=== PATIENT | male | born 1935 | race Caucasian/White ===

== ENCOUNTER 2024-02-12 10:46 | Inpatient (IN) | payer MEDICARE, OTHER, SELFPAY ==
[2024-02-12] VITALS (18 sets, daily range): BP systolic 86–148; BP diastolic 48–78; PULSE 90–126; RESP 16–24; TEMP 36.2–36.8; O2SAT 92–100; BMI 29.4
--- NOTE | 2024-02-12 10:56 | ECG_ITS ---
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 Measurements Intervals [place] Rate: 123 P: 44 SC: 168 QRS: -14 QRSD: 80 T: 63 QT: 415 QTc: 594 Interpretive Statements SINUS TACHYCARDIA LOW QRS VOLTAGE IN PRECORDIAL LEADS [QRS DEFLECTION < 1.0 mV IN CHEST LEADS] PATTERN CONSISTENT WITH PULMONARY DISEASE Compared to ECG 01/26/2023 17:03:04 Low QRS voltage now present Sinus rhythm no longer present First degree AV block no longer present Electronically Signed On 02-12-2024 17:56:37 CDT by Marii Quinn M.D. [email or web address] [email or web address]/store/[id number]
--- NOTE | 2024-02-12 11:17 | ED_ITS ---
HPI - Nausea/Vomiting/Diarrhea 2 General: Chief complaint: Nausea/Vomiting/Diarrhea Stated complaint: N/V/D, weakness Time Seen by Provider: 02/12/24 10:55 Source: patient and family Mode of arrival: EMS History of Present Illness: 88-year-old male presents emergency room with complaints of nausea with diarrhea for the last 3 days copious amounts of watery brown stool denies any hematemesis or coffee-ground emesis denies hematochezia or melena. He is not on any anticoagulants. He does take an aspirin daily. No recent antibiotics. MD elicited complaint: nausea and diarrhea Onset (ago): day(s) Associated nausea: No Associated abdominal pain: Yes Location of pain: None Pain consistency: constant Severity: mild Quality: cramping Relieving factors: none Associated symtoms: Denies altered mental status, anxiety, bloating, change in vision, chest pain, cough, diaphoresis, decreased urine output, dizziness, dysuria, epistaxis, fatigue, fecal incontinence, fevers/chills, headache(s), anorexia, malaise, myalgias, nausea, numbness, palpitations, rash, short of breath, syncope, tenesmus, tinnitus or weakness Review of Systems 2 Const: Denies: fever(s), chills, fatigue, malaise or diaphoresis Eyes: Denies: change in vision ENMT: Denies: tinnitus or epistaxis Card: Denies: chest pain, palpitations or syncope Resp: Denies: dyspnea GI: Denies: nausea, bloating or fecal incontinence : Denies: dysuria Musc: Denies: neck pain or back pain Skin/Breast: Denies: rash Neuro: Denies: headache(s) or dizziness Psych: Denies: anxiety PFSH ED 2 PFSH: Medical History Anemia Carotid artery disease Cerebrovascular accident DJD (degenerative joint disease) Hyperlipidemia Hypertension Hypokalemia 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) Surgical History History of cataract surgery History of left-sided carotid endarterectomy Family History Other Cancer Social History Smoking and tobacco/nicotine status: current every day tobacco/nicotine user smokeless tobacco Alcohol intake: never Physical Exam 2 Const: EXAM LIMITATIONS: no altered mental status GENERAL APPEARANCE: c ooperative and comfortable ORIENTATION/CONSCIOUSNESS: Yes awake, Yes oriented to person, Yes oriented to place and Yes oriented to time HENMT: COMMON NORMALS: normocephalic, atraumatic and hearing grossly normal bilaterally HEAD & SCALP: normocephalic and atraumatic Resp: COMMON NORMALS: normal respiratory effort, No retractions, No use of accessory muscles and clear to auscultation bilaterally AUSCULTATION: clear to auscultation bilaterally Cardio: COMMON NORMALS: regular rate, regular rhythm and No murmurs present (Cardio) RATE: regular rate RHYTHM: regular rhythm GI: COMMON NORMALS: No hepatosplenomegaly present AUSCULTATION: Yes Absent bowel sounds PALPATION: Yes Tenderness to palpation present (GI), No Guarding due to palpation present (GI) and Yes No hepatosplenomegaly present Extremity: COMMON NORMALS: normal to inspection, capillary refill normal, no clubbing, cyanosis or edema, no calf tenderness and no pedal edema Neuro: SENSORIUM/ORIENTATION: Yes oriented to person, Yes oriented to place and Yes oriented to time Skin: COMMON NORMALS: no rashes or lesions noted GENERAL SKIN EXAM: no rashes or lesions noted Course 2 Vital Signs: Vital signs: Vital Signs Temperature 98.3 F 02/12/24 10:52 Pulse Rate 106 H 02/12/24 12:01 Respiratory Rate 24 H 02/12/24 12:01 Blood Pressure 96/56 02/12/24 12:01 Pulse Oximetry 95 02/12/24 12:01 Oxygen Delivery Me thod Room Air 02/12/24 12:01 MDM - Nausea/Vomiting/Diarrhea Medical Decision Making In December 2022 patient was noted to have a colonic mass. Patient tells me today he was aware this elected not to do any follow-up. On the CT today as it increased and it is increased in size is also evidence of prostate CA. It is not obstructing his colon at the splenic flexure causing air-fluid levels backing up multiple with the stomach. NG applied started on Zosyn as there is some pneumatosis of the colon proximal to the area of obstruction. Will admit to consult surgery. Medical Records I reviewed the patient's medical records. Lab Data I reviewed the patient's lab results. 02/12/24 11:07 02/12/24 11:07 Radiology Impressions Abdomen/Pelvis CT 02/12/24 11:56 IMPRESSION: 1. Diffuse nodular thickening of the mid and distal transverse colon with luminal narrowing highly suspicious for neoplasm progressed compared to previous. Transition point to normal caliber bowel distal to the suspected neoplasm. Diffuse bowel obstruction proximal to the transition point. Recommend further evaluation with colonoscopy. 2. Induration about the suspected neoplasm suspicious for surrounding mesenteric invasion. 3. Proximal bowel obstruction with air-fluid level in the stomach and moderate esophageal hiatal hernia with fluid. 4. Diffuse distended loops of small bowel with air-fluid levels. 5. Distended RIGHT colon and proximal transverse colon with pneumatosis in the cecum and hepatic flexure. 6. Markedly enlarged nodular prostate suspicious for neoplasia with bladder outlet obstruction and nodular thickening of the seminal vesicles. 7. Nodular thickening of the rectosigmoid segment which may be due to stool but neoplasm not excluded. 8. Cholelithiasis with gallbladder wall calcification. Notified Ashish Mcgee DO at 02/12/2024 1:05 PM. Laboratory Results WBC 17.10 10^3/uL (3.29-11.43) H 02/12/24 11:07 RBC 5.15 10^6/uL (3.85-5.65) 02/12/24 11:07 Hgb 9.20 g/dL (11.27-16.99) L 02/12/24 11:07 Hct 31.3 % (37-53) L 02/12/24 11:07 MCV 60.8 fl (82-101) L 02/12/24 11:07 MCH 17.9 pg (27-33) L 02/12/24 11:07 MCHC 29.4 g/dL (30-55) L 02/12/24 11:07 RDW 23.1 % (12.1-15.1) H 02/12/24 11:07 Plt Count 722 10^3/cmm (157-399) H 02/12/24 11:07 MPV 8.2 fL (7.4-10.4) 02/12/24 11:07 Neut % (Auto) 79.9 % 02/12/24 11:07 Lymph % (Auto) 7.1 % 02/12/24 11:07 [place] % (Auto) 12.4 % 02/12/24 11:07 Eos % (Auto) 0.1 % 02/12/24 11:07 Baso % (Auto) 0.2 % 02/12/24 11:07 Neut # (Auto) 13.66 10^3/uL (1.8-7.7) H 02/12/24 11:07 Lymph # (Auto) 1.2 10^3/uL (0.8-4.8) 02/12/24 11:07 [place] # (Auto) 2.1 10^3/uL (0.2-0.9) H 02/12/24 11:07 Eos # (Auto) 0.0 10^3/uL (0.0-0.8) 02/12/24 11:07 Baso # (Auto) 0.0 10^3/uL (0.0-0.1) 02/12/24 11:07 Nucleated RBC % (auto) 0 % 02/12/24 11:07 Nucleated RBCs # 0.0 /100WBC 02/12/24 11:07 Anisocytosis 3+ H 02/12/24 11:07 Microcytosis 2+ H 02/12/24 11:07 Viry Cells 3+ H 02/12/24 11:07 Acanthocytes (Spur) 1+ H 02/12/24 11:07 Sodium 134 mmol/L (136-145) L 02/12/24 11:07 Potassium 3.6 mmol/L (3.5-5.1) 02/12/24 11:07 Chloride 97 mmol/L (98-107) L 02/12/24 11:07 Carbon Dioxide 18 mmol/L (22-29) L 02/12/24 11:07 Anion Gap 22.6 (5-19) H 02/12/24 11:07 BUN 21 mg/dL (8-23) 02/12/24 11:07 Creatinine 1.0 mg/dL (0.7-1.2) 02/12/24 11:07 GFR Calculation Not Reportable 02/12/24 11:07 Glucose 211 mg/dL (65-115) H 02/12/24 11:07 Calculated Osmolality 287 mOsm/kg (285-295) 02/12/24 11:07 Calcium 8.1 mg/dL (8.5-10.5) L 02/12/24 11:07 Magnesium 1.9 mg/dL (1.7-2.3) 02/12/24 11:07 Total Bilirubin 0.6 mg/dL (0.15-1.2) 02/12/24 11:07 AST 15 U/L (0-40) 02/12/24 11:07 ALT 10 U/L (0-41) 02/12/24 11:07 Alkaline Phosphatase 107 U/L (40-130) 02/12/24 11:07 Creatine Kinase 47 U/L (39-308) 02/12/24 11:07 Troponin T Baseline 11 ng/L (0-15) 02/12/24 11:07 Total Protein 6.1 g/dL (6.6-8.7) L 02/12/24 11:07 Albumin 2.7 g/dL (3.5-5.2) L 02/12/24 11:07 Globulin 3.4 g/dL (1.3-4.6) 02/12/24 11:07 Lipase 5 U/L (13-60) L 02/12/24 11:07 All radiology interpretation(s) finalized by discharge Discharge Plan Discharge Patient Disposition: Admitted As Inpatient Clinical Impression: Colonic mass, Enlarged prostate, Obstruction, colon Condition: Stable Coding Level of Care Code ED Sampler Radioactive Waste for Zeferino Valderrama
[2024-02-12 11:20] LABS: Basophils % 0.2 %; Eosinophils % 0.1 %; Hematocrit 31.3 % (37-53); Lymphocytes # 1.2 10^3/uL (0.8-4.8); Lymphocytes % 7.1 %; Mean Corpuscular HGB Conc 29.4 g/dL (30-55); Mean Corpuscular Hemoglobin 17.9 pg (27-33); Mean Corpuscular Volume 60.8 fl (82-101); Mean Platelet Volume 8.2 fL (7.4-10.4); Monocytes # 2.1 10^3/uL (0.2-0.9); Monocytes % 12.4 %; Neutrophils # 13.66 10^3/uL (1.8-7.7); Neutrophils % 79.9 %; Nucleated Red Blood Cells % 0 %; Platelet Count 722 10^3/cmm (157-399); Red Blood Count 5.15 10^6/uL (3.85-5.65); Red Cell Distribution Width 23.1 % (12.1-15.1)
[2024-02-12 11:36] LABS: Alanine Aminotransferase 10 U/L (0-41); Albumin Level 2.7 g/dL (3.5-5.2); Alkaline Phosphatase 107 U/L (40-130); Anion Gap 22.6 (5-19); Aspartate Amino Transferase 15 U/L (0-40); Blood Urea Nitrogen 21 mg/dL (8-23); Calcium 8.1 mg/dL (8.5-10.5); Carbon Dioxide 18 mmol/L (22-29); Chloride 97 mmol/L (98-107); Creatine Phosphokinase 47 U/L (39-308); Creatinine Clr Calc Pharmacy 50.8909; Globulin 3.4 g/dL (1.3-4.6); Glucose 211 mg/dL (65-115); Lipase 5 U/L (13-60); Magnesium 1.9 mg/dL (1.7-2.3); Osmolality Calculated 287 mOsm/kg (285-295); Potassium 3.6 mmol/L (3.5-5.1); Sodium 134 mmol/L (136-145); Total Bilirubin 0.6 mg/dL (0.15-1.2); Total Protein 6.1 g/dL (6.6-8.7); Troponin(5th) Baseline 11 ng/L (0-15)
[2024-02-12 11:45] LABS: Add RBC Morph Yes
[2024-02-12 11:46] LABS: Acanthocytes 1+; Anisocytosis 3+; Burr Cells 3+; Microcytosis 2+; RBC Morph Comp No; Slide Review Slide Review Perform
[2024-02-12] MEDS: sodium chloride 0.9% 1,000 ML 999 ML IV (11:51)
[2024-02-12] MEDS: ondansetron 2 mg/ML SDV 2 mL 4 MG IVP (11:54)
--- NOTE | 2024-02-12 11:56 | CT_ITS ---
WS: [id number] CT ABDOMEN PELVIS TECHNIQUE: Noncontrast CT of the abdomen and pelvis with coronal and sagittal reformatted images. CLINICAL INFORMATION: Abdominal pain COMPARISON: 01/27/2023 DLP: 774.[address] scans at [facility] use at least one of these dose optimization techniques: automated e xposure control; mA and/or kV adjustment per patient size (includes targeted exams where dose is matc hed to clinical indication); or iterative reconstruction. FINDINGS: Previously described suspected neoplasm involving the transverse colon appears progressed today lalo red to previous with diffuse nodular colonic wall thickening involving the mid and distal transverse colon with luminal narrowing. Transition point to normal colon distal to the suspected neoplasm. Susp ected neoplasm extends over approximately 9 cm of colon. Distal colon is decompressed. Sigmoid colon is decompressed. Nodular thickening involving the distal sigmoid colon. Recommend further evaluation of the above findings with colonoscopy. A few sigmoid diverticuli. Tortuous sigmoid colon. Air-fluid level in the stomach. Moderate esophageal hiatal hernia with fluid in the hiatal hernia. Di stended loops of fluid-filled small bowel with air-fluid levels. Distended RIGHT colon and proximal t ransverse colon with air-fluid levels. Pneumatosis in the cecum and hepatic flexure. Markedly enlarged nodular prostate suspicious for neoplasm measuring 5.5 cm with diffuse nodular thic kening of the seminal vesicles. Diffuse bladder wall thickening compatible with bladder outlet obstru ction. Gallbladder calcifications similar to previous. Coronary calcification. Fibrosis in the lung b ases. Dense aortic calcification. Tiny fat-containing umbilical hernia. Fatty atrophy of the pancreas . Adrenal glands are normal. Bilateral renal cortical atrophy. RIGHT renal cyst. No hydronephrosis in either kidney. Advanced spondylitic changes lumbar spine with grade [address]5 on S1. CT/CT abdomen pelvis wo con [id number] IMPRESSION: 1. Diffuse nodular thickening of the mid and distal transverse colon with delvin nal narrowing highly suspicious for neoplasm progressed compared to previous. T ransition point to normal caliber bowel distal to the suspected neoplasm. Diffu se bowel obstruction proximal to the transition point. Recommend further evalua tion with colonoscopy. 2. Induration about the suspected neoplasm suspicious for surrounding mesenter ic invasion. 3. Proximal bowel obstruction with air-fluid level in the stomach and moderate esophageal hiatal hernia with fluid. 4. Diffuse distended loops of small bowel with air-fluid levels. 5. Distended RIGHT colon and proximal transverse colon with pneumatosis in the cecum and hepatic flexure. 6. Markedly enlarged nodular prostate suspicious for neoplasia with bladder ou tlet obstruction and nodular thickening of the seminal vesicles. 7. Nodular thickening of the rectosigmoid segment which may be due to stool bu t neoplasm not excluded. 8. Cholelithiasis with gallbladder wall calcification. Notified Ashish Mcgee DO at 02/12/2024 1:05 PM.
--- NOTE | 2024-02-12 12:56 | ECG_ITS ---
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 Measurements Intervals [place] Rate: 104 P: 46 UT: 186 QRS: -10 QRSD: 82 T: 0 QT: 352 QTc: 464 Interpretive Statements SINUS TACHYCARDIA LOW QRS VOLTAGE IN PRECORDIAL LEADS [QRS DEFLECTION < 1.0 mV IN CHEST LEADS] Nonspecific T wave changes ABNORMAL RHYTHM ECG Compared to ECG 02/12/2024 11:01:27 No significant changes Electronically Signed On 02-12-2024 18:09:45 CDT by Marii Quinn M.D. [id number]
--- NOTE | 2024-02-12 13:28 | XRR_ITS ---
PROCEDURE INFORMATION: Exam: XR Chest Exam date and time: 02/12/2024 1:29 PM Age: 88 years old Clinical indication: Device placement; Ng tube; Additional info: Ng tube placement TECHNIQUE: Imaging protocol: Radiologic exam of the chest. Views: 1 view. COMPARISON: CR XR chest 2V* [id number] 08/12/2021 11:01 AM FINDINGS: Tubes, catheters and devices: In NG tube is seen with distal aspect of the catheter in the upper left abdomen at the expected level of the mid stomach. Lungs: Visualized lung suggests component of basilar atelectasis. Pleural spaces: No significant pleural effusion or pneumothorax. Heart/Mediastinum: Unremarkable. No cardiomegaly. Arteriosclerosis of the thoracic aorta. Bones/joints: Degenerative bony changes. Intraperitoneal space: No indication of free air. Gastrointestinal tract: Visualized dilated small bowel loops and right colon, as noted on CT exam. XR/XR chest 1V portable [id number] IMPRESSION: NG tube appears at the expected level of the mid stomach in the upper left abdomen.
[2024-02-12] MEDS: piperacillin-tazobactam 3.375 GM in sodium chloride 0.9% (plus) 50 ML IV ×2 (13:40→23:39)
[2024-02-12 14:10] LABS: Lactic Sepsis W/Reflex 6.4 mmol/L (0.5-2.2)
[2024-02-12 14:14] LABS: Troponin 5 2HR 10.21 ng/L (0-15)
[2024-02-12 14:15] LABS: Troponin 5 2HR Delta -0.79 ABS# (0-10)
[2024-02-12 15:05] LABS: Add Urine Microscopic? YES; Bilirubin Urine 1+ (Negative); Blood Urine Neg (Negative); Glucose Urine UA Norm (Normal); Ketones Urine 2+ (Negative); Leukocyte Esterase Urine Trace (Negative); Nitrate Urine Negative (Negative); Protein Urine 1+ (Negative); Urine Appearance Clear (CLEAR); Urine Color Amber (Yellow); Urobilinogen Urine 4 mg/dL (Negative); pH Urine 5 (5-7)
[2024-02-12 15:06] LABS: Add Urine Culture? No; Amorphous Sediment Urine 1+ /hpf; Hyaline Casts Urine 0-4 /lpf; Mucus Urine 1+ /hpf; Sperm Urine 1+ /hpf; Squamous Epithelial Cell Urine 0-4 /hpf (0-5); WBC Urine RARE /hpf (0-5)
[2024-02-12 15:29] LABS: Reflex Lactate Order REFLEX LACTIC ORDERD
--- NOTE | 2024-02-12 15:37 | P.ANESASSM_ITS ---
Pre-Anesthetic Assessment Height/Weight: Height 1.68 m Weight 83.915 kg Temp Pulse Resp BP Pulse Ox O2 Del Method 98.3 F 102 H 18 98/48 96 Room Air 02/12/24 10:52 02/12/24 15:04 02/12/24 15:04 02/12/24 15:04 02/12/24 15:04 02/12/24 15:04 Operation Date: 02/12/24 16:30 Proposed Procedures p Exploratory Laparotomy, bowel resection, ostomy creation(Not Applicable) - Marcus Calderon, DO Social No alcohol chews tobacco Airway Submandibular: within normal limits Cervical ROM: within normal limits Mallampati: Class I Pulmonary None reported CV/HEM Hypertension None reported Hepatic None reported GI ngt in place Metabolic None reported Neuropsych Cerebrovascular Accident s/p CEA Anesthetic Plan ASA status: 3E Anesthesia: General Other: plan RSI Risk of > 500 ml blood loss (7ml/kg in children): Yes, adequate IV access and fluids planned Medications/Allergies Home Medications Medication Instructions Recorded Confirmed Last Taken Type aspirin 325 mg tablet 325 mg PO DAILY 30 days #30 tabs 01/29/23 02/12/24 02/12/24 Rx atorvastatin 40 mg tablet 80 mg (2 x 40 mg) PO BEDTIME 30 05/04/23 02/12/24 02/11/24 Rx days #180 tabs losartan 25 mg tablet 25 mg PO DAILY #90 tabs 05/04/23 02/12/24 02/12/24 Rx acetaminophen 500 mg tablet 500 mg PO Q6H PRN Pain 02/12/24 02/12/24 Unknown History hydrochlorothiazide 25 mg tablet 12.5 mg PO DAILY 02/12/24 02/12/24 02/12/24 History saw palmetto 450 mg capsule 450 mg PO BID 02/12/24 02/12/24 02/12/24 History sennosides 8.6 mg-docusate sodium 1 tab-cap PO DAILY PRN Constipation 02/12/24 02/12/24 Unknown History 50 mg tablet (Senokot-S) Allergies Allergy/AdvReac Type Severity Reaction Status Date / Time Sulfa (Sulfonamide Allergy Severe Unknown Verified 02/12/24 11:01 Antibiotics) acetaminophen [From Percocet] AdvReac Severe stomach Verified 02/12/24 11:01 pain oxycodone [From Percocet] AdvReac Severe stomach Verified 02/12/24 11:01 pain [facility] Anesthesia Medical History Anemia Carotid artery disease Cerebrovascular accident DJD (degenerative joint disease) Hyperlipidemia Hypertension Hypokalemia 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) Surgical History History of cataract surgery History of left-sided carotid endarterectomy Family History Other Cancer Social History Smoking and tobacco/nicotine status: current every day tobacco/nicotine user smokeless tobacco Alcohol intake: never Data Anesthesia 02/12/24 11:07 02/12/24 11:07 Short CBC 02/12/24 Range/Units 11:07 WBC 17.10 H (3.29-11.43) 10^3/uL Hgb 9.20 L (11.27-16.99) g/dL Hct 31.3 L (37-53) % MCV 60.8 L (82-101) fl Plt Count 722 H (157-399) 10^3/cmm Neut % (Auto) 79.9 % Neut # (Auto) 13.66 H (1.8-7.7) 10^3/uL BMP 02/12/24 11:07 Sodium 134 L Potassium 3.6 Chloride 97 L Carbon Dioxide 18 L BUN 21 Creatinine 1.0 Glucose 211 H Calcium 8.1 L Cardiac Enzymes 02/12/24 02/12/24 Range/Units 11:07 13:47 Creatine Kinase 47 (39-308) U/L Troponin T Baseline 11 (0-15) ng/L Troponin T 120 Minute 10.21 (0-15) ng/L Delta Troponin T -0.79 L (0-10) ABS# Liver Function 02/12/24 Range/Units 11:07 Total Bilirubin 0.6 (0.15-1.2) mg/dL AST 15 (0-40) U/L ALT 10 (0-41) U/L Alkaline Phosphatase 107 (40-130) U/L Albumin 2.7 L (3.5-5.2) g/dL Urine 02/12/24 Range/Units 14:26 Urine Color Natalia (Yellow) Urine Appearance Clear (CLEAR) Urine pH 5 (5-7) Ur Specific [place] 1.020 (1.005-1.030) Urine Protein 1+ H (Negative) Urine Glucose (UA) Norm (Normal) Urine Ketones 2+ H (Negative) Urine Nitrate Negative (Negative) Urine Bilirubin 1+ H (Negative) Ur Leukocyte Esterase Trace H (Negative) Urine RBC None (0-2) /hpf Urine WBC Rare (0-5) /hpf Blood Bank 02/12/24 13:47 Blood Type A Positive Rho(D) Type Rh positive Antibody Screen Negative Microbiology 02/12/24 14:36 Blood Culture - Preliminary Blood SPECIMEN COLLECTED 02/12/24 14:44 Blood Culture - Preliminary Blood SPECIMEN COLLECTED Cardiac Studies: 2 Echocardiogram 01/26/23
[2024-02-12] MEDS: sodium chloride 0.9% 1,000 ML 30 ML IV (16:26)
--- NOTE | 2024-02-12 16:41 | P.HP_ITS ---
Providers/Chief Complaint 2 Admitting Physician: Marcus Calderon DO Primary Care Provider: Erik Morgan MD Chief Complaint: N/V/D, weakness History of Present Illness Maurice Whitehead is a 88 year old male who presented to the hospital with a 2-day history of abdominal pain nausea diarrhea and anorexia. He reports that he has been unable to eat. He has past medical history of CVA x 2 on only aspirin 325 mg daily. He last took it this morning. He has not had anything to eat or drink for the last 2 days. 1 year ago he was found to have a mass in his transverse colon that he elected not to treat. Currently has diffuse abdominal pain. Patient makes pain worse. Nothing makes pain better. Pain is dull and constant and does not radiate. He denies any emesis, hematochezia and/or melena. A CT of the abdomen pelvis shows a large bowel obstruction with an obstructing mass in his distal transverse colon. There also appears to be some pneumatosis of the cecum and a possible rectal mass. Review of Systems 2 General: Reports: 10 or more systems reviewed and unremarkable except in HPI and below Medications/Allergies Home Medications Medication Instructions Recorded Confirmed Last Taken Type aspirin 325 mg tablet 325 mg PO DAILY 30 days #30 tabs 01/29/23 02/12/24 02/12/24 Rx atorvastatin 40 mg tablet 80 mg (2 x 40 mg) PO BEDTIME 30 05/04/23 02/12/24 02/11/24 Rx days #180 tabs losartan 25 mg tablet 25 mg PO DAILY #90 tabs 05/04/23 02/12/24 02/12/24 Rx acetaminophen 500 mg tablet 500 mg PO Q6H PRN Pain 02/12/24 02/12/24 Unknown History hydrochlorothiazide 25 mg tablet 12.5 mg PO DAILY 02/12/24 02/12/24 02/12/24 History saw palmetto 450 mg capsule 450 mg PO BID 02/12/24 02/12/24 02/12/24 History sennosides 8.6 mg-docusate sodium 1 tab-cap PO DAILY PRN Constipation 02/12/24 02/12/24 Unknown History 50 mg tablet (Senokot-S) Allergies Allergy/AdvReac Type Severity Reaction Status Date / Time Sulfa (Sulfonamide Allergy Severe Unknown Verified 02/12/24 11:01 Antibiotics) acetaminophen [From Percocet] AdvReac Severe stomach Verified 02/12/24 11:01 pain oxycodone [From Percocet] AdvReac Severe stomach Verified 02/12/24 11:01 pain PFSH Acute 2 PFSH: Medical History Anemia Hypokalemia Hyperlipidemia DJD (degenerative joint disease) Carotid artery disease Hypertension 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) Cerebrovascular accident Surgical History History of cataract surgery History of left-sided carotid endarterectomy Family History Other Cancer Social History Smoking and tobacco/nicotine status: current every day tobacco/nicotine user smokeless tobacco Alcohol intake: never Vitals/I&O/Wt Last Vital Signs Temp 97.8 F 02/12/24 15:40 Pulse 103 H 02/12/24 15:40 Resp 16 02/12/24 15:40 BP 135/54 02/12/24 15:40 Pulse Ox 96 02/12/24 15:40 O2 Del Method Room Air 02/12/24 15:40 02/12/24 02/12/24 02/12/24 06:59 14:59 22:59 Intake Total 1000 / 1000 50 / 1050 Balance 1000 / 1000 50 / 1050 Weight last 48 hrs Weight 185 lb Physical Exam 2 Narrative: General : Patient is well developed , no acute distress, oriented x3 Head : Normal cephalic, a-traumatic. Ears : Pinnae and external canal are normal. Hearing is normal. Eyes : PERRLA, Sclera and injection are normal. No conjunctival discharge. Nose : Mucous membranes are without erythema. Throat : buccal mucosa is normal, gums are without significant recession or hypertrophy. Lungs : Equal chest rise bilaterally, no use of accessory muscles, trachea is midline. Cor : Rate and rhythm are normal. Abdomen : Soft, distended, mild diffuse tenderness, no g/r/m Extremities : No edema, no cyanosis or clubbing, dorsalis pedis pulses are present bilaterally, non-tender to palpation of calves. Upper extremities are normal bilaterally. Back : non-tender to palpation, no CVA tenderness. Neuro : CN II - XII intact, Upper and lower extremities have equal and full strength Urinary Catheter Management: Dougherty: Cath Placed During This Visit: yes Urinary Catheter Date of Insertion: 02/12/24 Urinary Catheter Time of Insertion: 14:30 Data 02/12/24 11:07 02/12/24 11:07 Micro: Microbiology 02/12/24 14:36 Blood Culture - Preliminary Blood SPECIMEN COLLECTED 02/12/24 14:44 Blood Culture - Preliminary Blood SPECIMEN COLLECTED A&P Assessment and plan (1) Obstruction, colon: (2) Colonic mass: (3) Rectal mass: (4) SIRS (systemic inflammatory response syndrome): Plan After long discussion with the patient, his and his son, he wants to proceed with all medical and surgical interventions. He is full code. Zosyn Type and cross Transfuse 1 below platelets because he took full dose aspirin this morning NG tube IV fluids Exploratory laparotomy with bowel resection and ostomy formation The risks and benefits of the procedure, including but not limited to, bleeding, infection, scar, numbness, pain, damage to surrounding structures, ostomy malfunction, possible need for further surgery, , or explained to the patient. He is understanding of the risks and wishes to proceed. I fully explained to the patient and his family that this is an extensive surgery and he may not do well afterwards. This is not a curative surgery regarding his colon mass and we will not be addressing his possible rectal mass during the surgery. He still wants to proceed Consult hospitalist Attestations 2 Medical Necessity Statement*: Patient requires multiple nights in the hospital for recovery after exploratory laparotomy with bowel resection and ostomy formation Coding Level of Care Code 86823 Diagnoses Obstruction, colon K56.609 Colonic mass K63.89 Rectal mass K62.89 SIRS (systemic inflammatory response syndrome) R65.10
--- NOTE | 2024-02-12 17:50 | P.CONIM_ITS ---
Providers/Reason For Consult 2 Attending Physician: Marcus Calderon DO Primary Care Provider: Erik Morgan MD History of Present Illness History of Present Illness Maurice Whitehead is a 88 year old male Presented with 2-day history abdominal pain nausea vomiting anorexia. Hospital service was consulted for postoperative management, patient went for exploratory laparotomy with Dr. Calderon. Patient meets sepsis criteria with tachypnea tachycardia, leukocytosis, endorgan damage, high lactic acid, CEA levels are high as well Review of Systems 2 Const: Reports: malaise Eyes: Denies: change in vision Card: Denies: chest pain Resp: Reports: dyspnea GI: Reports: abdominal pain and nausea Medications/Allergies Home Medications Medication Instructions Recorded Confirmed Last Taken Type aspirin 325 mg tablet 325 mg PO DAILY 30 days #30 tabs 01/29/23 02/12/24 02/12/24 Rx atorvastatin 40 mg tablet 80 mg (2 x 40 mg) PO BEDTIME 30 05/04/23 02/12/24 02/11/24 Rx days #180 tabs losartan 25 mg tablet 25 mg PO DAILY #90 tabs 05/04/23 02/12/24 02/12/24 Rx acetaminophen 500 mg tablet 500 mg PO Q6H PRN Pain 02/12/24 02/12/24 Unknown History hydrochlorothiazide 25 mg tablet 12.5 mg PO DAILY 02/12/24 02/12/24 02/12/24 History saw palmetto 450 mg capsule 450 mg PO BID 02/12/24 02/12/24 02/12/24 History sennosides 8.6 mg-docusate sodium 1 tab-cap PO DAILY PRN Constipation 02/12/24 02/12/24 Unknown History 50 mg tablet (Senokot-S) Allergies Allergy/AdvReac Type Severity Reaction Status Date / Time Sulfa (Sulfonamide Allergy Severe Unknown Verified 02/12/24 11:01 Antibiotics) acetaminophen [From Percocet] AdvReac Severe stomach Verified 02/12/24 11:01 pain oxycodone [From Percocet] AdvReac Severe stomach Verified 02/12/24 11:01 pain Current Medications Generic Name Dose Route Start Last Admin Trade Name Freq PRN Reason Stop Dose Admin Sodium Chloride 1,000 mls @ 30 mls/hr 02/12/24 16:15 02/12/24 17:36 Sodium Chloride 0.9% IV Infused .Q24H MICKI Infusion PFSH Acute 2 PFSH: Medical History Anemia Hypokalemia Hyperlipidemia DJD (degenerative joint disease) Carotid artery disease Hypertension 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) Cerebrovascular accident Surgical History History of cataract surgery History of left-sided carotid endarterectomy Family History Other Cancer Social History Smoking and tobacco/nicotine status: current every day tobacco/nicotine user smokeless tobacco Alcohol intake: never Vitals/I&O/Wt Last Vital Signs Temp 97.8 F 02/12/24 15:40 Pulse 103 H 02/12/24 15:40 Resp 16 02/12/24 15:40 BP 135/54 02/12/24 15:40 Pulse Ox 96 02/12/24 15:40 O2 Del Method Room Air 02/12/24 15:40 02/12/24 02/12/24 02/12/24 06:59 14:59 22:59 Intake Total 1000 / 1000 1050 / 2050 Balance 1000 / 1000 1050 / 2050 Weight last 48 hrs Weight 83.915 kg Physical Exam 2 Urinary Catheter Management: Dougherty: Cath Placed During This Visit: yes Urinary Catheter Date of Insertion: 02/12/24 Urinary Catheter Time of Insertion: 14:30 Data 02/12/24 11:07 02/12/24 11:07 Micro: Microbiology 02/12/24 14:36 Blood Culture - Preliminary Blood SPECIMEN COLLECTED 02/12/24 14:44 Blood Culture - Preliminary Blood SPECIMEN COLLECTED A&P Assessment and plan (1) Colonic mass: (2) Obstruction, colon: (3) Rectal mass: (4) Enlarged prostate: (5) SIRS (systemic inflammatory response syndrome): (6) Sepsis: (7) Dehydration: Plan Sepsis Criteria met with tachypnea tachycardia high lactic acid Endorgan damage Patient was treated 1 L in the ER, I will give him second liter He had received Zosyn, will add vancomycin to Zosyn as well Blood cultures taken, repeat lactic acid Patient to remain n.p.o. NG tube placed Exploratory laparotomy Continue IV fluids at maintenance rate Check CRP, CEA, phosphorus, magnesium, hemoglobin A1c level Patient's history history of anemia, carotid disease, CVA Patient is full code 2022 echo reviewed EF 57% grade 1 diastolic dysfunction N.p.o. History of hypertension: Hold hydrochlorothiazide Judicious use of antihypertensive regimen Considering urgent nature of surgical intervention no preoperative cardiac workup indicated Consult Attestations 2 Medical Necessity Statement: As per general surgery Diagnoses Colonic mass K63.89 Obstruction, colon K56.609 Rectal mass K62.89 Enlarged prostate N40.0 SIRS (systemic inflammatory response syndrome) R65.10 Sepsis A41.9 Dehydration E86.0
--- NOTE | 2024-02-12 17:51 | PC.RESP ---
EKG CANCELED DUE TO PT BEING IN SURGERY AND NOT AVAILABLE
--- NOTE | 2024-02-12 18:11 | PC.NURSE ---
called Blood Bank to verify timing of platelets given after 20 minute procurement.
[2024-02-12 18:25] LABS: D Dimer 6.16 ug/mLFEU (0-0.59)
[2024-02-12 18:32] LABS: Procalcitonin 0.81 ng/mL (0-0.5)
--- NOTE | 2024-02-12 18:58 | PC.NURSE ---
patient's updated at 1850
--- NOTE | 2024-02-12 19:42 | PM.OP ---
Operative Report Date of procedure: February 12, 2024 Pre-op diagnosis: Large bowel obstruction from transverse colon mass Umbilical hernia Post-op diagnosis: same Procedure done: Exploratory laparotomy with extended right hemicolectomy Primary repair of umbilical hernia Implants: None Specimens removed/disposition: Extended right hemicolectomy Hernia sac Surgeon: Marcus Calderon DO Anesthesia: General Estimated blood loss (mL): 20 Complications: None apparent Brief History: This very pleasant 88-year-old gentleman who presented to hospital with a known colon mass. It had become obstructive however. Exploratory laparotomy with bowel resection and possible ostomy formation was indicated. The risks and benefits were explained and documented. Procedure: Patient was wheeled operative room and placed on the OR table in the supine position. General endotracheal intubation was achieved by department anesthesia. The abdomen was inspected prepped and draped in usual sterile fashion. A timeout was performed. All present were in agreement. A pooled platelets began being transfused just prior to incision. A 10 blade scalpel was used to make a midline incision from the xiphoid down inferior to the umbilicus. There was an umbilical hernia encountered. Electrocautery was used and cut mode to go through the fascia. I placed my finger through the umbilical hernia and extended the celiotomy cephalad and caudad. Identified a large transverse colon mass near the splenic flexure. I transected the gastrocolic ligament using electrocautery and the LigaSure. The right white line of Toldt was taken down with electrocautery and blunt dissection. The splenic flexure was partially taken down with LigaSure. Several centimeters of transverse colon were still present distal to the mass. A [id number] functional end-to-end anastomosis was made between the ileum and the distal transverse colon using a AMAN stapler 100 mm blue load x 2. Mesentery was transected with LigaSure. Extended right hemicolectomy specimen was passed off. The abdomen was irrigated with 3 L of warm saline. Hemostasis was noted. I then used Bovie cautery to cut out the umbilical hernia sac. I began closing the laparotomy incision at the fascia with running #1 PDS x 2. Additional PDS sutures were placed in an interrupted fashion around the umbilical hernia. Skin was closed with tera. Sterile bandages applied. Patient tolerated procedure well.
[2024-02-12 21:15] LABS: Glucose Point of Care 161 mg/dL (70-110)
[2024-02-12 21:36] LABS: Thyroid Stimulating Hormone 3.24 uIU/mL (0.27-4.20)
--- NOTE | 2024-02-12 21:37 | P.CONIM_ITS ---
Providers/Reason For Consult 2 Consulting Physician/Specialty*: Colonic mass, bowel obstruction, BPH UTI sepsis, general surgery Reason for Consult*: Colonic mass, bowel obstruction, BPH UTI sepsis Attending Physician: Marcus Calderon DO Primary Care Provider: Erik Morgan MD History of Present Illness History of Present Illness Maurice Whitehead is a 88 year old male with a past medical history of CVA, anemia, carotid artery disease, hyperlipidemia, hypertension, history of right-sided CVA, who presents [facility] for large bowel obstruction from transverse colon mass, status post exploratory laparotomy with extended right hemicolectomy primary repair of umbilical hernia, currently patient is seen on [facility] she is alert to person, not to place, not to time, he is still under the effect of anesthetic he can answer basic yes or no questions but easily falls back asleep, he denies any chest pain, no shortness of breath, denies any headache, no fevers, currently n.p.o., blood pressure 122/60, pulse 97, respiratory 18 temperature 97.9 86% on room air, has a Dougherty catheter in place, NG tube to gravity in place Review of Systems 2 Card: Denies: chest pain Resp: Denies: dyspnea Medications/Allergies Home Medications Medication Instructions Recorded Confirmed Last Taken Type aspirin 325 mg tablet 325 mg PO DAILY 30 days #30 tabs 01/29/23 02/12/24 02/12/24 Rx atorvastatin 40 mg tablet 80 mg (2 x 40 mg) PO BEDTIME 30 05/04/23 02/12/24 02/11/24 Rx days #180 tabs losartan 25 mg tablet 25 mg PO DAILY #90 tabs 05/04/23 02/12/24 02/12/24 Rx acetaminophen 500 mg tablet 500 mg PO Q6H PRN Pain 02/12/24 02/12/24 Unknown History hydrochlorothiazide 25 mg tablet 12.5 mg PO DAILY 02/12/24 02/12/24 02/12/24 History saw palmetto 450 mg capsule 450 mg PO BID 02/12/24 02/12/24 02/12/24 History sennosides 8.6 mg-docusate sodium 1 tab-cap PO DAILY PRN Constipation 02/12/24 02/12/24 Unknown History 50 mg tablet (Senokot-S) Allergies Allergy/AdvReac Type Severity Reaction Status Date / Time Sulfa (Sulfonamide Allergy Severe Unknown Verified 02/12/24 11:01 Antibiotics) acetaminophen [From Percocet] AdvReac Severe stomach Verified 02/12/24 11:01 pain oxycodone [From Percocet] AdvReac Severe stomach Verified 02/12/24 11:01 pain PFSH Acute 2 PFSH: Medical History Anemia Hypokalemia Hyperlipidemia DJD (degenerative joint disease) Carotid artery disease Hypertension 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) Cerebrovascular accident Surgical History History of cataract surgery History of left-sided carotid endarterectomy Family History Other Cancer Social History Smoking and tobacco/nicotine status: current every day tobacco/nicotine user smokeless tobacco Alcohol intake: never Vitals/I&O/Wt Last Vital Signs Temp 97.9 F 02/12/24 20:50 Pulse 97 02/12/24 20:50 Resp 18 02/12/24 20:50 BP 122/68 02/12/24 20:50 Pulse Ox 96 02/12/24 20:50 O2 Del Method Room Air 02/12/24 20:50 O2 Flow Rate 6 02/12/24 20:03 02/12/24 02/12/24 02/12/24 06:59 14:59 22:59 Intake Total 1000 / 1000 1891 / 2891 Output Total 420 / 420 Balance 1000 / 1000 1471 / 2471 Weight last 48 hrs Weight 83.915 kg Physical Exam 2 Const: COMMON NORMALS: no acute distress ORIENTATION/CONSCIOUSNESS: Yes awake and Yes oriented to person; not oriented to place and not oriented to time Eye: COMMON NORMALS: Equal, round and reactive pupils present PUPIL: Yes Equal, round and reactive pupils present Resp: COMMON NORMALS: normal respiratory effort, No retractions, No use of accessory muscles and clear to auscultation bilaterally AUSCULTATION: clear to auscultation bilaterally Cardio: COMMON NORMALS: regular rate, regular rhythm, S1 normal heart sound present and S2 normal heart sound present RATE: regular rate RHYTHM: r egular rhythm HEART SOUNDS: S1 normal heart sound present and S2 normal heart sound present GI: COMMON NORMALS: Normal to inspection, nondistended, normoactive bowel sounds present and non-tender Extremity: COMMON NORMALS: no pedal edema Neuro: SENSORIUM/ORIENTATION: Yes oriented to person, No oriented to place and No oriented to time OTHER: Moving bilateral upper and lower extremities, can follow commands such as squeezing my fingers, wiggling his toes able to smile for me, but cannot follow any other complex neurologic testing as he is still under the effect of anesthetic, he has had a CVA on the right I cannot discern any weakness currently Urinary Catheter Management: Dougherty: Cath Placed During This Visit: yes Urinary Catheter Date of Insertion: 02/12/24 Urinary Catheter Time of Insertion: 14:30 Data 02/12/24 11:07 02/12/24 11:07 Micro: Microbiology 02/12/24 14:36 Blood Culture - Preliminary Blood SPECIMEN COLLECTED 02/12/24 14:44 Blood Culture - Preliminary Blood SPECIMEN COLLECTED A&P Assessment and plan (1) Colonic mass: (2) Obstruction, colon: (3) Rectal mass: (4) Enlarged prostate: (5) Cerebrovascular accident: (6) Sepsis: Plan Nausea, diarrhea 1. Diffuse nodular thickening of the mid and distal transverse colon with luminal narrowing highly suspicious for neoplasm progressed compared to previous. Transition point to normal caliber bowel distal to the suspected neoplasm. Diffuse bowel obstruction proximal to the transition point. Recommend further evaluation with colonoscopy. 2. Induration about the suspected neoplasm suspicious for surrounding mesenteric invasion. 3. Proximal bowel obstruction with air-fluid level in the stomach and moderate esophageal hiatal hernia with fluid. 4. Diffuse distended loops of small bowel with air-fluid levels. 5. Distended RIGHT colon and proximal transverse colon with pneumatosis in the cecum and hepatic flexure. 6. Markedly enlarged nodular prostate suspicious for neoplasia with bladder outlet obstruction and nodular thickening of the seminal vesicles. 7. Nodular thickening of the rectosigmoid segment which may be due to stool but neoplasm not excluded. 8. Cholelithiasis with gallbladder wall calcification Status post large bowel obstruction from transverse colon mass, status post exploratory laparotomy with extended right hemicolectomy primary repair of umbilical hernia ? Plan ? Surgery primary ? Morphine for pain control Zofran for nausea, ? N.p.o. ? NG tube in place ? Currently on vancomycin, Zosyn ? Pathology pending BPH with concerns for neoplasia, bladder outlet obstruction Markedly enlarged nodular prostate suspicious for neoplasia with bladder outlet obstruction and nodular thickening of the seminal vesicles. ? Plan ? Concerns for UTI, on antibiotics as above ? Dougherty catheter placed ? Will likely discharge with Dougherty catheter placed Sepsis, with elevated white blood cell count, elevated lactic acid, ? Secondary to above ? Follow blood cultures, follow urine culture ? Continue vancomycin, Zosyn Full code ? Heparin for DVT prophylaxis -Hold aspirin for now, decision to resume based on clinical discussion with surgery in the morning Consult Attestations 2 Medical Necessity Statement: Patient requires hospitalization for colonic mass, with bowel obstruction, status post laparotomy and right hemicolectomy, with UTI, with BPH with bladder outlet obstruction with sepsis, Diagnoses Colonic mass K63.89 Obstruction, colon K56.609 Rectal mass K62.89 Enlarged prostate N40.0 Cerebrovascular accident I63.9 Sepsis A41.9
[2024-02-12 22:37] LABS: Lactic Sepsis W/Reflex 2.4 mmol/L (0.5-2.2)
[2024-02-12] MEDS: sodium chloride 0.9% 1,000 ML 125 ML IV (23:39)
[2024-02-12] MEDS: vancomycin 1,750 MG/350 ML PIGGYBACK 233.330000000000013 MG IV (23:40)
[2024-02-12] MEDS: heparin 5,000 unit/mL INJ 1 mL 5000 UNIT SUBCUT (23:49)
[2024-02-12] MEDS: pantoprazole 40 mg SDV IVP (23:49)
[2024-02-12 23:59] LABS: Reflex Lactate Order REFLEX LACTIC ORDERD
[2024-02-13] VITALS (195 sets, daily range): BP systolic 71–166; BP diastolic 35–95; PULSE 86–108; RESP 16–28; TEMP 36.2–36.9; O2SAT 91–100
[2024-02-13] MEDS: morphine 4 mg/mL SDV 1 mL 2 MG IVP ×2 (00:47→21:22)
[2024-02-13 01:08] LABS: Basophils % 0.3 %; Hematocrit 25.9 % (37-53); Lymphocytes # 0.8 10^3/uL (0.8-4.8); Lymphocytes % 10.6 %; Mean Corpuscular HGB Conc 28.6 g/dL (30-55); Mean Corpuscular Hemoglobin 17.5 pg (27-33); Mean Corpuscular Volume 61.4 fl (82-101); Mean Platelet Volume 8.5 fL (7.4-10.4); Monocytes # 0.3 10^3/uL (0.2-0.9); Monocytes % 4.2 %; Neutrophils # 6.45 10^3/uL (1.8-7.7); Neutrophils % 84.2 %; Nucleated Red Blood Cells % 0 %; Platelet Count 530 10^3/cmm (157-399); Red Blood Count 4.22 10^6/uL (3.85-5.65); Red Cell Distribution Width 22.6 % (12.1-15.1); White Blood Count 7.65 10^3/uL (3.29-11.43)
[2024-02-13 01:25] LABS: Alanine Aminotransferase 14 U/L (0-41); Albumin Level 2.3 g/dL (3.5-5.2); Alkaline Phosphatase 77 U/L (40-130); Anion Gap 17.1 (5-19); Aspartate Amino Transferase 21 U/L (0-40); Blood Urea Nitrogen 27 mg/dL (8-23); C Reactive Protein 177.9 mg/L (0.0-4.9); Carbon Dioxide 20 mmol/L (22-29); Chloride 103 mmol/L (98-107); Creatinine Clr Calc Pharmacy 50.8909; Globulin 2.6 g/dL (1.3-4.6); Glucose 130 mg/dL (65-115); Magnesium 1.8 mg/dL (1.7-2.3); Osmolality Calculated 291 mOsm/kg (285-295); Phosphorus 2.6 mg/dL (2.5-4.5); Potassium 3.1 mmol/L (3.5-5.1); Sodium 137 mmol/L (136-145); Total Bilirubin 0.6 mg/dL (0.15-1.2); Total Protein 4.9 g/dL (6.6-8.7)
[2024-02-13 01:26] LABS: Lactic Acid level (Lactate) 3.4 mmol/L (0.5-2.2)
[2024-02-13 02:17] LABS: Slide Review Slide Review Perform
[2024-02-13] MEDS: sodium chloride 0.9% 1,000 ML 999 ML IV (02:41)
[2024-02-13 03:02] LABS: ABG PCO2 32.5 mmHg (35-45); ABG PH Result 7.44 (7.35-7.45); Alveolar-Arterial Oxygen Gradi 5.3 mmHg (5-10); Arterial Blood Gas Hematocrit 19.3 % (42-52); Base Excess ABG -1.7 mmol/L (-2.0-2.0); Blood Gas Sample Site Brachial, right; Blood Gas Sample Type Arterial; Carboxyhemoglobin 1.2 %THgb (0.4-20.1); HCO3 ABG 22.2 mmol/L (22-26); HGB O2 Sat 91.3 % (95-100); Methemoglobin 0.9 % (0.4-1.5); Oxygen Device ROOM AIR; Oxygen Saturation ABG 93.2; PO2 ABG 66.4 mmHg (80.0-100.0); Potassium Level - ABG 2.7 mmol/L (3.5-5.0); Total Hemoglobin 6.3 g/dL (14-18)
[2024-02-13] MEDS: sodium chloride 0.9% 1,000 ML 125 ML IV ×2 (03:42→04:54)
--- NOTE | 2024-02-13 04:00 | ECG_ITS ---
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 Measurements Intervals [place] Rate: 100 P: 188 ID: 102 QRS: 203 QRSD: 77 T: 173 QT: 332 QTc: 428 Interpretive Statements SINUS TACHYCARDIA WITH SHORT ID INTERVAL POSSIBLE RIGHT VENTRICULAR HYPERTROPHY [SOME/ALL OF: PROMINENT R IN V1, LATE TRANSITION, RAD, HELLEN, SSS] LATERAL MYOCARDIAL INFARCTION , OF INDETERMINATE AGE [40+ ms Q WAVE AND/OR ST/T ABNORMALITY IN I/aVL/V5/V6] Compared to ECG 02/12/2024 12:56:32 Short ID interval now present Myocardial infarct finding now present T-wave abnormality no longer present Electronically Signed On 02-13-2024 17:48:03 CDT by Lamberto Hampton M.D. [id number]
--- NOTE | 2024-02-13 04:14 | P.PNCC_ITS ---
Critical Care Event Note The high probability of a clinically significant, sudden or life threatening deterioration of the patient's [] system(s) required my full and direct attention, intervention and personal management. The critical care time is as shown. This time is in addition to time spent performing any reported procedures but includes the following: [x] Data and vital sign review and interpretation [x] Patient assessment, examination and intervention [x] Documentation [x] Medication orders and management Critical Care Time Code activated: No Critical Care Time (min): 35 Additional information about critical care time: Roughly 3 AM, blood pressures were 70s over 30s, patient less responsive, spoke to nursing staff, hemoglobin 7.4, he is receiving fluids at 125 cc, he is on prisca m air, pulse is 94 ? Gave instructions to give a liter of normal saline bolus, 1 unit of blood, ordered ABG awaiting morning labs, CBC, CMP, patient was placed in Trendelenburg, ? After 30 minutes, systolic blood pressures remain in the 70s, diastolic in the 30s patient is less responsive, difficult to arouse at times, remains on room air, pulse is 98, normal sinus rhythm, ? Patient was examined, he is alert to person, not to place, to time he does arouse with sternal rub moves both upper and lower extremities, he was placed in Trendelenburg by me, NG tube to suction, receiving his units of blood, receiving fluid bolus ? Review of labs, creatinine within normal limits ? Bicarb is 20 ? ABG reviewed, pH 7.44, pCO2 32.5 pO2 66.4, no significant acidosis ? Lactic acid has improved to 3.4 ? On examination equal breath sounds bilaterally, does have bilateral JVD distention, normal sinus rhythm, S1, S2, regular rate rhythm abdomen is soft, nondistended, nontender, no bowel sounds, surgical site looks clean and dry with abdominal pad on top, DP PT pulses are palpable, capillary refill less than 2 seconds, no significant mottling, femoral pulses palpated ? During my examination when he was placed in Trendelenburg, repeat blood pressures in our 90s over 60s, MAP around 68, he can arouse ? Likely patient is in shock, etiology potentially multifactorial, his anemia, a combination of anesthetic effect,-kalemia, sepsis ? His albumin is low 2.3, will give him albumin, continue fluid therapy continue blood therapy, moved down to ICU for consideration of Levophed based on clinical progress ? Will order serial troponins, serial EKGs ? Status is critical, prognosis guarded Coding Level of Care Code Acute Code for Chg Fwd
--- NOTE | 2024-02-13 04:16 | PC.NURSE ---
KAVIN notified nurse of pt low BP at 0230, Nurse rechecked BP manually and it was 72/44 MAP 53, Dr. Parsons notified and orders received for 1 L bolus NS, 1 unit PRBC, stat ABG, and to trendelenburg the patient for 30 minutes and recheck pt BP Q15M. notified when 1 liter bolus was complete and blood was about 1/3 finished, Nurse reported MAP of 47, patient only responding to painful stimuli. Dr. Parsons responded to the floor to assess the patient, orders received to transfer the patient to ICU. Report called to NATHAN Warren and patient transferred off the floor to ICU bed 2.
[2024-02-13] MEDS: albumin 50 G/200 ML BAG 60 G IV (04:47)
--- NOTE | 2024-02-13 04:58 | PC.NURSE ---
Nurse called to update family of transfer and got voicemail from Charly Abraham, and . Son Maurice Whitehead notified.
--- NOTE | 2024-02-13 06:00 | ECG_ITS ---
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 Measurements Intervals Cable Rate: 93 P: 22 KS: 180 QRS: -12 QRSD: 85 T: 26 QT: 361 QTc: 450 Interpretive Statements SINUS RHYTHM LOW QRS VOLTAGE IN PRECORDIAL LEADS [QRS DEFLECTION < 1.0 mV IN CHEST LEADS] NONSPECIFIC T-WAVE ABNORMALITY Compared to ECG 02/13/2024 04:26:44 Low QRS voltage now present T-wave abnormality now present Sinus tachycardia no longer present Short KS interval no longer present Myocardial infarct finding no longer present Electronically Signed On 02-13-2024 17:51:45 CDT by Lamberto Hampton M.D. [id number]
[2024-02-13 06:02] LABS: Hematocrit 27.2 % (37-53); Mean Corpuscular HGB Conc 29.8 g/dL (30-55); Mean Corpuscular Hemoglobin 18.9 pg (27-33); Mean Corpuscular Volume 63.4 fl (82-101); Mean Platelet Volume 8.7 fL (7.4-10.4); Platelet Count 466 10^3/cmm (157-399); Red Blood Count 4.29 10^6/uL (3.85-5.65); Red Cell Distribution Width 25.3 % (12.1-15.1); White Blood Count 10.52 10^3/uL (3.29-11.43)
[2024-02-13 06:14] LABS: INR 1.42 (0.8-1.2)
[2024-02-13 06:19] LABS: Troponin(5th) Baseline 21 ng/L (0-15)
[2024-02-13 06:20] LABS: Lactic Sepsis W/Reflex 1.8 mmol/L (0.5-2.2)
[2024-02-13 06:21] LABS: Alanine Aminotransferase 12 U/L (0-41); Albumin Level 2.7 g/dL (3.5-5.2); Alkaline Phosphatase 77 U/L (40-130); Anion Gap 16.5 (5-19); Aspartate Amino Transferase 23 U/L (0-40); Blood Urea Nitrogen 29 mg/dL (8-23); Calcium 6.9 mg/dL (8.5-10.5); Carbon Dioxide 20 mmol/L (22-29); Chloride 107 mmol/L (98-107); Creatinine Clr Calc Pharmacy 50.5696; Globulin 2.1 g/dL (1.3-4.6); Glucose 108 mg/dL (65-115); Osmolality Calculated 296 mOsm/kg (285-295); Potassium 3.5 mmol/L (3.5-5.1); Sodium 140 mmol/L (136-145); Total Bilirubin 0.6 mg/dL (0.15-1.2); Total Protein 4.8 g/dL (6.6-8.7)
[2024-02-13] MEDS: piperacillin-tazobactam 3.375 GM in sodium chloride 0.9% (plus) 50 ML IV ×3 (06:30→22:50)
--- NOTE | 2024-02-13 06:34 | P.ANESPOST_ITS ---
Inpatient post-anesthesia follow up: Vital signs: Temperature 97.4 F Pulse Rate 96 Respiratory Rate 19 Blood Pressure 95/56 Pulse Oximetry 98 Oxygen Delivery Me thod Nasal Cannula Oxygen Flow Rate 2 Fraction of Inspir ed Oxygen Hydration adequate: Yes Nausea and vomiting: No Pain level: controlled Mental status: Altered Additional Comments: patient had episode of hypotension and lethargy last night and found to have anemia and possible sepsis. Previously had normal BP post operatively. Receiv ed IVF and blood. No apparent anesthetic complications noted.
[2024-02-13 07:56] LABS: Glucose Point of Care 105 mg/dL (70-110)
[2024-02-13 08:00] LABS: Absolute Segmented Neutrophil 2.2 10/cmm (1.6-7.1); Band Neutrophils Absolute 3.7 10^3/cmm (0.0-1.2); Eosinophils 0 %; Lymphocytes 8 %; Monocytes Absolute 0.4 10^3/cmm (0.1-0.6); Segmented Neutrophils 21 %; Slide Review Slide Review Perform; Total Cells Counted 100 (0-100)
[2024-02-13 08:00] LABS: Troponin 5 2HR 13.23 ng/L (0-15)
[2024-02-13 08:01] LABS: Absolute Neutrophil 5.9 10^3/cmm (1.4-6.5); Anisocytosis 2+; Giant Platelets Trace; Hypochromasia 2+; Lymphocytes Absolute 1.2 10^3/cmm (1.2-3.4); Microcytosis 1+; Platelet Estimate Increased (Normal); Poikilocytosis 3+
[2024-02-13 08:02] LABS: Sickle Cells 1+
[2024-02-13 08:03] LABS: Acanthocytes 2+; Burr Cells 2+; Pathology Refferal Yes; Schistocytes 1+
[2024-02-13 08:14] LABS: Troponin 5 2HR Delta -7.77 ABS# (0-10)
--- NOTE | 2024-02-13 09:46 | CT_ITS ---
WS: [id number] CT HEAD TECHNIQUE: Noncontrast CT of the head obtained from the skullbase to the vertex. CLINICAL INFORMATION: Ams COMPARISON: CT head 01/27/2023 DLP: 1185.[address] scans at [facility] use at least one of these dose optimization techniques: automated e xposure control; mA and/or kV adjustment per patient size (includes targeted exams where dose is matc hed to clinical indication); or iterative reconstruction. FINDINGS: No evidence of intracranial hemorrhage or mass effect. Ventricular system and basal cisterns are ahuja nt. Moderate small vessel changes with moderate parenchymal volume loss. Tiny chronic lacunar infarct s in the LEFT greater than RIGHT basal ganglia. No extra-axial fluid collections. No evidence of mass or mass effect. Chronic infarct of the RIGHT frontoparietal junction is unchanged. Paranasal sinuses and mastoid air cells are well aerated. .Normal visualized soft tissues. CT/CT head wo con* [id number] IMPRESSION: 1. No evidence of intracranial hemorrhage or mass effect. 2. Moderate small vessel changes and moderate parenchymal volume loss. 3. Intracranial vascular calcification. 4. No acute intracranial findings.
[2024-02-13] MEDS: vancomycin 750 MG in sodium chloride 0.9% 250 ML 250 MG IV ×2 (10:10→21:10)
[2024-02-13] MEDS: pantoprazole 40 mg SDV IVP ×2 (10:13→17:10)
--- NOTE | 2024-02-13 10:47 | ECG_ITS ---
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 Measurements Intervals [place] Rate: 98 P: 45 KS: 186 QRS: -7 QRSD: 80 T: 41 QT: 358 QTc: 457 Interpretive Statements SINUS RHYTHM LOW QRS VOLTAGE IN PRECORDIAL LEADS [QRS DEFLECTION < 1.0 mV IN CHEST LEADS] Compared to ECG 02/13/2024 06:07:47 T-wave abnormality no longer present Electronically Signed On 02-13-2024 17:50:31 CDT by Lamberto Hampton M.D. [id number]
[2024-02-13] MEDS: albumin 25 G/100 ML BAG 60 G IV ×2 (10:53→17:11)
[2024-02-13 11:54] LABS: Iron 5 ug/dL (59-158); Percent Saturation 5.4 % (20-50); Total Iron Binding Capacity 92 mcg/dl; Unsaturated Iron Binding 87 ug/dL (112-347); Vitamin B12 943 pg/mL (232-1245)
[2024-02-13 12:41] LABS: Troponin 5 6HR 11.69 ng/L (0-15)
[2024-02-13 12:43] LABS: Troponin 5 6HR Delta -9.31 ng/L (0-12)
--- NOTE | 2024-02-13 13:46 | P.PN_ITS ---
Subjective 2 Subjective: Appreciate overnight events. The morning seen with family at bedside. Patient is laying comfortably in bed, awake and able to have conversation though very soft-spoken and hard of hearing. Tired appearing. Blood pressures have been better since today morning. Did not require Levophed. Overnight patient's blood pressures have remained between high 70s to 90 systolics. Urine output documented of around 1200 cc since admission overnight. Vitals/I&O/Wt Last Vital Signs Temp 97.8 F 02/13/24 07:35 Pulse 94 02/13/24 11:30 Resp 18 02/13/24 11:30 BP 121/80 02/13/24 11:30 Pulse Ox 97 02/13/24 11:30 O2 Del Method Nasal Cannula 02/13/24 09:41 O2 Flow Rate 2 02/13/24 09:41 02/12/24 02/13/24 02/13/24 22:59 06:59 14:59 Intake Total 1891 / 2891 2056.25 / 4947.25 883.541 / 883.541 Output Total 420 / 420 550 / 970 250 / 250 Balance 1471 / 2471 1506.25 / 3977.25 633.541 / 633.541 Weight last 48 hrs Weight 96 kg Weight 82.781 kg Weight 83.915 kg Physical Exam 2 Const: COMMON NORMALS: no acute distress GENERAL APPEARANCE: lethargic O RIENTATION/CONSCIOUSNESS: Yes awake, Yes oriented to person, Yes oriented to place, Yes oriented to time and Yes lethargic OTHER: Chronically sick and tired appearing Eye: COMMON NORMALS: Equal, round and reactive pupils present PUPIL: Yes Equal, round and reactive pupils present Resp: COMMON NORMALS: normal respiratory effort, No retractions, No use of accessory muscles and clear to auscultation bilaterally AUSCULTATION: clear to auscultation bilaterally Cardio: COMMON NORMALS: regular rate, regular rhythm, S1 normal heart sound present and S2 normal heart sound present RATE: regular rate RHYTHM: r egular rhythm HEART SOUNDS: S1 normal heart sound present and S2 normal heart sound present GI: COMMON NORMALS: Normal to inspection, nondistended, normoactive bowel sounds present and non-tender Extremity: COMMON NORMALS: no pedal edema Neuro: SENSORIUM/ORIENTATION: Yes oriented to person, Yes oriented to place, Yes oriented to time and Yes lethargic OTHER: Moving bilateral upper and lower extremities, can follow commands such as squeezing my fingers, wiggling his toes able to smile for me, but cannot follow any other complex neurologic testing as he is still under the effect of anesthetic, he has had a CVA on the right I cannot discern any weakness currently Urinary Catheter Management: Dougherty: Cath Placed During This Visit: yes Reason for Continuing Indwelling Catheter: Accurate Measurement of Urinary Output in Critically Ill Patients Urinary Catheter Date of Insertion: 02/12/24 Urinary Catheter Time of Insertion: 14:30 Data 02/13/24 05:40 02/13/24 05:40 Micro: Microbiology 02/12/24 14:36 Blood Culture - Preliminary Blood SPECIMEN COLLECTED 02/12/24 14:44 Blood Culture - Preliminary Blood SPECIMEN COLLECTED A&P Assessment and plan (1) Hypotension: Likely in setting of postanesthetic effect, acute blood loss anemia postoperatively and dehydration. Keep mean artery pressure 65. Levophed if needed. Patient has hypoalbuminemia. Continue with IV albumin every 8 hourly for 1 day. IV fluids with normal saline at 100 cc/h. Received monitor blood transfusion overnight. Target hemoglobin over 8. Will transfuse 1 more unit of PRBC. Hold off on antihypertensives for now. (2) Anemia: Postoperative anemia. Acute on chronic. Baseline hemoglobin seems to be 9.6- 10. Currently 8.1 today. Post monitor blood transfusion. Transfuse 1 more unit. Check iron panel, vitamin B12, folate along with reticulocyte counts. For now we will start on IV iron supplementation for overall 5 days. Hold off on medical prophylaxis for DVT. (3) Encounter for postoperative care: (4) SIRS (systemic inflammatory response syndrome): Most likely in setting of hypotension and anemia. Given postoperative status for now cannot rule out infectious cause. Follow-up blood culture. Continue with broad-spectrum antibiotics with IV vancomycin and Zosyn for now. If patient remains afebrile without leukocytosis for next 24 hours will plan to discontinue antibiotics. Check MRSA swab. (5) Elevated lactic acid level: Postoperative status. Resolved now. (6) Obstruction, colon: (7) Colonic mass: (8) Rectal mass: (9) Enlarged prostate: (10) Cerebrovascular accident: (11) S/P right hemicolectomy: Plan Encephalopathy: Most likely in postoperative status and secondary to hypotension. Chronically sick appearing. Does have history of CVA. D-dimer elevated on admission. Remains on room air. Check CT head to rule out stroke. ABG done last night ruled out hypercapnia. LFTs normal. Continue to monitor. Will plan for physical therapy evaluation within next 24 hours if remains hemodynamically stable. Repeat hemoglobin and CMP in afternoon. CODE STATUS: Discussed in detail with patient's son at bedside. Spouse will be the DPOA. As per the son patient in the past had refused any kind of treatment for the mass which is believed to be cancer in the past as well and would not want any life prolonging measures if needed. CODE STATUS changed to DNR/DNI. NPO. Advance as per surgical team. Protonix 40 mg IV twice daily will be sufficient for PUD prophylaxis SCDs for DVT prophylaxis Attestations 2 Medical Necessity Statement*: Requires further hospitalization for postoperative care in a patient with colonic mass post right extensive hemicolectomy, postoperative anemia and hypotension Diagnoses Hypotension I95.9 Anemia D64.9 Encounter for postoperative care Z48.89 SIRS (systemic inflammatory response syndrome) R65.10 Elevated lactic acid level R79.89 Obstruction, colon K56.609 Colonic mass K63.89 Rectal mass K62.89 Enlarged prostate N40.0 Cerebrovascular accident I63.9 S/P right hemicolectomy Z90.49
--- NOTE | 2024-02-13 14:05 | PM.PN ---
Subjective Subjective: Patient seen and examined. He is moved into the ICU overnight for hypotension and was bolused normal saline and transfused PRBCs. Blood pressure is currently stable without vasopressors Vitals/I&O/Wt Last Vital Signs Temp 97.8 F 02/13/24 07:35 Pulse 100 02/13/24 13:51 Resp 20 H 02/13/24 13:51 BP 121/80 02/13/24 11:30 Pulse Ox 98 02/13/24 13:51 O2 Del Method Nasal Cannula 02/13/24 13:51 O2 Flow Rate 1 02/13/24 13:51 02/12/24 02/13/24 02/13/24 22:59 06:59 14:59 Intake Total 1891 / 2891 2056.25 / 4947.25 1233.541 / 1233.541 Output Total 420 / 420 550 / 970 250 / 250 Balance 1471 / 2471 1506.25 / 3977.25 983.541 / 983.541 Weight last 48 hrs Weight 211 lb 10.3 oz Weight 182 lb 8 oz Weight 185 lb Physical Exam Narrative: General: No acute distress Abdomen: Soft, mildly distended, appropriately tender Dressings clean dry and intact Urinary Catheter Management: Dougherty: Cath Placed During This Visit: yes Reason for Continuing Indwelling Catheter: Accurate Measurement of Urinary Output in Critically Ill Patients Urinary Catheter Date of Insertion: 02/12/24 Urinary Catheter Time of Insertion: 14:30 Data 02/13/24 05:40 02/13/24 05:40 Micro: Microbiology 02/12/24 14:36 Blood Culture - Preliminary Blood SPECIMEN COLLECTED 02/12/24 14:44 Blood Culture - Preliminary Blood SPECIMEN COLLECTED A&P Assessment and plan (1) Colonic mass: (2) Obstruction, colon: (3) Rectal mass: (4) S/P right hemicolectomy: (5) Umbilical hernia: Plan Postoperative day #1 status post open extended right hemicolectomy and primary umbilical hernia repair Await return of bowel function ICU management per hospitalist Await return of bowel function Attestations Medical Necessity Statement*: Patient requires multiple nights in the hospital to recover after colectomy for obstructing colon cancer for bowel function to return Coding Level of Care Code Acute Code for [facility] Diagnoses Colonic mass K63.89 Obstruction, colon K56.609 Rectal mass K62.89 S/P right hemicolectomy Z90.49 Umbilical hernia K42.9
[2024-02-13 14:38] LABS: Ferritin 97 ng/mL (30-400)
[2024-02-13 14:54] LABS: Reticulocyte % 0.9 % (0.5-2.0)
[2024-02-13] MEDS: sodium chloride 0.9% 100 mL Bag 50 ML IV (14:59)
[2024-02-13 15:00] LABS: Basophils # 0.1 10^3/uL (0.0-0.1); Basophils % 0.4 %; Hematocrit 25.8 % (37-53); Lymphocytes # 0.7 10^3/uL (0.8-4.8); Lymphocytes % 4.5 %; Mean Corpuscular HGB Conc 30.2 g/dL (30-55); Mean Corpuscular Hemoglobin 18.8 pg (27-33); Mean Corpuscular Volume 62.2 fl (82-101); Mean Platelet Volume 8.7 fL (7.4-10.4); Monocytes # 0.8 10^3/uL (0.2-0.9); Neutrophils # 14.16 10^3/uL (1.8-7.7); Neutrophils % 89.2 %; Nucleated Red Blood Cells % 0 %; Platelet Count 437 10^3/cmm (157-399); Red Blood Count 4.15 10^6/uL (3.85-5.65); Red Cell Distribution Width 24.2 % (12.1-15.1); White Blood Count 15.87 10^3/uL (3.29-11.43)
[2024-02-13] MEDS: sodium chloride 0.9% 1,000 ML 50 ML IV (15:01)
[2024-02-13 15:16] LABS: Alanine Aminotransferase 11 U/L (0-41); Albumin Level 3.2 g/dL (3.5-5.2); Alkaline Phosphatase 74 U/L (40-130); Anion Gap 15.9 (5-19); Aspartate Amino Transferase 21 U/L (0-40); Blood Urea Nitrogen 25 mg/dL (8-23); Calcium 6.9 mg/dL (8.5-10.5); Carbon Dioxide 19 mmol/L (22-29); Chloride 109 mmol/L (98-107); Creatinine Clr Calc Pharmacy 67.8938; Globulin 2.3 g/dL (1.3-4.6); Glucose 105 mg/dL (65-115); Osmolality Calculated 297 mOsm/kg (285-295); Sodium 141 mmol/L (136-145); Total Bilirubin 0.7 mg/dL (0.15-1.2); Total Protein 5.5 g/dL (6.6-8.7)
[2024-02-13 15:25] LABS: Glucose Point of Care 101 mg/dL (70-110)
[2024-02-13 15:37] LABS: Slide Review Slide Review Perform
[2024-02-13 15:40] LABS: Potassium 2.9 mmol/L (3.5-5.1)
[2024-02-13] MEDS: potassium chloride premix 100 ML 25 MEQ IV ×2 (16:10→19:58)
[2024-02-13] MEDS: FUROsemide 10 mg/mL SDV 2mL 20 MG IVP (17:14)
--- NOTE | 2024-02-13 18:32 | PC.NURSE ---
Shift SUmmary: Mental status is improved. Upon start of shift, patient would withdraw from pain only. He is now alert, and seems to be oriented to person, place, time and situation. Speech is very hoarse so verbal responses are hard to understand. Patient cannot read or write which further limits communication. Taken to CT, results can be found in electronic chart. Potassium was low and was replaced. 20mg of lasix given and maintenance fluids stopped due to fluid overload concerns. Peripheral edema, wheezing, and an increase work of breathing. Symptoms have started resolving after lasix given and fluids stopped. Total urine output was 625mL, with most of the output coming after lasix was administered.
[2024-02-13 19:54] LABS: Glucose Point of Care 102 mg/dL (70-110)
[2024-02-13 21:41] LABS: Glucose Point of Care 111 mg/dL (70-110)
[2024-02-14] VITALS (94 sets, daily range): BP systolic 107–157; BP diastolic 62–111; PULSE 79–120; RESP 13–28; TEMP 36.3–37.1; O2SAT 75–100
--- NOTE | 2024-02-14 00:47 | XRR_ITS ---
PROCEDURE INFORMATION: Exam: XR Chest Exam date and time: 02/14/2024 1:09 AM Age: 88 years old Clinical indication: Device placement; Ng tube; Additional info: Ng placement TECHNIQUE: Imaging protocol: Radiologic exam of the chest. Views: 1 view. COMPARISON: CR XR chest 1V portable [id number] 02/12/2024 1:29 PM FINDINGS: Tubes, catheters and devices: NGT in place, tip at gastric body. Lungs: Hazy bibasilar opacities and small effusions mildly increased. Pleural spaces: No pneumothorax. Heart/Mediastinum: The heart is large. Diffuse vascular calcification. Bones/joints: Unremarkable. XR/XR chest 1V [id number] IMPRESSION: 1. NGT in place. 2. Progressive lung base opacities and small effusions.
[2024-02-14] MEDS: OLANZapine 10 mg VIAL 5 MG IM (00:58)
[2024-02-14] MEDS: water for injection-sterile 10 ML 999 ML (00:59)
--- NOTE | 2024-02-14 01:08 | PC.NURSE ---
Patient had been resting quietly, entered room and pt had removed 3 IV's, NG tube, and had disconnected marsh from drainage bag. Patient was confused, stated he had a dream he was riding his tractor. Was able to reorient, but became increasingly angry, agitated, and uncooperative. NG tube replaced and pt immediately began trying to pull it back out and was attempting to remove remaining IV. Contacted Dr. Parsons and made aware, new orders received for Zyprexa 5 mg IM x1, CXR to confirm placement of NG tube, and 1:1 sitter. Zyprexa administered, IV replaced to left forearm, and sitter present.
[2024-02-14] MEDS: albumin 25 G/100 ML BAG 60 G IV ×3 (01:38→17:29)
[2024-02-14 03:47] LABS: Glucose Point of Care 112 mg/dL (70-110)
[2024-02-14 05:11] LABS: Basophils # 0.1 10^3/uL (0.0-0.1); Basophils % 0.6 %; Eosinophils % 0.1 %; Hematocrit 29.6 % (37-53); Lymphocytes # 0.7 10^3/uL (0.8-4.8); Lymphocytes % 3.9 %; Mean Corpuscular HGB Conc 28.7 g/dL (30-55); Mean Corpuscular Hemoglobin 19.8 pg (27-33); Mean Platelet Volume 8.9 fL (7.4-10.4); Monocytes # 0.9 10^3/uL (0.2-0.9); Monocytes % 5.4 %; Neutrophils # 15.51 10^3/uL (1.8-7.7); Neutrophils % 89.5 %; Nucleated Red Blood Cells % 0 %; Platelet Count 409 10^3/cmm (157-399); Red Blood Count 4.29 10^6/uL (3.85-5.65); Red Cell Distribution Width 26.4 % (12.1-15.1); White Blood Count 17.32 10^3/uL (3.29-11.43)
[2024-02-14 05:32] LABS: Alanine Aminotransferase 12 U/L (0-41); Alkaline Phosphatase 76 U/L (40-130); Aspartate Amino Transferase 21 U/L (0-40); Blood Urea Nitrogen 22 mg/dL (8-23); Calcium 6.8 mg/dL (8.5-10.5); Carbon Dioxide 17 mmol/L (22-29); Chloride 113 mmol/L (98-107); Globulin 2.4 g/dL (1.3-4.6); Glucose 107 mg/dL (65-115); Osmolality Calculated 302 mOsm/kg (285-295); Sodium 144 mmol/L (136-145); Total Bilirubin 1.3 mg/dL (0.15-1.2); Total Protein 5.4 g/dL (6.6-8.7)
[2024-02-14 05:35] LABS: Anion Gap 17.9 (5-19); Potassium 3.9 mmol/L (3.5-5.1)
[2024-02-14 05:42] LABS: Slide Review Slide Review Perform
--- NOTE | 2024-02-14 07:08 | P.PN_ITS ---
Subjective 2 Subjective: Patient seen and examined. He is much more alert today. Pain controlled Vitals/I&O/Wt Last Vital Signs Temp 97.8 F 02/15/24 04:30 Pulse 89 02/15/24 04:30 Resp 20 H 02/15/24 04:30 BP 154/83 02/15/24 04:00 Pulse Ox 95 02/15/24 04:30 O2 Del Method Room Air 02/15/24 02:01 O2 Flow Rate 1 02/13/24 13:51 02/14/24 02/15/24 02/15/24 22:59 06:59 14:59 Intake Total 510 / 660 400 / 1060 Output Total 700 / 700 200 / 900 Balance -190 / -40 200 / 160 Weight last 48 hrs Weight 183 lb 6.793 oz Weight 188 lb 7.924 oz Physical Exam 2 Narrative: General: No acute distress, awake alert and oriented x 3 Abdomen: Soft, mildly distended, appropriately tender Incision intact without erythema or exudate Urinary Catheter Management: Dougherty: Cath Placed During This Visit: yes Reason for Continuing Indwelling Catheter: Accurate Measurement of Urinary Output in Critically Ill Patients Urinary Catheter Date of Insertion: 02/12/24 Urinary Catheter Time of Insertion: 14:30 Data 02/15/24 04:34 02/15/24 04:34 A&P Assessment and plan (1) Colonic mass: (2) Obstruction, colon: (3) Rectal mass: (4) S/P right hemicolectomy: (5) Umbilical hernia: Plan Postoperative day #2 status post open extended right hemicolectomy and primary umbilical hernia repair DC NG tube and start clear liquid diet Incentive spirometer Agree with transfer to floor when bed available Subcu heparin Attestations 2 Medical Necessity Statement*: Patient requires at least 1 more night in the hospital return of bowel function and recovery from exploratory laparotomy with extended right hemicolectomy for colon mass causing obstruction Coding Level of Care Code Acute Code for Chg Fwd Diagnoses Colonic mass K63.89 Obstruction, colon K56.609 Rectal mass K62.89 S/P right hemicolectomy Z90.49 Umbilical hernia K42.9
[2024-02-14] MEDS: piperacillin-tazobactam 3.375 GM in sodium chloride 0.9% (plus) 50 ML IV ×3 (07:34→23:35)
[2024-02-14 08:32] LABS: Vancomycin Trough 13.8 ug/mL (10-15)
[2024-02-14] MEDS: vancomycin 750 MG in sodium chloride 0.9% 250 ML 250 MG IV ×2 (09:25→22:07)
[2024-02-14] MEDS: pantoprazole 40 mg SDV IVP ×2 (09:26→17:27)
[2024-02-14] MEDS: iron sucrose 200 MG in sodium chloride 0.9% (100 ml) 100 ML 220 MG IV (10:32)
--- NOTE | 2024-02-14 14:39 | PC.SOCIAL ---
IMM Update pg 2 of IMM updated and reviewed w/ patients daughter. Copy provided and copy dated, initialed and placed in chart.
--- NOTE | 2024-02-14 15:22 | P.PN_ITS ---
Subjective 2 Subjective: No acute events overnight. Patient has remained hemodynamically stable and afebrile. A lot more awake and alert today. Able to have some conversation. Family at bedside. Patient did pull out NG tube last night which is replaced. Remains on room air. Documented urine output of 1300 cc in last 24 hours. Vitals/I&O/Wt Last Vital Signs Temp 97.7 F 02/14/24 05:00 Pulse 89 02/14/24 12:30 Resp 19 H 02/14/24 12:30 BP 131/73 02/14/24 12:30 Pulse Ox 95 02/14/24 11:30 O2 Del Method Room Air 02/14/24 08:44 O2 Flow Rate 1 02/13/24 13:51 02/14/24 02/14/24 02/14/24 06:59 14:59 22:59 Intake Total 500 / 2796.458 50 / 50 Output Total 650 / 1375 Balance -150 / 1421.458 50 / 50 Weight last 48 hrs Weight 85.5 kg Weight 96 kg Weight 82.781 kg Physical Exam 2 Const: COMMON NORMALS: no acute distress GENERAL APPEARANCE: lethargic O RIENTATION/CONSCIOUSNESS: Yes awake, Yes oriented to person, Yes oriented to place, Yes oriented to time and Yes lethargic OTHER: Chronically sick and tired appearing Eye: COMMON NORMALS: Equal, round and reactive pupils present PUPIL: Yes Equal, round and reactive pupils present Resp: COMMON NORMALS: normal respiratory effort, No retractions, No use of accessory muscles and clear to auscultation bilaterally AUSCULTATION: clear to auscultation bilaterally Cardio: COMMON NORMALS: regular rate, regular rhythm, S1 normal heart sound present and S2 normal heart sound present RATE: regular rate RHYTHM: r egular rhythm HEART SOUNDS: S1 normal heart sound present and S2 normal heart sound present GI: COMMON NORMALS: Normal to inspection, nondistended, normoactive bowel sounds present and non-tender Extremity: COMMON NORMALS: no pedal edema Neuro: SENSORIUM/ORIENTATION: Yes oriented to person, Yes oriented to place, Yes oriented to time and Yes lethargic OTHER: Moving bilateral upper and lower extremities, can follow commands such as squeezing my fingers, wiggling his toes able to smile for me, but cannot follow any other complex neurologic testing as he is still under the effect of anesthetic, he has had a CVA on the right I cannot discern any weakness currently Urinary Catheter Management: Dougherty: Cath Placed During This Visit: yes Reason for Continuing Indwelling Catheter: Accurate Measurement of Urinary Output in Critically Ill Patients Urinary Catheter Date of Insertion: 02/12/24 Urinary Catheter Time of Insertion: 14:30 Data 02/14/24 04:45 02/14/24 04:45 Micro: Microbiology 02/12/24 14:44 Blood Culture - Preliminary Blood NEGATIVE TO DATE 02/12/24 14:36 Blood Culture - Preliminary Blood NEGATIVE TO DATE A&P Assessment and plan (1) Hypotension: Blood pressures have maintained relatively over mean of 65. Patient's mentation is better. IV fluids stopped because patient was developing mild fluid overload. Hold off on IV fluids for now. Current with IV albumin for 1 more day. Will plan to discontinue tomorrow. Hold off on antihypertensive. Monitor hemoglobin daily. Hemoglobin for now stable over 8. Transfuse if hemoglobin drops below 8. (2) Anemia: Postoperative anemia. Acute on chronic. Baseline hemoglobin seems to be 9.6- 10. Post monitor blood transfusion. Hemoglobin stable at 8.5. Consistent with severe iron deficiency anemia. Start on IV iron supplementation. Hold off on medical prophylaxis for DVT. (3) Encounter for postoperative care: (4) SIRS (systemic inflammatory response syndrome): Most likely in setting of hypotension and anemia. Given postoperative status for now cannot rule out infectious cause. Follow-up blood culture. Continue with broad-spectrum antibiotics with IV vancomycin and Zosyn for now. Continues to have leukocytosis. Continue with IV antibiotics. If MRSA swab is negative can discontinue vancomycin. (5) Elevated lactic acid level: Postoperative status. Resolved now. (6) Obstruction, colon: (7) Colonic mass: (8) Rectal mass: (9) Enlarged prostate: (10) Cerebrovascular accident: (11) S/P right hemicolectomy: Plan Encephalopathy: Resolving. Most likely in postoperative status and secondary to hypotension. Chronically sick appearing. Does have history of CVA. CT head negative for acute abnormality. Out of bed to chair. PT and OT evaluation. Incentive spirometry. Patient is stable to be transferred to [facility] floor as per medical team. CODE STATUS: Discussed in detail with patient's son at bedside. Spouse will be the DPOA. As per the son patient in the past had refused any kind of treatment for the mass which is believed to be cancer in the past as well and would not want any life prolonging measures if needed. CODE STATUS changed to DNR/DNI. NPO. Advance as per surgical team. Protonix 40 mg IV twice daily will be sufficient for PUD prophylaxis SCDs for DVT prophylaxis Attestations 2 Medical Necessity Statement*: Requires further hospitalization for postoperative care in a patient with right hemicolectomy developed hypotension and anemia postoperatively while bowel functions are awaited. Diagnoses Hypotension I95.9 Anemia D64.9 Encounter for postoperative care Z48.89 SIRS (systemic inflammatory response syndrome) R65.10 Elevated lactic acid level R79.89 Obstruction, colon K56.609 Colonic mass K63.89 Rectal mass K62.89 Enlarged prostate N40.0 Cerebrovascular accident I63.9 S/P right hemicolectomy Z90.49
--- NOTE | 2024-02-14 18:15 | PC.NURSE ---
uneventful shft, walked with PT, sat in chair majority of day
--- NOTE | 2024-02-14 19:52 | PC.NURSE ---
NG tube not in place at shift change, reported to keep patient NPO.
[2024-02-14] MEDS: morphine 4 mg/mL SDV 1 mL 2 MG IVP (21:13)
[2024-02-14 21:42] LABS: Glucose Point of Care 97 mg/dL (70-110)
[2024-02-14 21:42] LABS: Glucose Point of Care 162 mg/dL (70-110)
[2024-02-15] VITALS (49 sets, daily range): BP systolic 114–197; BP diastolic 59–129; PULSE 65–115; RESP 5–24; TEMP 36.1–37.2; O2SAT 93–98
[2024-02-15] MEDS: ipratropium-albuterol 3 mL Neb INHALATION (02:01)
[2024-02-15] MEDS: morphine 4 mg/mL SDV 1 mL 2 MG IVP ×2 (02:08→18:36)
[2024-02-15] MEDS: albumin 25 G/100 ML BAG 60 G IV ×2 (02:09→09:50)
--- NOTE | 2024-02-15 04:35 | PC.NURSE ---
moves self frequently in bed. Sitter at bedside, having to redirect patient frequently.
[2024-02-15 04:41] LABS: Basophils # 0.1 10^3/uL (0.0-0.1); Basophils % 0.3 %; Eosinophils % 0.2 %; Hematocrit 27.9 % (37-53); Lymphocytes # 1.6 10^3/uL (0.8-4.8); Mean Corpuscular HGB Conc 30.5 g/dL (30-55); Mean Corpuscular Volume 65.8 fl (82-101); Mean Platelet Volume 8.8 fL (7.4-10.4); Monocytes # 1.1 10^3/uL (0.2-0.9); Monocytes % 4.2 %; Neutrophils # 22.96 10^3/uL (1.8-7.7); Neutrophils % 88.1 %; Nucleated Red Blood Cells % 0 %; Platelet Count 378 10^3/cmm (157-399); Red Blood Count 4.24 10^6/uL (3.85-5.65); Red Cell Distribution Width 27.1 % (12.1-15.1); White Blood Count 26.03 10^3/uL (3.29-11.43)
[2024-02-15 04:58] LABS: Alanine Aminotransferase 13 U/L (0-41); Albumin Level 3.1 g/dL (3.5-5.2); Alkaline Phosphatase 69 U/L (40-130); Anion Gap 14.3 (5-19); Aspartate Amino Transferase 19 U/L (0-40); Blood Urea Nitrogen 15 mg/dL (8-23); Calcium 7.3 mg/dL (8.5-10.5); Carbon Dioxide 21 mmol/L (22-29); Chloride 112 mmol/L (98-107); Globulin 2.4 g/dL (1.3-4.6); Glucose 88 mg/dL (65-115); Osmolality Calculated 298 mOsm/kg (285-295); Potassium 3.3 mmol/L (3.5-5.1); Sodium 144 mmol/L (136-145); Total Bilirubin 0.8 mg/dL (0.15-1.2); Total Protein 5.5 g/dL (6.6-8.7)
[2024-02-15] MEDS: piperacillin-tazobactam 3.375 GM in sodium chloride 0.9% (plus) 50 ML IV ×3 (06:01→22:37)
--- NOTE | 2024-02-15 09:00 | XR_ITS ---
WS: [id number] Portable AP upright chest, 02/15/2024 Clinical Data: dr. eaton Comparison: Portable chest, 02/14/2024 Findings: The bibasilar opacities have cleared significantly. There is a small residual over the surf stephanie of the left diaphragm. The heart is slightly enlarged. No nodules or masses are seen. The pulmon oriana vascularity is not increased. No pneumothorax is seen. The aortic arch and descending thoracic a cristina show tortuosity and calcification. There are monitor leads on the chest wall. There is osteoarth ritis of both shoulders. XR/XR chest 1V portable [id number] Impression: 1. Significant clearing of bilateral basilar opacities. 2. Atherosclerosis and cardiomegaly.
--- NOTE | 2024-02-15 09:30 | P.PN_ITS ---
Subjective 2 Subjective: Patient seen and examined. Passing flatus Vitals/I&O/Wt Last Vital Signs Temp 97 F L 02/17/24 08:06 Pulse 82 02/17/24 08:06 Resp 22 H 02/17/24 08:29 BP 162/88 02/17/24 08:06 Pulse Ox 96 02/17/24 08:06 O2 Del Method Room Air 02/17/24 08:06 O2 Flow Rate 2 02/16/24 02:00 02/16/24 02/17/24 02/17/24 22:59 06:59 14:59 Intake Total 1125 / 1175 1170 / 2345 120 / 120 Balance 1125 / 1175 1170 / 2345 120 / 120 Weight last 48 hrs Weight 186 lb 3 oz Weight 187 lb 6.287 oz Physical Exam 2 Narrative: General: No acute distress, oriented only to person Abdomen: Soft, appropriately tender, mildly distended Incision clean dry and intact without erythema or exudate Urinary Catheter Management: Dougherty: Cath Placed During This Visit: yes, but has since been removed by the nurse Reason for Continuing Indwelling Catheter: Accurate Measurement of Urinary Output in Critically Ill Patients Urinary Catheter Date of Insertion: 02/12/24 Urinary Catheter Time of Insertion: 14:30 Date Urinary Catheter Removed: 02/16/24 Time Urinary Catheter Discontinued: 17:00 Data 02/17/24 06:25 02/17/24 06:25 A&P Assessment and plan (1) Colonic mass: (2) Obstruction, colon: (3) Rectal mass: (4) S/P right hemicolectomy: (5) Umbilical hernia: Plan Postoperative day #3 status post open extended right hemicolectomy and primary umbilical hernia repair clear liquid diet Incentive spirometer Chest x-ray Hold in ICU as white blood cell count has gone up Appreciate hospitalist recommendations Subcu heparin Attestations 2 Medical Necessity Statement*: Patient requires multiple nights in the hospital for recovery after exploratory laparotomy for transverse colon mass causing obstruction Coding Level of Care Code Acute Code for Chg Fwd Diagnoses Colonic mass K63.89 Obstruction, colon K56.609 Rectal mass K62.89 S/P right hemicolectomy Z90.49 Umbilical hernia K42.9
[2024-02-15] MEDS: pantoprazole 40 mg SDV IVP ×2 (09:49→16:31)
[2024-02-15] MEDS: vancomycin 750 MG in sodium chloride 0.9% 250 ML 250 MG IV ×2 (09:50→21:08)
[2024-02-15] MEDS: iron sucrose 200 MG in sodium chloride 0.9% (100 ml) 100 ML 220 MG IV (09:53)
--- NOTE | 2024-02-15 10:01 | XR_ITS ---
WS: [id number] KUB, AP supine portable, 02/15/2024 Clinical Data: Post op, Comparison: None. Findings: No abnormal intraabdominal masses or calcifications are seen. There is air in the stomach, small smita l and colon. The left-sided small bowel loops show localized moderate dilatation. Midline surgical sutures tera and right paramedian surgical tera are present. There is degenerative change of the lower thoraci c and all the lumbar vertebral bodies. XR/XR abdomen 1V* [id number] Impression: 1. Generalized ileus with moderate dilatation of left small bowel loops. 2. Degenerative change of the lower thoracic and all the lumbar vertebral nazario s.
[2024-02-15] MEDS: lidocaine 1% 5 ML in potassium chloride premix 100 ML 26.25 ML IV (10:33)
[2024-02-15 13:31] LABS: Methicillin-Resist S.aureu PCR NOT DETECTED (NOT DETECTED)
--- NOTE | 2024-02-15 14:32 | P.PN_ITS ---
Subjective 2 Subjective: No acute events overnight. Patient today morning seen sitting up in the chair. NG tube was removed yesterday. Overnight patient has had smear of bowel movement. Started on clear liquid diet as per surgical team. Has remained hemodynamically stable and afebrile on room air. Vitals/I&O/Wt Last Vital Signs Temp 97.8 F 02/15/24 04:30 Pulse 73 02/15/24 09:00 Resp 17 02/15/24 09:00 BP 152/70 02/15/24 09:30 Pulse Ox 95 02/15/24 09:30 O2 Del Method Room Air 02/15/24 08:39 O2 Flow Rate 1 02/13/24 13:51 02/14/24 02/15/24 02/15/24 22:59 06:59 14:59 Intake Total 510 / 660 400 / 1060 200 / 200 Output Total 700 / 700 200 / 900 Balance -190 / -40 200 / 160 200 / 200 Weight last 48 hrs Weight 83.2 kg Weight 85.5 kg Physical Exam 2 Const: COMMON NORMALS: no acute distress GENERAL APPEARANCE: lethargic O RIENTATION/CONSCIOUSNESS: Yes awake, Yes oriented to person, Yes oriented to place, Yes oriented to time and Yes lethargic OTHER: Chronically sick and tired appearing Eye: COMMON NORMALS: Equal, round and reactive pupils present PUPIL: Yes Equal, round and reactive pupils present Resp: COMMON NORMALS: normal respiratory effort, No retractions, No use of accessory muscles and clear to auscultation bilaterally AUSCULTATION: clear to auscultation bilaterally Cardio: COMMON NORMALS: regular rate, regular rhythm, S1 normal heart sound present and S2 normal heart sound present RATE: regular rate RHYTHM: r egular rhythm HEART SOUNDS: S1 normal heart sound present and S2 normal heart sound present GI: COMMON NORMALS: Normal to inspection, nondistended, normoactive bowel sounds present and non-tender Extremity: COMMON NORMALS: no pedal edema Neuro: SENSORIUM/ORIENTATION: Yes oriented to person, Yes oriented to place, Yes oriented to time and Yes lethargic OTHER: Moving bilateral upper and lower extremities, can follow commands such as squeezing my fingers, wiggling his toes able to smile for me, but cannot follow any other complex neurologic testing as he is still under the effect of anesthetic, he has had a CVA on the right I cannot discern any weakness currently Urinary Catheter Management: Dougherty: Cath Placed During This Visit: yes Reason for Continuing Indwelling Catheter: Accurate Measurement of Urinary Output in Critically Ill Patients Urinary Catheter Date of Insertion: 02/12/24 Urinary Catheter Time of Insertion: 14:30 Data 02/15/24 04:34 02/15/24 04:34 A&P Assessment and plan (1) Hypotension: Has resolved. Patient is on room air. Not on IV fluids. Goal blood pressure less than 140/90 mmHg with mean over 65. If blood pressures remain elevated in next 24 hours will start on low-dose amlodipine. Patient takes losartan hydrochlorothiazide at home which we will try to avoid for now given perioperative status. (2) Anemia: Postoperative anemia. Acute on chronic. Baseline hemoglobin seems to be 9.6- 10. Post 1 unit of blood transfusion. Hemoglobin stable at 8.5. Continue with IV iron supplementation for overall 5 days with last dose on 02/17 to finish a 1 g dose. Restart heparin 5000 every 8 hourly. Confirmed with surgical team. (3) Encounter for postoperative care: (4) SIRS (systemic inflammatory response syndrome): Patient continues to have persistent leukocytosis. He is on room air. Has remained afebrile. Check chest x-ray, portable abdominal x-ray. Continue with empiric IV antibiotics with Zosyn and vancomycin. MRSA swab negative. If remains afebrile for next 24 hours will discontinue vancomycin. Leukocytosis could be reactionary in setting of perioperative status. Will continue to monitor daily. (5) Elevated lactic acid level: Postoperative status. Resolved now. (6) Obstruction, colon: (7) Colonic mass: (8) Rectal mass: (9) Enlarged prostate: (10) Cerebrovascular accident: (11) S/P right hemicolectomy: Plan Encephalopathy: Resolving. Most likely in postoperative status and secondary to hypotension. Chronically sick appearing. Does have history of CVA. CT head negative for acute abnormality. Out of bed to chair. PT and OT evaluation. Incentive spirometry. Patient is stable to be transferred to [facility] floor as per medical team. CODE STATUS: Discussed in detail with patient's son at bedside. Spouse will be the DPOA. As per the son patient in the past had refused any kind of treatment for the mass which is believed to be cancer in the past as well and would not want any life prolonging measures if needed. CODE STATUS changed to DNR/DNI. Clear liquid diet advance as per surgical team. Protonix 40 mg IV twice daily will be sufficient for PUD prophylaxis SCDs for DVT prophylaxis Attestations 2 Medical Necessity Statement*: Requires further hospitalization for postoperative care in a patient with hemicolectomy for colonic mass, postoperative anemia and hypotension while further evaluation of leukocytosis Diagnoses Hypotension I95.9 Anemia D64.9 Encounter for postoperative care Z48.89 SIRS (systemic inflammatory response syndrome) R65.10 Elevated lactic acid level R79.89 Obstruction, colon K56.609 Colonic mass K63.89 Rectal mass K62.89 Enlarged prostate N40.0 Cerebrovascular accident I63.9 S/P right hemicolectomy Z90.49
[2024-02-15] MEDS: heparin 5,000 unit/mL INJ 1 mL 5000 UNIT SUBCUT ×2 (15:12→21:10)
[2024-02-15] MEDS: quetiapine 25 mg Tablet PO (20:14)
[2024-02-15 22:47] LABS: Glucose Point of Care 77 mg/dL (70-110)
[2024-02-15 23:55] LABS: Glucose Point of Care 82 mg/dL (70-110)
[2024-02-16] VITALS (35 sets, daily range): BP systolic 97–175; BP diastolic 51–100; PULSE 62–104; RESP 15–22; TEMP 36.1–36.7; O2SAT 93–97; BMI 30.2
--- NOTE | 2024-02-16 01:05 | PC.NURSE ---
Output: Patient's urine output had decreased through the shift with 150mL out, Dr. Parsons notified.
[2024-02-16 03:22] LABS: Glucose Point of Care 77 mg/dL (70-110)
[2024-02-16] MEDS: morphine 4 mg/mL SDV 1 mL 2 MG IVP (04:10)
[2024-02-16 05:04] LABS: Basophils # 0.1 10^3/uL (0.0-0.1); Basophils % 0.4 %; Eosinophils # 0.5 10^3/uL (0.0-0.8); Eosinophils % 2.8 %; Hematocrit 31.1 % (37-53); Lymphocytes # 2.4 10^3/uL (0.8-4.8); Mean Corpuscular HGB Conc 30.5 g/dL (30-55); Mean Corpuscular Hemoglobin 20.3 pg (27-33); Mean Corpuscular Volume 66.5 fl (82-101); Mean Platelet Volume 8.7 fL (7.4-10.4); Monocytes # 1.2 10^3/uL (0.2-0.9); Monocytes % 7.1 %; Neutrophils # 11.78 10^3/uL (1.8-7.7); Neutrophils % 72.1 %; Nucleated Red Blood Cells % 0 %; Platelet Count 343 10^3/cmm (157-399); Red Blood Count 4.68 10^6/uL (3.85-5.65); Red Cell Distribution Width 28.5 % (12.1-15.1); White Blood Count 16.31 10^3/uL (3.29-11.43)
[2024-02-16 05:23] LABS: Alanine Aminotransferase 15 U/L (0-41); Albumin Level 3.4 g/dL (3.5-5.2); Alkaline Phosphatase 116 U/L (40-130); Anion Gap 15.4 (5-19); Aspartate Amino Transferase 19 U/L (0-40); Blood Urea Nitrogen 13 mg/dL (8-23); Calcium 7.7 mg/dL (8.5-10.5); Carbon Dioxide 24 mmol/L (22-29); Chloride 114 mmol/L (98-107); Globulin 2.3 g/dL (1.3-4.6); Glucose 73 mg/dL (65-115); Osmolality Calculated 309 mOsm/kg (285-295); Potassium 3.4 mmol/L (3.5-5.1); Sodium 150 mmol/L (136-145); Total Bilirubin 0.6 mg/dL (0.15-1.2); Total Protein 5.7 g/dL (6.6-8.7)
[2024-02-16 05:36] LABS: Creatinine Clr Calc Pharmacy 63.3604
[2024-02-16] MEDS: piperacillin-tazobactam 3.375 GM in sodium chloride 0.9% (plus) 50 ML IV ×3 (06:09→22:34)
[2024-02-16] MEDS: heparin 5,000 unit/mL INJ 1 mL 5000 UNIT SUBCUT ×3 (06:10→21:16)
[2024-02-16 09:20] LABS: Vancomycin Trough 10.9 ug/mL (10-15)
[2024-02-16] MEDS: vancomycin 750 MG in sodium chloride 0.9% 250 ML 250 MG IV ×2 (09:21→21:12)
[2024-02-16] MEDS: pantoprazole 40 mg SDV IVP ×2 (09:21→17:04)
--- NOTE | 2024-02-16 09:32 | P.PN_ITS ---
Subjective 2 Subjective: Patient seen and examined. Positive BM and flatus. Pain controlled Vitals/I&O/Wt Last Vital Signs Temp 97 F L 02/17/24 08:06 Pulse 82 02/17/24 08:06 Resp 22 H 02/17/24 08:29 BP 162/88 02/17/24 08:06 Pulse Ox 96 02/17/24 08:06 O2 Del Method Room Air 02/17/24 08:06 O2 Flow Rate 2 02/16/24 02:00 02/16/24 02/17/24 02/17/24 22:59 06:59 14:59 Intake Total 1125 / 1175 1170 / 2345 120 / 120 Balance 1125 / 1175 1170 / 2345 120 / 120 Weight last 48 hrs Weight 186 lb 3 oz Weight 187 lb 6.287 oz Physical Exam 2 Narrative: General: No acute distress, oriented only to person Abdomen: Soft, appropriately tender, mildly distended Incision clean dry and intact without erythema or exudate Urinary Catheter Management: Dougherty: Cath Placed During This Visit: yes, but has since been removed by the nurse Reason for Continuing Indwelling Catheter: Accurate Measurement of Urinary Output in Critically Ill Patients Urinary Catheter Date of Insertion: 02/12/24 Urinary Catheter Time of Insertion: 14:30 Date Urinary Catheter Removed: 02/16/24 Time Urinary Catheter Discontinued: 17:00 Data 02/17/24 06:25 02/17/24 06:25 A&P Assessment and plan (1) Colonic mass: (2) Obstruction, colon: (3) Rectal mass: (4) S/P right hemicolectomy: (5) Umbilical hernia: Plan Postoperative day #4 status post open extended right hemicolectomy and primary umbilical hernia repair IV antibiotics regular diet Incentive spirometer Transfer to medical surgical floor PT Plans for discharge to SNF likely Monday if went well except Appreciate hospitalist recommendations Subcu heparin Attestations 2 Medical Necessity Statement*: Patient requires multiple nights in the hospital for recovery after exploratory laparotomy for transverse colon mass causing obstruction Coding Level of Care Code Acute Code for Chg Fwd Diagnoses Colonic mass K63.89 Obstruction, colon K56.609 Rectal mass K62.89 S/P right hemicolectomy Z90.49 Umbilical hernia K42.9
[2024-02-16] MEDS: lidocaine 1% 5 ML in potassium chloride premix 100 ML 26.25 ML IV (09:48)
[2024-02-16] MEDS: dextrose 5%-sod chloride 0.9% 1,000 ML 75 ML IV (09:50)
[2024-02-16] MEDS: ipratropium-albuterol 3 mL Neb INHALATION (10:06)
[2024-02-16] MEDS: iron sucrose 200 MG in sodium chloride 0.9% (100 ml) 100 ML 220 MG IV (10:08)
--- NOTE | 2024-02-16 13:37 | PM.PN ---
Subjective Subjective: No acute events overnight. Patient slept well overnight after Seroquel. Today morning he is a little more clear Thought process. Denies any nausea, pain, headache. Has remained hemodynamically stable afebrile on room air. Transition to regular diet by surgical team. 1 bowel movement overnight Vitals/I&O/Wt Last Vital Signs Temp 97.0 F L 02/16/24 03:23 Pulse 75 02/16/24 12:30 Resp 16 02/16/24 12:30 BP 138/77 02/16/24 12:30 Pulse Ox 96 02/16/24 10:06 O2 Del Method Room Air 02/16/24 10:06 O2 Flow Rate 2 02/16/24 02:00 02/15/24 02/16/24 02/16/24 22:59 06:59 14:59 Intake Total 50 / 660 300 / 960 Output Total 300 / 300 250 / 550 Balance -250 / 360 50 / 410 Weight last 48 hrs Weight 85 kg Weight 83.2 kg Physical Exam Const: COMMON NORMALS: no acute distress GENERAL APPEARANCE: cooperative, comfortable and frail appearing ORIENTATION/CONSCIOUSNESS: Yes awake, Yes oriented to person, Yes oriented to place and Yes oriented to time OTHER: Chronically sick and tired appearing Eye: COMMON NORMALS: Equal, round and reactive pupils present PUPIL: Yes Equal, round and reactive pupils present Resp: COMMON NORMALS: normal respiratory effort, No retractions, No use of accessory muscles and clear to auscultation bilaterally AUSCULTATION: clear to auscultation bilaterally Cardio: COMMON NORMALS: regular rate, regular rhythm, S1 normal heart sound present and S2 normal heart sound present RATE: regular rate RHYTHM: regular rhythm HEART SOUNDS: S1 normal heart sound present and S2 normal heart sound present GI: COMMON NORMALS: Normal to inspection, nondistended, normoactive bowel sounds present and non-tender Extremity: COMMON NORMALS: no pedal edema Neuro: SENSORIUM/ORIENTATION: Yes oriented to person, Yes oriented to place and Yes oriented to time OTHER: Moving bilateral upper and lower extremities, can follow commands such as squeezing my fingers, wiggling his toes able to smile for me, but cannot follow any other complex neurologic testing as he is still under the effect of anesthetic, he has had a CVA on the right I cannot discern any weakness currently Urinary Catheter Management: Dougherty: Cath Placed During This Visit: yes Reason for Continuing Indwelling Catheter: Accurate Measurement of Urinary Output in Critically Ill Patients Urinary Catheter Date of Insertion: 02/12/24 Urinary Catheter Time of Insertion: 14:30 Data 02/16/24 04:30 02/16/24 04:30 A&P Assessment and plan (1) Hypotension: Has resolved. Patient is on room air. Not on IV fluids. Goal blood pressure less than 140/90 mmHg with mean over 65. If blood pressures remain elevated in next 24 hours will start on low-dose amlodipine. Patient takes losartan hydrochlorothiazide at home which we will try to avoid for now given perioperative status. (2) Anemia: Postoperative anemia. Acute on chronic. Baseline hemoglobin seems to be 9.6-10. Post 1 unit of blood transfusion. Hemoglobin stable at 8.5. Continue with IV iron supplementation for overall 5 days with last dose on 02/17 to finish a 1 g dose. Restart heparin 5000 every 8 hourly. Confirmed with surgical team. (3) Encounter for postoperative care: (4) SIRS (systemic inflammatory response syndrome): Patient continues to have persistent leukocytosis. He is on room air. Has remained afebrile. Check chest x-ray, portable abdominal x-ray. Continue with empiric IV antibiotics with Zosyn and vancomycin. MRSA swab negative. If remains afebrile for next 24 hours will discontinue vancomycin. Leukocytosis could be reactionary in setting of perioperative status. Will continue to monitor daily. (5) Elevated lactic acid level: Postoperative status. Resolved now. (6) Obstruction, colon: (7) Colonic mass: (8) Rectal mass: (9) Enlarged prostate: (10) Cerebrovascular accident: (11) S/P right hemicolectomy: Plan Encephalopathy: Resolving. Most likely in postoperative status and secondary to hypotension. Chronically sick appearing. Does have history of CVA. CT head negative for acute abnormality. Out of bed to chair. PT and OT evaluation. Incentive spirometry. Plan for the day: Leukocytosis is resolving. Hemoglobin has been stable. Continue with current IV antibiotics for now. Appreciate chest x-ray and abdominal x-ray done yesterday. Less concerns for pneumonia. MRSA swab negative. Can discontinue vancomycin. Developing mild hypernatremia today most likely in setting of poor oral intake. Switch fluid to D5 NS at 75 cc/h. Repeat BMP in afternoon. Continue with Seroquel 25 mg nightly. Discharge plan: PT evaluation recommends patient to be transition to SNF. Have alerted case management to speak with patient and patient's family before arranging. Transfer to [facility] floor. CODE STATUS: Discussed in detail with patient's son at bedside. Spouse will be the DPOA. As per the son patient in the past had refused any kind of treatment for the mass which is believed to be cancer in the past as well and would not want any life prolonging measures if needed. CODE STATUS changed to DNR/DNI. Clear liquid diet advance as per surgical team. Protonix 40 mg IV twice daily will be sufficient for PUD prophylaxis SCDs for DVT prophylaxis Attestations Medical Necessity Statement*: Requires further hospitalization for postoperative care and the patient was admitted for right hemicolectomy for intestinal obstruction secondary to rectal mass complicated by postoperative hypotension and anemia requiring blood transfusion, hypernatremia Diagnoses Hypotension I95.9 Anemia D64.9 Encounter for postoperative care Z48.89 SIRS (systemic inflammatory response syndrome) R65.10 Elevated lactic acid level R79.89 Obstruction, colon K56.609 Colonic mass K63.89 Rectal mass K62.89 Enlarged prostate N40.0 Cerebrovascular accident I63.9 S/P right hemicolectomy Z90.49
--- NOTE | 2024-02-16 14:22 | PC.SOCIAL ---
IMM Update Unable to update patients IMM w/ patients son as he does not have voice mail and patients cannot hear on the phone call. Copy left @ bedside and copy dated, initialed and placed in chart.
[2024-02-16 16:45] LABS: Glucose Point of Care 103 mg/dL (70-110)
[2024-02-16] MEDS: quetiapine 25 mg Tablet PO (21:12)
[2024-02-16 21:18] LABS: Glucose Point of Care 173 mg/dL (70-110)
[2024-02-17] VITALS (12 sets, daily range): BP systolic 152–183; BP diastolic 76–94; PULSE 82–99; RESP 17–22; TEMP 36.1–36.8; O2SAT 93–99
[2024-02-17] MEDS: dextrose 5%-sod chloride 0.9% 1,000 ML 75 ML IV
[2024-02-17] MEDS: heparin 5,000 unit/mL INJ 1 mL 5000 UNIT SUBCUT ×3 (06:12→21:02)
[2024-02-17] MEDS: piperacillin-tazobactam 3.375 GM in sodium chloride 0.9% (plus) 50 ML IV ×3 (06:12→22:27)
[2024-02-17 06:33] LABS: Hematocrit 29.8 % (37-53); Mean Corpuscular HGB Conc 30.5 g/dL (30-55); Mean Corpuscular Hemoglobin 20.1 pg (27-33); Mean Corpuscular Volume 65.8 fl (82-101); Mean Platelet Volume 8.5 fL (7.4-10.4); Platelet Count 336 10^3/cmm (157-399); Red Blood Count 4.53 10^6/uL (3.85-5.65); Red Cell Distribution Width 29.2 % (12.1-15.1); White Blood Count 11.73 10^3/uL (3.29-11.43)
[2024-02-17 07:00] LABS: Alanine Aminotransferase 12 U/L (0-41); Albumin Level 2.9 g/dL (3.5-5.2); Alkaline Phosphatase 63 U/L (40-130); Anion Gap 10.9 (5-19); Aspartate Amino Transferase 15 U/L (0-40); Blood Urea Nitrogen 10 mg/dL (8-23); Carbon Dioxide 23 mmol/L (22-29); Chloride 117 mmol/L (98-107); Globulin 2.1 g/dL (1.3-4.6); Glucose 130 mg/dL (65-115); Osmolality Calculated 307 mOsm/kg (285-295); Sodium 148 mmol/L (136-145); Total Bilirubin 0.5 mg/dL (0.15-1.2)
[2024-02-17 07:01] LABS: Glucose Point of Care 144 mg/dL (70-110)
[2024-02-17 07:21] LABS: Slide Review Slide Review Perform
[2024-02-17 07:24] LABS: Absolute Eosinophils 0.5 10^3/cmm (0.0-0.7); Absolute Segmented Neutrophil 8.9 10/cmm (1.6-7.1); Anisocytosis 1+; Band Neutrophils Absolute 0.4 10^3/cmm (0.0-1.2); Eosinophils 4 %; Lymphocytes 12 %; Lymphocytes Absolute 1.4 10^3/cmm (1.2-3.4); Monocytes Absolute 0.1 10^3/cmm (0.1-0.6); Poikilocytosis 2+; Segmented Neutrophils 76 %; Total Cells Counted 100 (0-100)
[2024-02-17 07:25] LABS: Absolute Neutrophil 9.3 10^3/cmm (1.4-6.5); Acanthocytes 1+; Giant Platelets Trace; Platelet Estimate Normal (Normal)
[2024-02-17 07:36] LABS: Creatinine Clr Calc Pharmacy 63.8042; Potassium 2.9 mmol/L (3.5-5.1)
[2024-02-17] MEDS: potassium chloride ER 20 mEq Tablet 80 MEQ PO ×2 (08:25→10:23)
[2024-02-17] MEDS: morphine 4 mg/mL SDV 1 mL 2 MG IVP (08:29)
[2024-02-17] MEDS: pantoprazole 40 mg SDV IVP ×2 (08:35→17:08)
--- NOTE | 2024-02-17 08:56 | XRR_ITS ---
PROCEDURE INFORMATION: Exam: XR Chest Exam date and time: 02/17/2024 9:07 AM Age: 88 years old Clinical indication: Dyspnea; Additional info: Crackles in lungs TECHNIQUE: Imaging protocol: Radiologic exam of the chest. Views: 1 view. COMPARISON: CR XR chest 1V portable [id number] 02/15/2024 10:09 AM FINDINGS: Lungs: There is left basilar/retrocardiac opacity that appears similar to prior. Probable subsegmental atelectasis at the right base. Pleural spaces: No definite pleural effusion. No pneumothorax. Heart/Mediastinum: The cardiac silhouette is unchanged. No gross evidence of pneumomediastinum. Bones/joints: No gross fracture. Sclerotic focus in the proximal left humerus. XR/XR chest 1V portable [id number] IMPRESSION: 1. Left basilar/retrocardiac opacity that appears similar to prior. 2. Sclerotic focus in the proximal left humerus could represent a metastatic lesion. Consider CT of the left shoulder.
--- NOTE | 2024-02-17 09:36 | P.PN_ITS ---
Subjective 2 Subjective: Patient seen and examined. Now on medical surgical floor. Tolerating regular diet but with poor appetite. Positive BM/flatus Vitals/I&O/Wt Last Vital Signs Temp 97 F L 02/17/24 08:06 Pulse 82 02/17/24 08:06 Resp 22 H 02/17/24 08:29 BP 162/88 02/17/24 08:06 Pulse Ox 96 02/17/24 08:06 O2 Del Method Room Air 02/17/24 08:06 O2 Flow Rate 2 02/16/24 02:00 02/16/24 02/17/24 02/17/24 22:59 06:59 14:59 Intake Total 1125 / 1175 1170 / 2345 120 / 120 Balance 1125 / 1175 1170 / 2345 120 / 120 Weight last 48 hrs Weight 186 lb 3 oz Weight 187 lb 6.287 oz Physical Exam 2 Narrative: General: No acute distress, oriented only to person Abdomen: Soft, appropriately tender, mildly distended Incision clean dry and intact without erythema or exudate Data 02/17/24 06:25 02/17/24 06:25 A&P Assessment and plan (1) Colonic mass: (2) Obstruction, colon: (3) Rectal mass: (4) S/P right hemicolectomy: (5) Umbilical hernia: Plan Postoperative day #5 status post open extended right hemicolectomy and primary umbilical hernia repair IV antibiotics DC IV fluids regular diet Incentive spirometer PT Out of bed to chair is much as possible, ambulate Plans for discharge to SNF likely Monday if went well except Appreciate hospitalist recommendations Subcu heparin Restart home antihypertensives and aspirin Attestations 2 Medical Necessity Statement*: Patient requires multiple nights in the hospital for recovery after exploratory laparotomy for transverse colon mass causing obstruction Coding Level of Care Code Acute Code for Chg Fwd Diagnoses Colonic mass K63.89 Obstruction, colon K56.609 Rectal mass K62.89 S/P right hemicolectomy Z90.49 Umbilical hernia K42.9
[2024-02-17 10:18] LABS: C.Diff PCR (Lab) NEGATIVE (Negative)
[2024-02-17] MEDS: aspirin 325 mg Tablet PO (10:23)
[2024-02-17] MEDS: losartan 50 mg Tablet 25 MG PO (10:23)
[2024-02-17] MEDS: FUROsemide 10 mg/mL SDV 2mL 20 MG IVP (10:24)
[2024-02-17] MEDS: dextrose 5%-sod chloride 0.45% 1,000 ML 50 ML IV (10:31)
[2024-02-17] MEDS: iron sucrose 200 MG in sodium chloride 0.9% (100 ml) 100 ML 220 MG IV (10:31)
[2024-02-17 11:17] LABS: NT Pro B Type Natriuretic Pept 2515 pg/mL (0-450)
[2024-02-17 11:41] LABS: Glucose Point of Care 122 mg/dL (70-110)
--- NOTE | 2024-02-17 11:48 | P.PN_ITS ---
Subjective 2 Subjective: No acute events overnight. Patient has remained hemodynamically stable and afebrile. He continues to saturate well on room air. As per nursing staff patient has been sleeping more since getting Seroquel. Seems to be at his baseline mentation. Vitals/I&O/Wt Last Vital Signs Temp 97.5 F L 02/17/24 11:45 Pulse 90 02/17/24 11:45 Resp 18 02/17/24 11:45 BP 183/94 02/17/24 11:45 Pulse Ox 96 02/17/24 11:45 O2 Del Method Room Air 02/17/24 11:45 O2 Flow Rate 2 02/16/24 02:00 02/16/24 02/17/24 02/17/24 22:59 06:59 14:59 Intake Total 1125 / 1175 1170 / 2345 1037.5 / 1037.5 Balance 1125 / 1175 1170 / 2345 1037.5 / 1037.5 Weight last 48 hrs Weight 84.453 kg Weight 85 kg Physical Exam 2 Const: COMMON NORMALS: no acute distress GENERAL APPEARANCE: cooperative, comfortable and frail appearing ORIENTATION/CONSCIOUSNESS: Yes awake, Yes oriented to person, Yes oriented to place and Yes oriented to time OTHER: Chronically sick and tired appearing Eye: COMMON NORMALS: Equal, round and reactive pupils present PUPIL: Yes Equal, round and reactive pupils present Resp: COMMON NORMALS: normal respiratory effort, No retractions, No use of accessory muscles and clear to auscultation bilaterally AUSCULTATION: clear to auscultation bilaterally Cardio: COMMON NORMALS: regular rate, regular rhythm, S1 normal heart sound present and S2 normal heart sound present RATE: regular rate RHYTHM: r egular rhythm HEART SOUNDS: S1 normal heart sound present and S2 normal heart sound present GI: COMMON NORMALS: Normal to inspection, nondistended, normoactive bowel sounds present and non-tender Extremity: COMMON NORMALS: no pedal edema Neuro: SENSORIUM/ORIENTATION: Yes oriented to person, Yes oriented to place and Yes oriented to time OTHER: Moving bilateral upper and lower extremities, can follow commands such as squeezing my fingers, wiggling his toes able to smile for me, but cannot follow any other complex neurologic testing as he is still under the effect of anesthetic, he has had a CVA on the right I cannot discern any weakness currently Urinary Catheter Management: Dougherty: Cath Placed During This Visit: yes, but has since been removed by the nurse Reason for Continuing Indwelling Catheter: Accurate Measurement of Urinary Output in Critically Ill Patients Urinary Catheter Date of Insertion: 02/12/24 Urinary Catheter Time of Insertion: 14:30 Date Urinary Catheter Removed: 02/16/24 Time Urinary Catheter Discontinued: 17:00 Data 02/17/24 06:25 02/17/24 06:25 A&P Assessment and plan (1) Hypernatremia: Sodium level increasing most likely in setting of dehydration. Switch to D5 half NS at 50 cc/h. 20 mg IV Lasix one-time. Patient has developed hypokalemia today. Replace with 80 mg every hour with 2 doses. Repeat BMP in afternoon. (2) Anemia: Postoperatively hemoglobin has remained stable now. Received monitor blood transfusion. Target hemoglobin more than 8. Continue with iron supplementation to finish the 1 g course with last dose on 02/17. Continue to monitor daily. (3) Hypertension: Blood pressure is elevated now. Goal blood pressure less than 140/90 mmHg with mean over 65. Restart home dose of losartan. If needed will add amlodipine. Hold off on diuretics for now. (4) Encounter for postoperative care: Post right hemicolectomy for intestinal obstruction in a patient with history of rectal mass. (5) SIRS (systemic inflammatory response syndrome): Leukocytosis is resolving. Down to 11.7. Most likely reactionary. Continue with IV Zosyn empirically to finish a 5-day course. Follow-up blood cultures. Switch diet to mechanical soft for now. Cannot rule out mild aspiration. Chest x-ray seems to be showing resolving consolidation. Advance diet as per speech evaluation. (6) Elevated lactic acid level: Postoperative status. Resolved now. (7) Obstruction, colon: (8) Colonic mass: (9) Rectal mass: (10) Enlarged prostate: (11) Cerebrovascular accident: (12) S/P right hemicolectomy: (13) Hypotension: Postoperative hypotension. Has resolved. Blood pressure is elevated now. Plan Encephalopathy: Resolving. Most likely in postoperative status and secondary to hypotension. Chronically sick appearing. Does seem to have history of dementia. Hold off on Seroquel. Seems to be making patient more drowsy. Add Celexa 10 mg oral daily from tomorrow. Does have history of CVA. CT head negative for acute abnormality. Out of bed to chair. PT and OT evaluation. Incentive spirometry. CODE STATUS: Discussed in detail with patient's son at bedside. Spouse will be the DPOA. As per the son patient in the past had refused any kind of treatment for the mass which is believed to be cancer in the past as well and would not want any life prolonging measures if needed. CODE STATUS changed to DNR/DNI. Mechanical soft diet. Advance as per speech evaluation. Protonix 40 mg IV twice daily will be sufficient for PUD prophylaxis Heparin 5000 every 8 hourly and SCDs for DVT prophylaxis Discharge plan: PT recommends discharge to SNF. Patient has been accepted to [facility] but can only be discharged on Monday. Attestations 2 Medical Necessity Statement*: Requires further hospitalization for postoperative care in a patient was admitted for right hemicolectomy secondary to bowel obstruction from rectal mass, hypernatremia mild CHF discharge planning is sought Diagnoses Hypernatremia E87.0 Anemia D64.9 Hypertension I10 Encounter for postoperative care Z48.89 SIRS (systemic inflammatory response syndrome) R65.10 Elevated lactic acid level R79.89 Obstruction, colon K56.609 Colonic mass K63.89 Rectal mass K62.89 Enlarged prostate N40.0 Cerebrovascular accident I63.9 S/P right hemicolectomy Z90.49 Hypotension I95.9
[2024-02-17] MEDS: ipratropium-albuterol 3 mL Neb INHALATION ×3 (11:56→20:15)
--- NOTE | 2024-02-17 11:58 | PC.SLP ---
DIST[employer] bedside swallow evaluation was attempted. Patient had his lunch tray, but complained of no appetite. He refused to consume any solids or liquids offered by therapist. Difficulty responding to questions also noted. Plan to check back with patient tomorrow.
[2024-02-17] MEDS: HYDROcodone-acetaminophen 7.5-325 mg Tablet 1 TAB PO (13:45)
[2024-02-17 16:49] LABS: Glucose Point of Care 149 mg/dL (70-110)
[2024-02-17 21:02] LABS: Glucose Point of Care 137 mg/dL (70-110)
[2024-02-17] MEDS: atorvastatin 40 mg Tablet 80 MG PO (21:02)
[2024-02-17 21:13] LABS: Blood Urea Nitrogen 9 mg/dL (8-23); Calcium 7.5 mg/dL (8.5-10.5); Carbon Dioxide 22 mmol/L (22-29); Chloride 115 mmol/L (98-107); Creatinine Clr Calc Pharmacy 63.8042; Glucose 139 mg/dL (65-115); Osmolality Calculated 307 mOsm/kg (285-295); Sodium 148 mmol/L (136-145)
[2024-02-17 21:17] LABS: Anion Gap 14.9 (5-19); Potassium 3.9 mmol/L (3.5-5.1)
[2024-02-18] VITALS (12 sets, daily range): BP systolic 123–179; BP diastolic 61–80; PULSE 83–95; RESP 16–19; TEMP 36.4–36.7; O2SAT 94–97
[2024-02-18] MEDS: ipratropium-albuterol 3 mL Neb INHALATION ×4 (01:52→20:31)
[2024-02-18 05:51] LABS: Basophils # 0.1 10^3/uL (0.0-0.1); Basophils % 0.7 %; Eosinophils # 0.2 10^3/uL (0.0-0.8); Eosinophils % 1.8 %; Hematocrit 28.2 % (37-53); Lymphocytes # 1.4 10^3/uL (0.8-4.8); Mean Corpuscular HGB Conc 30.9 g/dL (30-55); Mean Corpuscular Hemoglobin 20.4 pg (27-33); Mean Corpuscular Volume 66.2 fl (82-101); Mean Platelet Volume 8.9 fL (7.4-10.4); Monocytes # 1.1 10^3/uL (0.2-0.9); Monocytes % 10.3 %; Neutrophils # 7.41 10^3/uL (1.8-7.7); Neutrophils % 69.5 %; Nucleated Red Blood Cells % 0 %; Platelet Count 318 10^3/cmm (157-399); Red Blood Count 4.26 10^6/uL (3.85-5.65); Red Cell Distribution Width 29.5 % (12.1-15.1); White Blood Count 10.66 10^3/uL (3.29-11.43)
[2024-02-18] MEDS: piperacillin-tazobactam 3.375 GM in sodium chloride 0.9% (plus) 50 ML IV ×3 (06:04→22:16)
[2024-02-18] MEDS: heparin 5,000 unit/mL INJ 1 mL 5000 UNIT SUBCUT ×3 (06:04→21:06)
[2024-02-18] MEDS: dextrose 5%-sod chloride 0.45% 1,000 ML 50 ML IV (06:05)
[2024-02-18 06:21] LABS: Alanine Aminotransferase 13 U/L (0-41); Albumin Level 2.9 g/dL (3.5-5.2); Alkaline Phosphatase 66 U/L (40-130); Anion Gap 12.6 (5-19); Aspartate Amino Transferase 17 U/L (0-40); Blood Urea Nitrogen 8 mg/dL (8-23); Calcium 7.3 mg/dL (8.5-10.5); Carbon Dioxide 24 mmol/L (22-29); Chloride 120 mmol/L (98-107); Creatinine Clr Calc Pharmacy 63.6236; Globulin 1.8 g/dL (1.3-4.6); Glucose 115 mg/dL (65-115); Osmolality Calculated 315 mOsm/kg (285-295); Potassium 3.6 mmol/L (3.5-5.1); Sodium 153 mmol/L (136-145); Total Bilirubin 0.6 mg/dL (0.15-1.2); Total Protein 4.7 g/dL (6.6-8.7)
[2024-02-18 06:33] LABS: Glucose Point of Care 138 mg/dL (70-110)
--- NOTE | 2024-02-18 07:50 | P.PN_ITS ---
Subjective 2 Subjective: And examined. Pain controlled. Tolerating regular diet Vitals/I&O/Wt Last Vital Signs Temp 97.4 F L 02/20/24 07:49 Pulse 94 02/20/24 07:49 Resp 20 H 02/20/24 07:49 BP 155/84 02/20/24 07:49 Pulse Ox 96 02/20/24 07:49 O2 Del Method Room Air 02/20/24 07:49 O2 Flow Rate 2 02/16/24 02:00 02/19/24 02/20/24 02/20/24 22:59 06:59 14:59 Intake Total 975 / 2231.25 Output Total 1000 / 1000 550 / 1550 Balance -25 / 1231.25 -550 / 681.25 Weight last 48 hrs Weight 186 lb 8 oz Weight 191 lb 9 oz Physical Exam 2 Narrative: General: No acute distress, oriented only to person Abdomen: Soft, appropriately tender, mildly distended Incision clean dry and intact without erythema or exudate Urinary Catheter Management: Dougherty: Cath Placed During This Visit: yes, but has since been removed by the nurse Reason for Continuing Indwelling Catheter: Acute Urinary Retention or Obstruction Urinary Catheter Date of Insertion: 02/17/24 Urinary Catheter Time of Insertion: 14:24 Date Urinary Catheter Removed: 02/16/24 Time Urinary Catheter Discontinued: 17:00 Data 02/20/24 05:42 02/20/24 05:42 A&P Assessment and plan (1) Colonic mass: (2) Obstruction, colon: (3) Rectal mass: (4) S/P right hemicolectomy: (5) Umbilical hernia: Plan Postoperative day #6 status post open extended right hemicolectomy and primary umbilical hernia repair IV antibiotics DC IV fluids regular diet Incentive spirometer PT Out of bed to chair is much as possible, ambulate Plans for discharge to SNF likely Monday if went well except Appreciate hospitalist recommendations Subcu heparin Attestations 2 Medical Necessity Statement*: Patient requires multiple nights in the hospital for recovery after exploratory laparotomy and right hemicolectomy for transverse colon mass causing obstruction. Patient be discharged to [facility] facility likely Monday Coding Level of Care Code Acute Code for Chg Fwd Diagnoses Colonic mass K63.89 Obstruction, colon K56.609 Rectal mass K62.89 S/P right hemicolectomy Z90.49 Umbilical hernia K42.9
[2024-02-18] MEDS: aspirin 325 mg Tablet PO (08:12)
[2024-02-18] MEDS: citalopram 20 mg Tablet PO (08:12)
[2024-02-18] MEDS: pantoprazole 40 mg SDV IVP ×2 (08:12→16:54)
[2024-02-18] MEDS: losartan 50 mg Tablet 25 MG PO (08:13)
[2024-02-18] MEDS: HYDROcodone-acetaminophen 7.5-325 mg Tablet 1 TAB PO (09:15)
[2024-02-18] MEDS: iron sucrose 200 MG in sodium chloride 0.9% (100 ml) 100 ML 220 MG IV (09:52)
[2024-02-18] MEDS: amlodipine 10 mg Tablet PO (11:26)
[2024-02-18] MEDS: dextrose 5% 1,000 ML 75 ML IV (11:27)
[2024-02-18 11:29] LABS: Glucose Point of Care 139 mg/dL (70-110)
--- NOTE | 2024-02-18 15:30 | P.PN_ITS ---
Subjective 2 Subjective: No acute events overnight. Seen sitting up in chair today. Seen with family at bedside. Patient is awake. Continues to have poor oral intake. After family ember his oral intake has been poor for quite a long time. Denies any nausea, vomiting, headache. Continues to have bowel movements. Hemodynamically stable on room air. Blood pressure slightly elevated. Vitals/I&O/Wt Last Vital Signs Temp 97.7 F 02/18/24 11:49 Pulse 87 02/18/24 13:36 Resp 18 02/18/24 13:36 BP 157/75 02/18/24 11:49 Pulse Ox 96 02/18/24 13:36 O2 Del Method Room Air 02/18/24 13:36 O2 Flow Rate 2 02/16/24 02:00 02/18/24 02/18/24 02/18/24 06:59 14:59 22:59 Intake Total 1028.333 / 2440.833 909.167 / 909.167 Output Total 200 / 1850 Balance 828.333 / 590.833 909.167 / 909.167 Weight last 48 hrs Weight 83.943 kg Weight 84.453 kg Physical Exam 2 Const: COMMON NORMALS: no acute distress GENERAL APPEARANCE: cooperative, comfortable, lethargic and frail appearing ORIENTATION/CONSCIOUSNESS: Yes awake, Yes oriented to person, Yes oriented to place, Yes oriented to time and Yes lethargic OTHER: Chronically sick and tired appearing Eye: COMMON NORMALS: Equal, round and reactive pupils present PUPIL: Yes Equal, round and reactive pupils present Resp: COMMON NORMALS: normal respiratory effort, No retractions, No use of accessory muscles and clear to auscultation bilaterally AUSCULTATION: clear to auscultation bilaterally Cardio: COMMON NORMALS: regular rate, regular rhythm, S1 normal heart sound present and S2 normal heart sound present RATE: regular rate RHYTHM: r egular rhythm HEART SOUNDS: S1 normal heart sound present and S2 normal heart sound present GI: COMMON NORMALS: Normal to inspection, nondistended, normoactive bowel sounds present and non-tender Extremity: COMMON NORMALS: no pedal edema Neuro: SENSORIUM/ORIENTATION: Yes oriented to person, Yes oriented to place, Yes oriented to time and Yes lethargic OTHER: Moving bilateral upper and lower extremities, can follow commands such as squeezing my fingers, wiggling his toes able to smile for me, but cannot follow any other complex neurologic testing as he is still under the effect of anesthetic, he has had a CVA on the right I cannot discern any weakness currently Urinary Catheter Management: Dougherty: Cath Placed During This Visit: yes, but has since been removed by the nurse Reason for Continuing Indwelling Catheter: Acute Urinary Retention or Obstruction Urinary Catheter Date of Insertion: 02/17/24 Urinary Catheter Time of Insertion: 14:24 Date Urinary Catheter Removed: 02/16/24 Time Urinary Catheter Discontinued: 17:00 Data 02/18/24 04:58 02/18/24 04:58 Micro: Microbiology 02/12/24 14:44 Blood Culture - Final Blood NO GROWTH AFTER 5 DAYS 02/12/24 14:36 Blood Culture - Final Blood NO GROWTH AFTER 5 DAYS A&P Assessment and plan (1) Hypernatremia: Sodium level increasing most likely in setting of dehydration. Switch to D5 half NS at 50 cc/h. 20 mg IV Lasix one-time. Patient has developed hypokalemia today. Replace with 80 mg every hour with 2 doses. Repeat BMP in afternoon. (2) Anemia: Postoperatively hemoglobin has remained stable now. Received monitor blood transfusion. Target hemoglobin more than 8. Continue with iron supplementation to finish the 1 g course with last dose on 02/17. Continue to monitor daily. (3) Hypertension: Blood pressure is elevated now. Goal blood pressure less than 140/90 mmHg with mean over 65. Restart home dose of losartan. If needed will add amlodipine. Hold off on diuretics for now. (4) Encounter for postoperative care: Post right hemicolectomy for intestinal obstruction in a patient with history of rectal mass. (5) SIRS (systemic inflammatory response syndrome): Leukocytosis is resolving. Down to 11.7. Most likely reactionary. Continue with IV Zosyn empirically to finish a 5-day course. Follow-up blood cultures. Switch diet to mechanical soft for now. Cannot rule out mild aspiration. Chest x-ray seems to be showing resolving consolidation. Advance diet as per speech evaluation. (6) Elevated lactic acid level: Postoperative status. Resolved now. (7) Obstruction, colon: (8) Colonic mass: (9) Rectal mass: (10) Enlarged prostate: (11) Cerebrovascular accident: (12) S/P right hemicolectomy: (13) Hypotension: Postoperative hypotension. Has resolved. Blood pressure is elevated now. (14) Urinary retention: Plan Encephalopathy: Resolving. Most likely in postoperative status and secondary to hypotension. Chronically sick appearing. Does seem to have history of dementia. Hold off on Seroquel. Seems to be making patient more drowsy. Does have history of CVA. CT head negative for acute abnormality. Out of bed to chair. PT and OT evaluation. Incentive spirometry. CODE STATUS: Discussed in detail with patient's son at bedside. Spouse will be the DPOA. As per the son patient in the past had refused any kind of treatment for the mass which is believed to be cancer in the past as well and would not want any life prolonging measures if needed. CODE STATUS changed to DNR/DNI. Mechanical soft diet. Advance as per speech evaluation. Protonix 40 mg IV twice daily will be sufficient for PUD prophylaxis Heparin 5000 every 8 hourly and SCDs for DVT prophylaxis Plan for the day: Continue with IV antibiotics with Zosyn for now. Will plan for overall 7-day course. Last dose on 02/18. Goal blood pressure less than 140/90 MAG. Blood pressure elevated. Add amlodipine 10 mg oral daily. If blood pressure not controlled we will plan to increase dose of losartan to 50 mg oral daily. Encourage patient to increase oral intake. Family at bedside. Sodium level worsening. Repeat in evening. Switch to D5W at 75 cc/h. High concerns for aspiration. Continue speech therapy. Modified barium swallow in AM. Change diet accordingly. Currently on level 5 dysphagia diet. Patient having increasing somnolence. For now hold off on any further Celexa or Seroquel. Dougherty catheter was replaced on 02/16. Add Flomax 0.4 mg oral daily. Voiding trial in a.m. Discharge plan: PT recommends discharge to SNF. Patient has been accepted to [facility] but can only be discharged on Monday. Attestations 2 Medical Necessity Statement*: Requires further hospitalization for management of postoperative care the patient was admitted for small bowel obstruction; abdominal mass post hemicolectomy, hypernatremia while safe discharge planning is sought. Diagnoses Hypernatremia E87.0 Anemia D64.9 Hypertension I10 Encounter for postoperative care Z48.89 SIRS (systemic inflammatory response syndrome) R65.10 Elevated lactic acid level R79.89 Obstruction, colon K56.609 Colonic mass K63.89 Rectal mass K62.89 Enlarged prostate N40.0 Cerebrovascular accident I63.9 S/P right hemicolectomy Z90.49 Hypotension I95.9 Urinary retention R33.9
[2024-02-18] MEDS: tamsulosin 0.4 mg Capsule 0.400000000000000022 MG PO (15:51)
[2024-02-18 16:35] LABS: Anion Gap 13.3 (5-19); Blood Urea Nitrogen 9 mg/dL (8-23); Calcium 7.5 mg/dL (8.5-10.5); Carbon Dioxide 22 mmol/L (22-29); Chloride 113 mmol/L (98-107); Creatinine Clr Calc Pharmacy 63.6236; Glucose 152 mg/dL (65-115); Osmolality Calculated 302 mOsm/kg (285-295); Potassium 3.3 mmol/L (3.5-5.1); Sodium 145 mmol/L (136-145)
[2024-02-18 16:37] LABS: Glucose Point of Care 152 mg/dL (70-110)
[2024-02-18] MEDS: atorvastatin 40 mg Tablet 80 MG PO (21:06)
[2024-02-19] VITALS (12 sets, daily range): BP systolic 115–152; BP diastolic 60–78; PULSE 78–104; RESP 16–20; TEMP 36.4–36.8; O2SAT 92–98
[2024-02-19] MEDS: dextrose 5% 1,000 ML 75 ML IV (00:47)
[2024-02-19] MEDS: ipratropium-albuterol 3 mL Neb INHALATION ×4 (02:54→20:03)
[2024-02-19 05:04] LABS: Basophils # 0.1 10^3/uL (0.0-0.1); Basophils % 0.5 %; Eosinophils # 0.3 10^3/uL (0.0-0.8); Eosinophils % 2.2 %; Hematocrit 28.3 % (37-53); Lymphocytes # 1.4 10^3/uL (0.8-4.8); Lymphocytes % 12.1 %; Mean Corpuscular HGB Conc 29.3 g/dL (30-55); Mean Corpuscular Hemoglobin 20.5 pg (27-33); Mean Platelet Volume 9.2 fL (7.4-10.4); Monocytes # 0.9 10^3/uL (0.2-0.9); Monocytes % 7.7 %; Neutrophils # 8.45 10^3/uL (1.8-7.7); Neutrophils % 74.3 %; Nucleated Red Blood Cells % 0 %; Platelet Count 290 10^3/cmm (157-399); Red Blood Count 4.04 10^6/uL (3.85-5.65); Red Cell Distribution Width 30.2 % (12.1-15.1); White Blood Count 11.38 10^3/uL (3.29-11.43)
[2024-02-19 05:28] LABS: Sodium 142 mmol/L (136-145)
[2024-02-19 05:41] LABS: Alanine Aminotransferase 14 U/L (0-41); Alkaline Phosphatase 67 U/L (40-130); Aspartate Amino Transferase 20 U/L (0-40); Blood Urea Nitrogen 9 mg/dL (8-23); Calcium 7.3 mg/dL (8.5-10.5); Carbon Dioxide 21 mmol/L (22-29); Creatinine Clr Calc Pharmacy 64.6676; Glucose 113 mg/dL (65-115); Osmolality Calculated 293 mOsm/kg (285-295); Total Bilirubin 0.6 mg/dL (0.15-1.2); Total Protein 4.4 g/dL (6.6-8.7)
[2024-02-19 05:55] LABS: Albumin Level 2.8 g/dL (3.5-5.2); Anion Gap 13.1 (5-19); Chloride 110 mmol/L (98-107); Globulin 1.6 g/dL (1.3-4.6); Potassium 3.1 mmol/L (3.5-5.1)
[2024-02-19] MEDS: piperacillin-tazobactam 3.375 GM in sodium chloride 0.9% (plus) 50 ML IV ×2 (06:06→15:03)
[2024-02-19] MEDS: heparin 5,000 unit/mL INJ 1 mL 5000 UNIT SUBCUT ×3 (06:07→20:07)
[2024-02-19 06:39] LABS: Glucose Point of Care 121 mg/dL (70-110)
--- NOTE | 2024-02-19 07:53 | PM.PN ---
Subjective Subjective: And examined. Tolerating diet. He had coarse breath sounds this morning and hospitalist concerned about possible aspiration. Modified barium swallow was ordered Vitals/I&O/Wt Last Vital Signs Temp 97.4 F L 02/20/24 07:49 Pulse 94 02/20/24 07:49 Resp 20 H 02/20/24 07:49 BP 155/84 02/20/24 07:49 Pulse Ox 96 02/20/24 07:49 O2 Del Method Room Air 02/20/24 07:49 O2 Flow Rate 2 02/16/24 02:00 02/19/24 02/20/24 02/20/24 22:59 06:59 14:59 Intake Total 975 / 2231.25 Output Total 1000 / 1000 550 / 1550 Balance -25 / 1231.25 -550 / 681.25 Weight last 48 hrs Weight 186 lb 8 oz Weight 191 lb 9 oz Physical Exam Narrative: General: No acute distress, oriented only to person Abdomen: Soft, appropriately tender, mildly distended Incision clean dry and intact without erythema or exudate Urinary Catheter Management: Dougherty: Cath Placed During This Visit: yes, but has since been removed by the nurse Reason for Continuing Indwelling Catheter: Acute Urinary Retention or Obstruction Urinary Catheter Date of Insertion: 02/17/24 Urinary Catheter Time of Insertion: 14:24 Date Urinary Catheter Removed: 02/16/24 Time Urinary Catheter Discontinued: 17:00 Data 02/20/24 05:42 02/20/24 05:42 A&P Assessment and plan (1) Colonic mass: (2) Obstruction, colon: (3) Rectal mass: (4) S/P right hemicolectomy: (5) Umbilical hernia: Plan Postoperative day #7 status post open extended right hemicolectomy and primary umbilical hernia repair IV antibiotics regular diet Incentive spirometer PT Out of bed to chair is much as possible, ambulate Modified barium swallow cannot be done till tomorrow rule out aspiration Plans for discharge to SNF likely tomorrow after modified barium swallow Appreciate hospitalist recommendations Subcu heparin Attestations Medical Necessity Statement*: Patient requires multiple nights in the hospital for recovery after exploratory laparotomy and right hemicolectomy for transverse colon mass causing obstruction. Patient be discharged to senior living facility likely tomorrow pending results of modified barium swallow to evaluate for possible aspiration Coding Level of Care Code Acute Code for Chg Fwd Diagnoses Colonic mass K63.89 Obstruction, colon K56.609 Rectal mass K62.89 S/P right hemicolectomy Z90.49 Umbilical hernia K42.9
--- NOTE | 2024-02-19 09:47 | PC.NURSE ---
Addendum entered by Neeta Ward LPN 02/19/24 10:26: Dr. Flores is now over patients care. All of this information was relayed to her in heart to heart and via text message. Initial plan per Mark was to d/c today, however, with pt health status currently, we will keep pt for another night. Addendum entered by Neeta Ward LPN 02/19/24 10:00: Doctors last progress notes cannot rule out mild aspiration and High risk for aspiration Original Note: During my assessment this morning, this nurse found pt to be fluid overloaded, hearing him from the doorway. Lung sounds have crackles. At this time, fluids were shut off and pt was transferred to a seated position in a recliner. It was also reported to me by the night nurse this morning that prior to pt being NPO for his MBS today, he was choking and having difficulty swallowing with eating and drinking so she had kept him NPO for possible aspiration. Doctors report also notes mild aspiration in chart. I have held patients PO meds at the moment and informed Dr. Ortiz, however, he has instructed me to give oral meds. I feel like pt is at a great risk of aspiration and do not feel comfortable administering meds at the moment. I will speak to Dr. Ortiz more in heart to heart.
[2024-02-19 10:33] LABS: Mismatch Repari Proteins-IHC See Report
[2024-02-19 11:47] LABS: Glucose Point of Care 108 mg/dL (70-110)
[2024-02-19] MEDS: lidocaine 1% 5 ML in potassium chloride premix 100 ML 26.25 ML IV (11:58)
[2024-02-19] MEDS: pantoprazole 40 mg SDV IVP ×2 (12:40→17:20)
[2024-02-19] MEDS: FUROsemide 10 mg/mL SDV 2mL 20 MG IVP (14:59)
[2024-02-19 16:44] LABS: Glucose Point of Care 100 mg/dL (70-110)
--- NOTE | 2024-02-19 17:01 | P.PN_ITS ---
Subjective 2 Subjective: Patient denies any new complaints today. Noted to have bilateral lower extremity edema. Continues to have crackles on exam. Modified barium swallow planned for today has been rescheduled to tomorrow. Sodium normal today at 142. Hypokalemia persisting, supplemented IV. Medications: Reviewed: Yes Vitals/I&O/Wt Last Vital Signs Temp 98.2 F 02/19/24 16:12 Pulse 85 02/19/24 16:12 Resp 18 02/19/24 16:12 BP 126/66 02/19/24 16:12 Pulse Ox 94 02/19/24 16:12 O2 Del Method Room Air 02/19/24 15:10 O2 Flow Rate 2 02/16/24 02:00 02/19/24 02/19/24 02/19/24 06:59 14:59 22:59 Intake Total 1050 / 2489.167 1256.25 / 1256.25 105 / 1361.25 Output Total 100 / 200 Balance 950 / 2289.167 1256.25 / 1256.25 105 / 1361.25 Weight last 48 hrs Weight 86.891 kg Weight 83.943 kg Physical Exam 2 Narrative: General: No acute distress, AO x coarse crackles to auscultation bilaterally3 HEENT: PERRLA, pupils bilaterally equal and reactive, pallors not present Chest: Coarse crackles to auscultation bilaterally CVS: S1-S2 regular, no murmurs, no tachycardia, no gallops, no rubs Abdomen: Soft, nontender, no organomegaly, bowel sounds present Neuro: No focal deficits, no facial deformity, AO x3, power 5/5 in all limbs Urinary Catheter Management: Dougherty: Cath Placed During This Visit: yes, but has since been removed by the nurse Reason for Continuing Indwelling Catheter: Acute Urinary Retention or Obstruction Urinary Catheter Date of Insertion: 02/17/24 Urinary Catheter Time of Insertion: 14:24 Date Urinary Catheter Removed: 02/16/24 Time Urinary Catheter Discontinued: 17:00 Data 02/19/24 04:20 02/19/24 04:20 A&P Assessment and plan (1) Hypernatremia: Sodium level currently improved at 142. Hypernatremia resolving. Discontinue IV fluids today due to concerns for developing hypervolemia. Lasix 20 mg IV today Replace hypokalemia with 80 mg IV at 10 mg/h Repeat BMP i with a.m. labs (2) Anemia: Postoperatively hemoglobin has remained stable now. Currently at 8.3 Target hemoglobin more than 8 for transfusion Status post iron supplementation until 02/17. . (3) Hypertension: Blood pressure better controlled today Continue home dose of losartan and amlodipine. (4) Encounter for postoperative care: Post right hemicolectomy for intestinal obstruction in a patient with history of rectal mass. (5) SIRS (systemic inflammatory response syndrome): Leukocytosis resolved Most likely reactionary. Continue with IV Zosyn empirically to finish a 7-day course. Negative blood cultures to date Switch diet to mechanical soft for now. Cannot rule out mild aspiration. Pending barium swallow. (6) Elevated lactic acid level: Postoperative status. Resolved now. (7) Obstruction, colon: (8) Colonic mass: (9) Rectal mass: (10) Enlarged prostate: (11) Cerebrovascular accident: (12) S/P right hemicolectomy: (13) Hypotension: Postoperative hypotension. Has resolved. Blood pressure is elevated now. (14) Urinary retention: Plan Encephalopathy: Resolving. Most likely in postoperative status and secondary to hypotension. Chronically sick appearing. Does seem to have history of dementia. Hold off on Seroquel. Seems to be making patient more drowsy. Does have history of CVA. CT head negative for acute abnormality. Out of bed to chair. PT and OT evaluation. Incentive spirometry. CODE STATUS: Discussed in detail with patient's son at bedside. Spouse will be the DPOA. As per the son patient in the past had refused any kind of treatment for the mass which is believed to be cancer in the past as well and would not want any life prolonging measures if needed. CODE STATUS changed to DNR/DNI. Mechanical soft diet. Advance as per speech evaluation. Protonix 40 mg IV twice daily will be sufficient for PUD prophylaxis Heparin 5000 every 8 hourly and SCDs for DVT prophylaxis Attestations 2 Medical Necessity Statement*: Pending barium swallow, correction of electrolyte abnormalities, IV Lasix today Coding Level of Care Code Acute Code for Chg Fwd Moderate MDM includes number and complexity of problems actively addressed during encounter, amount and/or complexity of data reviewed/ordered and described risk of complication, morbidity or mortality of management as documented Diagnoses Hypernatremia E87.0 Anemia D64.9 Hypertension I10 Encounter for postoperative care Z48.89 SIRS (systemic inflammatory response syndrome) R65.10 Elevated lactic acid level R79.89 Obstruction, colon K56.609 Colonic mass K63.89 Rectal mass K62.89 Enlarged prostate N40.0 Cerebrovascular accident I63.9 S/P right hemicolectomy Z90.49 Hypotension I95.9 Urinary retention R33.9
[2024-02-19] MEDS: atorvastatin 40 mg Tablet 80 MG PO (20:07)
[2024-02-19 20:42] LABS: Glucose Point of Care 114 mg/dL (70-110)
[2024-02-20] VITALS (10 sets, daily range): BP systolic 118–170; BP diastolic 60–84; PULSE 84–99; RESP 16–20; TEMP 36.3–37.2; O2SAT 93–97; BMI 30.1
[2024-02-20] MEDS: ondansetron 2 mg/ML SDV 2 mL 4 MG IVP (02:07)
--- NOTE | 2024-02-20 02:29 | PC.NURSE ---
Patient vomited large amount of green colored emesis. Unable to measure due to majority of emesis being on patient's bed and floor. Patient given PRN Zofran.
[2024-02-20] MEDS: heparin 5,000 unit/mL INJ 1 mL 5000 UNIT SUBCUT ×3 (05:45→21:28)
[2024-02-20 06:11] LABS: Basophils # 0.1 10^3/uL (0.0-0.1); Basophils % 0.4 %; Eosinophils # 0.2 10^3/uL (0.0-0.8); Eosinophils % 1.3 %; Lymphocytes # 1.2 10^3/uL (0.8-4.8); Lymphocytes % 9.7 %; Mean Corpuscular HGB Conc 29.7 g/dL (30-55); Mean Corpuscular Hemoglobin 20.3 pg (27-33); Mean Corpuscular Volume 68.3 fl (82-101); Mean Platelet Volume 9.1 fL (7.4-10.4); Monocytes # 0.6 10^3/uL (0.2-0.9); Monocytes % 4.8 %; Neutrophils # 10.32 10^3/uL (1.8-7.7); Neutrophils % 81.7 %; Nucleated Red Blood Cells % 0 %; Platelet Count 310 10^3/cmm (157-399); Red Blood Count 4.54 10^6/uL (3.85-5.65); Red Cell Distribution Width 31.3 % (12.1-15.1); White Blood Count 12.63 10^3/uL (3.29-11.43)
[2024-02-20 06:32] LABS: Alanine Aminotransferase 18 U/L (0-41); Albumin Level 2.9 g/dL (3.5-5.2); Alkaline Phosphatase 81 U/L (40-130); Anion Gap 13.4 (5-19); Aspartate Amino Transferase 25 U/L (0-40); Blood Urea Nitrogen 9 mg/dL (8-23); Calcium 7.8 mg/dL (8.5-10.5); Carbon Dioxide 24 mmol/L (22-29); Chloride 109 mmol/L (98-107); Creatinine Clr Calc Pharmacy 63.8545; Globulin 2.5 g/dL (1.3-4.6); Glucose 98 mg/dL (65-115); Osmolality Calculated 295 mOsm/kg (285-295); Potassium 3.4 mmol/L (3.5-5.1); Sodium 143 mmol/L (136-145); Total Bilirubin 0.6 mg/dL (0.15-1.2); Total Protein 5.4 g/dL (6.6-8.7)
[2024-02-20 06:38] LABS: Glucose Point of Care 97 mg/dL (70-110)
[2024-02-20] MEDS: ipratropium-albuterol 3 mL Neb INHALATION ×3 (08:18→20:13)
[2024-02-20 10:37] LABS: SARS Covid-2 Antigen negative (Negative)
[2024-02-20 11:01] LABS: Glucose Point of Care 107 mg/dL (70-110)
--- NOTE | 2024-02-20 11:26 | PC.NURSE ---
Meds late due to being NPO status and off of unit for IVP
[2024-02-20] MEDS: pantoprazole 40 mg SDV IVP ×2 (11:33→17:44)
[2024-02-20] MEDS: lidocaine 1% 5 ML in potassium chloride premix 100 ML 52.5 ML IV (12:25)
--- NOTE | 2024-02-20 13:43 | XRR_ITS ---
PROCEDURE INFORMATION: Exam: XR Abdomen Exam date and time: 02/20/2024 1:50 PM Age: 88 years old Clinical indication: Other: Distention TECHNIQUE: Imaging protocol: Radiologic exam of the abdomen. Views: Frontal supine view of the abdomen. 1 View. COMPARISON: CR XR abdomen 1V* [id number] 02/15/2024 10:10 AM FINDINGS: Gastrointestinal tract: Multiple loops of dilated small bowel compatible with postoperative ileus versus small bowel obstruction in the proper clinical setting. Bones/joints: No evidence of acute osseous abnormality. XR/XR abdomen 1V* [id number] IMPRESSION: 1. Multiple loops of dilated small bowel compatible with postoperative ileus versus small bowel obstruction in the proper clinical setting.
[2024-02-20] MEDS: FUROsemide 10 mg/mL SDV 2mL 20 MG IVP (14:05)
--- NOTE | 2024-02-20 15:50 | P.PN_ITS ---
Subjective 2 Subjective: Patient is more lethargic today. He was unable to complete the MBS. Stated that he did not wish to participate in the study. He had a large bilious vomiting overnight. Belly appears to be more distended than previously. Medications: Reviewed: Yes Vitals/I&O/Wt Last Vital Signs Temp 97.8 F 02/20/24 15:31 Pulse 93 02/20/24 15:31 Resp 17 02/20/24 15:31 BP 146/71 02/20/24 15:31 Pulse Ox 97 02/20/24 15:31 O2 Del Method Room Air 02/20/24 15:31 O2 Flow Rate 2 02/16/24 02:00 02/20/24 02/20/24 02/20/24 06:59 14:59 22:59 Intake Total 105 / 105 Output Total 550 / 1550 650 / 650 Balance -550 / 681.25 105 / 105 -650 / -545 Weight last 48 hrs Weight 84.595 kg Weight 86.891 kg Physical Exam 2 Narrative: General: No acute distress, AO x coarse crackles to auscultation bilaterally3 HEENT: PERRLA, pupils bilaterally equal and reactive, pallors not present Chest: Coarse crackles to auscultation bilaterally CVS: S1-S2 regular, no murmurs, no tachycardia, no gallops, no rubs Abdomen: Soft, nontender, no organomegaly, bowel sounds present Neuro: No focal deficits, no facial deformity, AO x3, power 5/5 in all limbs Urinary Catheter Management: Dougherty: Cath Placed During This Visit: yes, but has since been removed by the nurse Reason for Continuing Indwelling Catheter: Acute Urinary Retention or Obstruction Urinary Catheter Date of Insertion: 02/17/24 Urinary Catheter Time of Insertion: 14:24 Date Urinary Catheter Removed: 02/16/24 Time Urinary Catheter Discontinued: 17:00 Data 02/20/24 05:42 02/20/24 05:42 A&P Assessment and plan (1) Hypernatremia: Sodium level currently improved at 142. Hypernatremia resolving. Discontinue IV fluids today due to concerns for developing hypervolemia. Lasix 20 mg IV today Replace hypokalemia with 80 mg IV at 10 mg/h Repeat BMP i with a.m. labs (2) Anemia: Postoperatively hemoglobin has remained stable now. Currently at 8.3 Target hemoglobin more than 8 for transfusion Status post iron supplementation until 02/17. . (3) Hypertension: Blood pressure better controlled today Continue home dose of losartan and amlodipine. (4) Encounter for postoperative care: Post right hemicolectomy for intestinal obstruction in a patient with history of rectal mass. (5) SIRS (systemic inflammatory response syndrome): Leukocytosis resolved Most likely reactionary. Continue with IV Zosyn empirically to finish a 7-day course. Negative blood cultures to date Switch diet to mechanical soft for now. Cannot rule out mild aspiration. Pending barium swallow. (6) Elevated lactic acid level: Postoperative status. Resolved now. (7) Obstruction, colon: (8) Colonic mass: (9) Rectal mass: (10) Enlarged prostate: (11) Cerebrovascular accident: (12) S/P right hemicolectomy: (13) Hypotension: Postoperative hypotension. Has resolved. Blood pressure is elevated now. (14) Urinary retention: Plan Encephalopathy: Resolving. Most likely in postoperative status and secondary to hypotension. Chronically sick appearing. Does seem to have history of dementia. Hold off on Seroquel. Seems to be making patient more drowsy. Does have history of CVA. CT head negative for acute abnormality. Out of bed to chair. PT and OT evaluation. Incentive spirometry. CODE STATUS: Discussed in detail with patient's son at bedside. Spouse will be the DPOA. As per the son patient in the past had refused any kind of treatment for the mass which is believed to be cancer in the past as well and would not want any life prolonging measures if needed. CODE STATUS changed to DNR/DNI. Mechanical soft diet. Advance as per speech evaluation. Protonix 40 mg IV twice daily will be sufficient for PUD prophylaxis Heparin 5000 every 8 hourly and SCDs for DVT prophylaxis Plan for today February 20, 2024. Patient is more lethargic today. Continues to saturate 97% on room air. Had a large episode of bilious vomiting yesterday. X-ray of the abdomen showed distended bowel loops consistent with postop ileus. Patient made n.p.o. He was unable to participate with a barium swallow. Chest auscultation reveals bilateral coarse crackles. Concerned that patient may have aspirated. Piperacillin/tazobactam was discontinued yesterday after an empiric 7-day course, will resume again today. Additional dose of Lasix 20 mg IV to be given today. Last echocardiogram dating back to December 2022 shows evidence of grade 1 diastolic heart failure which may potentially be contributing. Sodium remained stable, however hypokalemic again which has been repleted via the IV route. Attestations 2 Medical Necessity Statement*: Per admitting Coding Level of Care Code Acute Code for Chg Fwd Moderate MDM includes number and complexity of problems actively addressed during encounter, amount and/or complexity of data reviewed/ordered and described risk of complication, morbidity or mortality of management as documented Diagnoses Hypernatremia E87.0 Anemia D64.9 Hypertension I10 Encounter for postoperative care Z48.89 SIRS (systemic inflammatory response syndrome) R65.10 Elevated lactic acid level R79.89 Obstruction, colon K56.609 Colonic mass K63.89 Rectal mass K62.89 Enlarged prostate N40.0 Cerebrovascular accident I63.9 S/P right hemicolectomy Z90.49 Hypotension I95.9 Urinary retention R33.9
[2024-02-20 16:37] LABS: Glucose Point of Care 89 mg/dL (70-110)
--- NOTE | 2024-02-20 16:55 | P.PN_ITS ---
Subjective 2 Subjective: Patient seen and examined. He had an episode of emesis overnight. Awaiting barium swallow. Pain controlled Vitals/I&O/Wt Last Vital Signs Temp 98.6 F 02/21/24 16:00 Pulse 95 02/21/24 16:00 Resp 17 02/21/24 16:00 BP 131/69 02/21/24 16:00 Pulse Ox 97 02/21/24 16:00 O2 Del Method Room Air 02/21/24 16:00 O2 Flow Rate 2 02/16/24 02:00 02/21/24 02/21/24 02/21/24 06:59 14:59 22:59 Intake Total 50 / 205 405 / 405 Output Total 50 / 1400 Balance 0 / -1195 405 / 405 Weight last 48 hrs Weight 186 lb 1.6 oz Weight 186 lb 8 oz Physical Exam 2 Narrative: General: No acute distress Abdomen: Soft, appropriately tender, mildly distended Incision clean dry and intact without erythema or exudate Urinary Catheter Management: Dougherty: Cath Placed During This Visit: yes, but has since been removed by the nurse Reason for Continuing Indwelling Catheter: Other Urinary Catheter Date of Insertion: 02/17/24 Urinary Catheter Time of Insertion: 14:24 Date Urinary Catheter Removed: 02/16/24 Time Urinary Catheter Discontinued: 17:00 Data 02/21/24 05:02 02/21/24 05:02 A&P Assessment and plan (1) Colonic mass: (2) Obstruction, colon: (3) Rectal mass: (4) S/P right hemicolectomy: (5) Umbilical hernia: Plan Postoperative day # patient8 status post open extended right hemicolectomy and primary umbilical hernia repair Follow-up results of modified barium swallow NPO Incentive spirometer PT Out of bed to chair is much as possible, ambulate Plans for discharge to SNF likely tomorrow after modified barium swallow Appreciate hospitalist recommendations Subcu heparin Attestations 2 Medical Necessity Statement*: Continued admission for ileus, awaiting return of bowel function, trial of laxatives today. Discharge pending return of bowel function. Coding Level of Care Code Acute Code for Chg Fwd Diagnoses Colonic mass K63.89 Obstruction, colon K56.609 Rectal mass K62.89 S/P right hemicolectomy Z90.49 Umbilical hernia K42.9
[2024-02-20] MEDS: piperacillin-tazobactam 3.375 GM in sodium chloride 0.9% (plus) 50 ML IV ×2 (17:10→23:30)
[2024-02-20 20:36] LABS: Glucose Point of Care 85 mg/dL (70-110)
[2024-02-20] MEDS: atorvastatin 40 mg Tablet 80 MG PO (20:44)
[2024-02-21] VITALS (11 sets, daily range): BP systolic 106–131; BP diastolic 57–69; PULSE 80–95; RESP 16–18; TEMP 36.4–37; O2SAT 92–97
[2024-02-21] MEDS: ipratropium-albuterol 3 mL Neb INHALATION ×4 (02:40→20:04)
[2024-02-21 05:32] LABS: Basophils # 0.1 10^3/uL (0.0-0.1); Basophils % 0.6 %; Eosinophils # 0.3 10^3/uL (0.0-0.8); Eosinophils % 2.2 %; Hematocrit 27.1 % (37-53); Lymphocytes # 1.2 10^3/uL (0.8-4.8); Lymphocytes % 10.6 %; Mean Corpuscular HGB Conc 29.9 g/dL (30-55); Mean Corpuscular Hemoglobin 20.6 pg (27-33); Mean Platelet Volume 9.1 fL (7.4-10.4); Monocytes # 0.6 10^3/uL (0.2-0.9); Monocytes % 4.7 %; Neutrophils # 9.35 10^3/uL (1.8-7.7); Neutrophils % 80.4 %; Nucleated Red Blood Cells % 0 %; Platelet Count 283 10^3/cmm (157-399); Red Blood Count 3.93 10^6/uL (3.85-5.65); Red Cell Distribution Width 31.5 % (12.1-15.1); White Blood Count 11.63 10^3/uL (3.29-11.43)
[2024-02-21] MEDS: heparin 5,000 unit/mL INJ 1 mL 5000 UNIT SUBCUT ×3 (05:38→21:15)
[2024-02-21 05:53] LABS: Alanine Aminotransferase 17 U/L (0-41); Albumin Level 2.6 g/dL (3.5-5.2); Alkaline Phosphatase 76 U/L (40-130); Anion Gap 12.8 (5-19); Aspartate Amino Transferase 24 U/L (0-40); Blood Urea Nitrogen 9 mg/dL (8-23); Calcium 7.4 mg/dL (8.5-10.5); Carbon Dioxide 23 mmol/L (22-29); Chloride 109 mmol/L (98-107); Creatinine Clr Calc Pharmacy 63.7904; Globulin 2.1 g/dL (1.3-4.6); Glucose 71 mg/dL (65-115); Osmolality Calculated 291 mOsm/kg (285-295); Sodium 142 mmol/L (136-145); Total Bilirubin 0.6 mg/dL (0.15-1.2); Total Protein 4.7 g/dL (6.6-8.7)
[2024-02-21 05:55] LABS: Potassium 2.8 mmol/L (3.5-5.1)
[2024-02-21 06:27] LABS: Glucose Point of Care 79 mg/dL (70-110)
[2024-02-21] MEDS: piperacillin-tazobactam 3.375 GM in sodium chloride 0.9% (plus) 50 ML IV ×3 (08:04→23:28)
[2024-02-21] MEDS: pantoprazole 40 mg SDV IVP ×2 (08:12→17:58)
[2024-02-21] MEDS: amlodipine 10 mg Tablet PO (08:12)
[2024-02-21] MEDS: losartan 50 mg Tablet PO (08:13)
[2024-02-21] MEDS: tamsulosin 0.4 mg Capsule 0.400000000000000022 MG PO (08:14)
[2024-02-21] MEDS: aspirin 325 mg Tablet PO (08:14)
[2024-02-21] MEDS: lidocaine 1% 5 ML in potassium chloride premix 100 ML 26.25 ML IV (10:05)
--- NOTE | 2024-02-21 10:17 | PC.NURSE ---
Notified Dr. Flores of patient sounding wet and crackles. Dr. Flores stated patient is going for barrium swallow due to possible aspiration.
[2024-02-21 10:44] LABS: Glucose Point of Care 65 mg/dL (70-110)
[2024-02-21] MEDS: dextrose 10% 250 ML 1000 ML IV (10:59)
--- NOTE | 2024-02-21 11:00 | FL_ITS ---
WS: [id number] Modified barium swallow, 02/21/2024 Clinical Data: Oropharyngeal dysphagia Comparison: None. Fluoroscopy time: 3min [id number] # of spot films: 0 Findings: The patient exhibited premature spillage but with double swallows was able to clear any residue in th e hypopharynx. With thin and thick liquids there was a trace of penetration but no aspiration. The pa tient was unable to propel the barium tablet from the oral pharynx distally. FL/FL barium swallow modifd [id number] Impression: 1. Premature spillage with trace of penetration with thin and thick liquids. 2. Unable to propel the barium tablet from the oral cavity distally
[2024-02-21 12:19] LABS: Glucose Point of Care 100 mg/dL (70-110)
[2024-02-21 14:03] LABS: Glucose Point of Care 95 mg/dL (70-110)
--- NOTE | 2024-02-21 14:13 | P.PN_ITS ---
Subjective 2 Subjective: More alert and awake today. Conversant. He was able to complete a modified barium swallow today. This showed premature spillage with penetration with thin and thick liquids. Hypoglycemic with blood sugar down to 53. Likely from n.p.o. status. Bowel sounds heard in the right lower quadrant today. Patient reports he is unable to pass any flatus. Has not had a bowel movement last 24 hours yet. Currently afebrile and hemodynamically stable. Medications: Reviewed: Yes Vitals/I&O/Wt Last Vital Signs Temp 98.2 F 02/21/24 11:06 Pulse 84 02/21/24 11:06 Resp 16 02/21/24 11:06 BP 120/66 02/21/24 11:06 Pulse Ox 95 02/21/24 11:06 O2 Del Method Room Air 02/21/24 11:06 O2 Flow Rate 2 02/16/24 02:00 02/20/24 02/21/24 02/21/24 22:59 06:59 14:59 Intake Total 50 / 155 50 / 205 Output Total 1350 / 1350 50 / 1400 Balance -1300 / -1195 0 / -1195 Weight last 48 hrs Weight 84.414 kg Weight 84.595 kg Physical Exam 2 Narrative: General: No acute distress, AO x3 HEENT: PERRLA, pupils bilaterally equal and reactive, pallors not present Chest: Normal vesicular breath sounds, no added sounds, equal good air entry bilaterally CVS: S1-S2 regular, no murmurs, no tachycardia, no gallops, no rubs Abdomen: Soft, distended, nontender, no organomegaly, bowel sounds sluggish Neuro: No focal deficits, no facial deformity, AO x3, power 5/5 in all limbs Urinary Catheter Management: Dougherty: Cath Placed During This Visit: yes, but has since been removed by the nurse Reason for Continuing Indwelling Catheter: Other Urinary Catheter Date of Insertion: 02/17/24 Urinary Catheter Time of Insertion: 14:24 Date Urinary Catheter Removed: 02/16/24 Time Urinary Catheter Discontinued: 17:00 Data 02/21/24 05:02 02/21/24 05:02 A&P Assessment and plan (1) Hypernatremia: Sodium level currently improved at 142. Hypernatremia resolving. Discontinue IV fluids today due to concerns for developing hypervolemia. Lasix 20 mg IV today Replace hypokalemia with 80 mg IV at 10 mg/h Repeat BMP i with a.m. labs (2) Anemia: Postoperatively hemoglobin has remained stable now. Currently at 8.3 Target hemoglobin more than 8 for transfusion Status post iron supplementation until 02/17. . (3) Hypertension: Blood pressure better controlled today Continue home dose of losartan and amlodipine. (4) Encounter for postoperative care: Post right hemicolectomy for intestinal obstruction in a patient with history of rectal mass. (5) SIRS (systemic inflammatory response syndrome): Leukocytosis resolved Most likely reactionary. Continue with IV Zosyn empirically to finish a 7-day course. Negative blood cultures to date Switch diet to mechanical soft for now. Cannot rule out mild aspiration. Pending barium swallow. (6) Elevated lactic acid level: Postoperative status. Resolved now. (7) Obstruction, colon: (8) Colonic mass: (9) Rectal mass: (10) Enlarged prostate: (11) Cerebrovascular accident: (12) S/P right hemicolectomy: (13) Hypotension: Postoperative hypotension. Has resolved. Blood pressure is elevated now. (14) Urinary retention: Plan Encephalopathy: Resolving. Most likely in postoperative status and secondary to hypotension. Chronically sick appearing. Does seem to have history of dementia. Hold off on Seroquel. Seems to be making patient more drowsy. Does have history of CVA. CT head negative for acute abnormality. Out of bed to chair. PT and OT evaluation. Incentive spirometry. CODE STATUS: Discussed in detail with patient's son at bedside. Spouse will be the DPOA. As per the son patient in the past had refused any kind of treatment for the mass which is believed to be cancer in the past as well and would not want any life prolonging measures if needed. CODE STATUS changed to DNR/DNI. Mechanical soft diet. Advance as per speech evaluation. Protonix 40 mg IV twice daily will be sufficient for PUD prophylaxis Heparin 5000 every 8 hourly and SCDs for DVT prophylaxis Plan for today February 20, 2024. Patient is more lethargic today. Continues to saturate 97% on room air. Had a large episode of bilious vomiting yesterday. X-ray of the abdomen showed distended bowel loops consistent with postop ileus. Patient made n.p.o. He was unable to participate with a barium swallow. Chest auscultation reveals bilateral coarse crackles. Concerned that patient may have aspirated. Piperacillin/tazobactam was discontinued yesterday after an empiric 7-day course, will resume again today. Additional dose of Lasix 20 mg IV to be given today. Last echocardiogram dating back to December 2022 shows evidence of grade 1 diastolic heart failure which may potentially be contributing. Sodium remained stable, however hypokalemic again which has been repleted via the IV route. Plan for today February 21, 2024. Patient is more alert and awake today. Bowel sounds are sluggish in the right lower quadrant. Continues to have signs of ileus with abdominal distention. Continues to be n.p.o. for this reason. Was able to complete modified barium swallow today. Patient displays significant premature spillage from the oral cavity into the piriformis and trace to mild penetration episodes with thin and mildly thick liquids. He will likely start with a level 5 diet with moderately thick liquids once able to resume p.o. intake. Discussed with surgery, plan to continue n.p.o. today. Trial of laxatives with mag citrate. If ileus fails to resolve plan to repeat CT abdomen to assess for any new obstruction. Hypokalemia and hypoglycemia likely related to poor oral intake. Received bolus of D. 10% dextrose. Start maintenance 5% dextrose with added KCL at 50 cc an hour. Need to keep monitoring closely for interim development of hypervolemia. Continue piperacillin/tazobactam in view of aspiration. Patient transitioned to medicine service as primary today. Attestations 2 Medical Necessity Statement*: Continued admission for ileus, awaiting return of bowel function, trial of laxatives today. Discharge pending return of bowel function. Coding Level of Care Code Acute Code for Chg Fwd Moderate MDM includes number and complexity of problems actively addressed during encounter, amount and/or complexity of data reviewed/ordered and described risk of complication, morbidity or mortality of management as documented Diagnoses Hypernatremia E87.0 Anemia D64.9 Hypertension I10 Encounter for postoperative care Z48.89 SIRS (systemic inflammatory response syndrome) R65.10 Elevated lactic acid level R79.89 Obstruction, colon K56.609 Colonic mass K63.89 Rectal mass K62.89 Enlarged prostate N40.0 Cerebrovascular accident I63.9 S/P right hemicolectomy Z90.49 Hypotension I95.9 Urinary retention R33.9
[2024-02-21] MEDS: magnesium citrate Btl 296 mL 150 ML PO (15:07)
[2024-02-21] MEDS: FUROsemide 10 mg/mL SDV 2mL 20 MG IVP (15:10)
[2024-02-21] MEDS: lidocaine 1% 5 ML in potassium chloride premix 100 ML 26.5 ML IV (15:11)
[2024-02-21] MEDS: dextrose 5% + KCl 20 mEq 20 MEQ/1,000 ML BAG 50 MEQ IV (15:12)
[2024-02-21 15:43] LABS: Magnesium 1.6 mg/dL (1.7-2.3)
[2024-02-21 16:53] LABS: Glucose Point of Care 109 mg/dL (70-110)
--- NOTE | 2024-02-21 16:59 | P.PN_ITS ---
Subjective 2 Subjective: Patient seen and examined. Modified barium swallow failed with recommendations for level 5 diet with moderately thickened liquids advanced to level 6. No bowel movement last couple days and minimal flatus. Excessive belching Vitals/I&O/Wt Last Vital Signs Temp 98.6 F 02/21/24 16:00 Pulse 95 02/21/24 16:00 Resp 17 02/21/24 16:00 BP 131/69 02/21/24 16:00 Pulse Ox 97 02/21/24 16:00 O2 Del Method Room Air 02/21/24 16:00 O2 Flow Rate 2 02/16/24 02:00 02/21/24 02/21/24 02/21/24 06:59 14:59 22:59 Intake Total 50 / 205 405 / 405 Output Total 50 / 1400 Balance 0 / -1195 405 / 405 Weight last 48 hrs Weight 186 lb 1.6 oz Weight 186 lb 8 oz Physical Exam 2 Narrative: General: No acute distress Abdomen: Soft, appropriately tender, mildly distended Incision clean dry and intact without erythema or exudate Urinary Catheter Management: Dougherty: Cath Placed During This Visit: yes, but has since been removed by the nurse Reason for Continuing Indwelling Catheter: Other Urinary Catheter Date of Insertion: 02/17/24 Urinary Catheter Time of Insertion: 14:24 Date Urinary Catheter Removed: 02/16/24 Time Urinary Catheter Discontinued: 17:00 Data 02/21/24 05:02 02/21/24 05:02 A&P Assessment and plan (1) Colonic mass: (2) Obstruction, colon: (3) Rectal mass: (4) S/P right hemicolectomy: (5) Umbilical hernia: (6) Postoperative ileus: Plan Postoperative day #9 status post open extended right hemicolectomy and primary umbilical hernia repair Level 5 diet with moderately thickened liquids advanced to level 6 Incentive spirometer PT Out of bed to chair is much as possible, ambulate Appreciate hospitalist recommendations Subcu heparin Attestations 2 Medical Necessity Statement*: Continued admission for ileus, awaiting return of bowel function, trial of laxatives today. Discharge pending return of bowel function. Coding Level of Care Code Acute Code for g Fwd Diagnoses Colonic mass K63.89 Obstruction, colon K56.609 Rectal mass K62.89 S/P right hemicolectomy Z90.49 Umbilical hernia K42.9 Postoperative ileus K91.89; K56.7
[2024-02-21] MEDS: atorvastatin 40 mg Tablet 80 MG PO (20:25)
[2024-02-21] MEDS: magnesium hydroxide 30 mL UDC PO (20:25)
[2024-02-21 20:38] LABS: Glucose Point of Care 123 mg/dL (70-110)
[2024-02-22] VITALS (8 sets, daily range): BP systolic 111–125; BP diastolic 53–68; PULSE 85–95; RESP 17–20; TEMP 36.7–37.2; O2SAT 94–96
[2024-02-22] MEDS: ipratropium-albuterol 3 mL Neb INHALATION ×2 (02:52→09:17)
[2024-02-22 05:12] LABS: Basophils # 0.1 10^3/uL (0.0-0.1); Basophils % 0.7 %; Eosinophils # 0.2 10^3/uL (0.0-0.8); Eosinophils % 2.3 %; Hematocrit 26.1 % (37-53); Lymphocytes # 1.4 10^3/uL (0.8-4.8); Lymphocytes % 15.6 %; Mean Corpuscular HGB Conc 29.5 g/dL (30-55); Mean Corpuscular Hemoglobin 20.5 pg (27-33); Mean Corpuscular Volume 69.6 fl (82-101); Mean Platelet Volume 9.3 fL (7.4-10.4); Monocytes # 0.5 10^3/uL (0.2-0.9); Monocytes % 5.4 %; Neutrophils % 74.9 %; Nucleated Red Blood Cells % 0 %; Platelet Count 267 10^3/cmm (157-399); Red Blood Count 3.75 10^6/uL (3.85-5.65); Red Cell Distribution Width 32.2 % (12.1-15.1); White Blood Count 8.95 10^3/uL (3.29-11.43)
[2024-02-22] MEDS: heparin 5,000 unit/mL INJ 1 mL 5000 UNIT SUBCUT (05:27)
[2024-02-22 05:37] LABS: Alanine Aminotransferase 15 U/L (0-41); Albumin Level 2.4 g/dL (3.5-5.2); Alkaline Phosphatase 76 U/L (40-130); Anion Gap 12.7 (5-19); Aspartate Amino Transferase 18 U/L (0-40); Blood Urea Nitrogen 8 mg/dL (8-23); Calcium 7.2 mg/dL (8.5-10.5); Carbon Dioxide 23 mmol/L (22-29); Chloride 107 mmol/L (98-107); Creatinine Clr Calc Pharmacy 64.1275; Globulin 2.2 g/dL (1.3-4.6); Glucose 111 mg/dL (65-115); Osmolality Calculated 289 mOsm/kg (285-295); Sodium 140 mmol/L (136-145); Total Bilirubin 0.5 mg/dL (0.15-1.2); Total Protein 4.6 g/dL (6.6-8.7)
[2024-02-22 05:38] LABS: Magnesium 1.7 mg/dL (1.7-2.3)
[2024-02-22 05:47] LABS: Potassium 2.7 mmol/L (3.5-5.1)
[2024-02-22 06:39] LABS: Glucose Point of Care 105 mg/dL (70-110)
[2024-02-22] MEDS: losartan 50 mg Tablet PO (09:35)
[2024-02-22] MEDS: tamsulosin 0.4 mg Capsule 0.400000000000000022 MG PO (09:35)
[2024-02-22] MEDS: amlodipine 10 mg Tablet PO (09:36)
[2024-02-22] MEDS: piperacillin-tazobactam 3.375 GM in sodium chloride 0.9% (plus) 50 ML IV (09:36)
[2024-02-22] MEDS: aspirin 325 mg Tablet PO (09:36)
[2024-02-22] MEDS: pantoprazole 40 mg SDV IVP (09:46)
[2024-02-22 10:49] LABS: Glucose Point of Care 96 mg/dL (70-110)
[2024-02-22] MEDS: dextrose 5% + KCl 20 mEq 20 MEQ/1,000 ML BAG 50 MEQ IV (10:53)
[2024-02-22] MEDS: potassium chloride oral liq 20 mEq/15 mL UDC 40 MEQ PO (10:54)
--- NOTE | 2024-02-22 11:27 | PM.DCS ---
Discharge Providers Date of Admission: 02/12/24 14:58 Date of Discharge: February 22, 2024 Attending Provider at Admission: Marcus Calderon DO Attending Provider at Discharge: Betty Starks MD Consults: General surgery Primary Care Provider: Erik Morgan MD Diagnoses at Discharge Discharge Diagnosis (1) Colonic mass: Status: Acute (2) Obstruction, colon: Status: Acute (3) Rectal mass: Status: Acute (4) S/P right hemicolectomy: Status: Acute (5) Umbilical hernia: Status: Acute (6) Postoperative ileus: Status: Acute Reason for Visit Reason for Visit: N/V/D, weakness Brief History: Patient presented with abdominal pain, anorexia, and diarrhea. He had a known mass in the transverse colon which she elected not to treat. CT abdomen pelvis showed large bowel obstruction with an obstructing mass in his distal transverse colon with pneumatosis of the cecum and a possible rectal mass. Hospital Course Hospital Course Large bowel obstruction Transverse colon mass Rectal mass ? Status post right hemicolectomy on 02/12/2024 ? Hospital course complicated by ileus which has resolved ? He had a modified barium swallow on 02/21/2024; on a level 5 diet with moderately thick liquid ? Continue laxatives as needed Hypernatremia ? This is resolved Hypokalemia ? This has been repleted; repeat labs in 1 week Chronic anemia ? Monitor hemoglobin Hypertension ? BP stable; continue start amlodipine, increase losartan to 50 mg daily ? He is also on hydrochlorothiazide Acute urinary retention ? He had an indwelling Dougherty catheter placed which was DC'd prior to discharge ? He was started on tamsulosin Patient transferred in stable condition to SNF. Physical Exam Const: COMMON NORMALS: no acute distress and patient oriented x3 HENMT: COMMON NORMALS: normocephalic and atraumatic HEAD & SCALP: normocephalic and atraumatic Eye: COMMON NORMALS: Equal, round and reactive pupils present and EOMs intact bilaterally PUPIL: Yes Equal, round and reactive pupils present Neck/C-Spine: COMMON NORMALS: supple and no JVD Chest: COMMONS NORMALS: normal inspection of the chest Resp: COMMON NORMALS: normal respiratory effort and clear to auscultation bilaterally AUSCULTATION: clear to auscultation bilaterally Cardio: COMMON NORMALS: no JVD, regular rate, regular rhythm, S1 normal heart sound present, S2 normal heart sound present, No gallops present (Cardio), No murmurs present (Cardio) and No rub (Cardio) RATE: regular rate RHYTHM: regular rhythm HEART SOUNDS: S1 normal heart sound present and S2 normal heart sound present GI: COMMON NORMALS: Normal to inspection, nondistended, normoactive bowel sounds present, Soft to palpation and non-tender PALPATION: Yes Soft to palpation Extremity: COMMON NORMALS: no clubbing, cyanosis or edema Neuro: COMMON NORMALS: patient oriented x3 Psych: COMMON NORMALS: Normal thought process present and cooperative THOUGHT PROCESS: Normal thought process present Skin: COMMON NORMALS: no rashes or lesions noted GENERAL SKIN EXAM: no rashes or lesions noted Urinary Catheter Management: Dougherty: Cath Placed During This Visit: yes, but has since been removed by the nurse Reason for Continuing Indwelling Catheter: Acute Urinary Retention or Obstruction Urinary Catheter Date of Insertion: 02/17/24 Urinary Catheter Time of Insertion: 14:24 Date Urinary Catheter Removed: 02/16/24 Time Urinary Catheter Discontinued: 17:00 Discharge Data Studies Completed and Pending Completed Studies During Hospitalization Category Date Time Status CT abdomen pelvis wo con 14487 Stat Cat Scan 02/12/24 11:[address] head wo con* [id number] Routine Cat Scan 02/13/24 09:46 Completed CXRP [XR chest 1V portable [id number]] Routine Exams 02/15/24 09:00 Completed [place] barium swallow modifd [id number] Routine Exams 02/21/24 11:00 Completed XR abdomen 1V* [id number] Routine Exams 02/15/24 10:01 Completed XR abdomen 1V* [id number] Routine Exams 02/20/24 13:43 Completed XR chest 1V [id number] Routine Exams 02/14/24 00:47 Completed XR chest 1V portable [id number] Routine Exams 02/17/24 08:56 Completed XR chest 1V portable [id number] Stat Exams 02/12/24 13:28 Completed Pathology: Surgical [PTH] Routine Pth 02/12/24 19:42 Completed Radiology Impressions Abdomen/Pelvis CT 02/12/24 11:56 IMPRESSION: 1. Diffuse nodular thickening of the mid and distal transverse colon with luminal narrowing highly suspicious for neoplasm progressed compared to previous. Transition point to normal caliber bowel distal to the suspected neoplasm. Diffuse bowel obstruction proximal to the transition point. Recommend further evaluation with colonoscopy. 2. Induration about the suspected neoplasm suspicious for surrounding mesenteric invasion. 3. Proximal bowel obstruction with air-fluid level in the stomach and moderate esophageal hiatal hernia with fluid. 4. Diffuse distended loops of small bowel with air-fluid levels. 5. Distended RIGHT colon and proximal transverse colon with pneumatosis in the cecum and hepatic flexure. 6. Markedly enlarged nodular prostate suspicious for neoplasia with bladder outlet obstruction and nodular thickening of the seminal vesicles. 7. Nodular thickening of the rectosigmoid segment which may be due to stool but neoplasm not excluded. 8. Cholelithiasis with gallbladder wall calcification. Notified Ashish Mcgee DO at 02/12/2024 1:[address] 02/13/24 09:46 IMPRESSION: 1. No evidence of intracranial hemorrhage or mass effect. 2. Moderate small vessel changes and moderate parenchymal volume loss. 3. Intracranial vascular calcification. 4. No acute intracranial findings. Chest X-Ray 02/17/24 08:56 IMPRESSION: 1. Left basilar/retrocardiac opacity that appears similar to prior. 2. Sclerotic focus in the proximal left humerus could represent a metastatic lesion. Consider CT of the left shoulder. Abdomen X-Ray 02/20/24 13:43 IMPRESSION: 1. Multiple loops of dilated small bowel compatible with postoperative ileus versus small bowel obstruction in the proper clinical setting. Modified Barium Swallow 02/21/24 11:00 Impression: 1. Premature spillage with trace of penetration with thin and thick liquids. 2. Unable to propel the barium tablet from the oral cavity distally Laboratory Results WBC 8.95 10^3/uL (3.29-11.43) 02/22/24 04:20 Corrected WBC Cancelled 02/13/24 04:32 RBC 3.75 10^6/uL (3.85-5.65) L 02/22/24 04:20 Hgb 7.70 g/dL (11.27-16.99) L 02/22/24 04:20 Hct 26.1 % (37-53) L 02/22/24 04:20 MCV 69.6 fl (82-101) L 02/22/24 04:20 MCH 20.5 pg (27-33) L 02/22/24 04:20 MCHC 29.5 g/dL (30-55) L 02/22/24 04:20 RDW 32.2 % (12.1-15.1) H 02/22/24 04:20 Plt Count 267 10^3/cmm (157-399) 02/22/24 04:20 MPV 9.3 fL (7.4-10.4) 02/22/24 04:20 Gran % Cancelled 02/13/24 04:32 Neut % (Auto) 74.9 % 02/22/24 04:20 Lymph % (Auto) 15.6 % 02/22/24 04:20 [place] % (Auto) 5.4 % 02/22/24 04:20 Eos % (Auto) 2.3 % 02/22/24 04:20 Baso % (Auto) 0.7 % 02/22/24 04:20 Reticulocyte % (Auto) 0.9 % (0.5-2.0) 02/13/24 05:40 Neut # (Auto) 6.70 10^3/uL (1.8-7.7) 02/22/24 04:20 Lymph # (Auto) 1.4 10^3/uL (0.8-4.8) 02/22/24 04:20 [place] # (Auto) 0.5 10^3/uL (0.2-0.9) 02/22/24 04:20 Eos # (Auto) 0.2 10^3/uL (0.0-0.8) 02/22/24 04:20 Baso # (Auto) 0.1 10^3/uL (0.0-0.1) 02/22/24 04:20 Absolute Gran (auto) Cancelled 02/13/24 04:32 Nucleated RBC % (auto) 0 % 02/22/24 04:20 Total Counted 100 (0-100) 02/17/24 06:25 Atypical Lymphs % 0.0 % (0-5) 02/17/24 06:25 Absolute Neutrophils 9.3 10^3/cmm (1.4-6.5) H 02/17/24 06:25 Segmented Neutrophils 76 % 02/17/24 06:25 Abs Segm Neuts (Man) 8.9 10/cmm (1.6-7.1) H 02/17/24 06:25 Band Neutrophils 3.0 % 02/17/24 06:25 Abs Band Neuts (Man) 0.4 10^3/cmm (0.0-1.2) 02/17/24 06:25 Absolute Lymphocytes 1.4 10^3/cmm (1.2-3.4) 02/17/24 06:25 Lymphocytes (Manual) 12 % 02/17/24 06:25 Monocytes (Manual) 1.0 % 02/17/24 06:25 Absolute Monocytes 0.1 10^3/cmm (0.1-0.6) 02/17/24 06:25 Eosinophils (Manual) 4 % 02/17/24 06:25 Absolute Eosinophils 0.5 10^3/cmm (0.0-0.7) 02/17/24 06:25 Basophils (Manual) 0.0 % 02/17/24 06:25 Absolute Basophils 0.0 10^3/cmm (0.0-0.2) 02/17/24 06:25 Metamyelocytes 3.0 % 02/17/24 06:25 Myelocytes 1.0 % 02/17/24 06:25 Nucleated RBCs # 0.0 /100WBC 02/22/24 04:20 Pathologist Review Yes 02/13/24 05:40 Platelet Estimate Normal (Normal) 02/17/24 06:25 Giant Platelets Trace 02/17/24 06:25 Hypochromasia 2+ H 02/13/24 05:40 Poikilocytosis 2+ H 02/17/24 06:25 Anisocytosis 1+ H 02/17/24 06:25 Microcytosis 1+ H 02/13/24 05:40 Sickle Cells 1+ H 02/13/24 05:40 Viry Cells 2+ H 02/13/24 05:40 Acanthocytes (Spur) 1+ H 02/17/24 06:25 Schistocytes 1+ H 02/13/24 05:40 PT 17.80 SECONDS (12.1-14.9) H 02/13/24 05:40 INR 1.42 (0.8-1.2) H 02/13/24 05:40 D-Dimer 6.16 ug/mLFEU (0-0.59) H 02/12/24 11:07 Specimen Type Arterial 02/13/24 02:51 Sample Site Brachial, right 02/13/24 02:51 ABG pH 7.44 (7.35-7.45) 02/13/24 02:51 ABG pCO2 32.5 mmHg (35-45) L 02/13/24 02:51 ABG pO2 66.4 mmHg (80.0-100.0) L 02/13/24 02:51 ABG HCO3 22.2 mmol/L (22-26) 02/13/24 02:51 ABG O2 Saturation 93.2 02/13/24 02:51 ABG Base Excess -1.7 mmol/L (-2.0-2.0) 02/13/24 02:51 Agustin Test N/a 02/13/24 02:51 A-a O2 Gradient 5.3 mmHg (5-10) 02/13/24 02:51 Hematocrit 19.3 % (42-52) L 02/13/24 02:51 Hgb O2 Saturation 91.3 % (95-100) L 02/13/24 02:51 Carboxyhemoglobin 1.2 %THgb (0.4-20.1) 02/13/24 02:51 Methemoglobin 0.9 % (0.4-1.5) 02/13/24 02:51 Total Hemoglobin 6.3 g/dL (14-18) L 02/13/24 02:51 Sodium 140.0 mmol/L (131-143) 02/13/24 02:51 Potassium 2.7 mmol/L (3.5-5.0) L 02/13/24 02:51 Glucose 106.0 mg/dL (70-115) 02/13/24 02:51 Ionized Calcium 1.0 mmol/L (1.1-1.4) L 02/13/24 02:51 O2 Delivery Device Room air 02/13/24 02:51 Data Examination Clerk ID [email or web address] 02/13/24 02:51 Sodium 140 mmol/L (136-145) 02/22/24 04:20 Potassium 2.7 mmol/L (3.5-5.1) L* 02/22/24 04:20 Chloride 107 mmol/L (98-107) 02/22/24 04:20 Carbon Dioxide 23 mmol/L (22-29) 02/22/24 04:20 Anion Gap 12.7 (5-19) 02/22/24 04:20 BUN 8 mg/dL (8-23) 02/22/24 04:20 Creatinine 0.7 mg/dL (0.7-1.2) 02/22/24 04:20 GFR Calculation Not Reportable 02/22/24 04:20 Glucose 111 mg/dL (65-115) 02/22/24 04:20 POC Glucose 96 mg/dL (70-110) 02/22/24 10:46 Calculated Osmolality 289 mOsm/kg (285-295) 02/22/24 04:20 Lactic Acid 1.8 mmol/L (0.5-2.2) 02/13/24 05:40 Lactic Acid (Sepsis) 3.4 mmol/L (0.5-2.2) H 02/13/24 00:37 Calcium 7.2 mg/dL (8.5-10.5) L 02/22/24 04:20 Phosphorus 2.6 mg/dL (2.5-4.5) 02/13/24 00:37 Magnesium 1.7 mg/dL (1.7-2.3) 02/22/24 04:20 Iron 5 ug/dL (59-158) L 02/13/24 07:30 TIBC 92 mcg/dl 02/13/24 07:30 % Saturation 5.4 % (20-50) L 02/13/24 07:30 Unsat Iron Binding 87 ug/dL (112-347) L 02/13/24 07:30 Ferritin 97 ng/mL (30-400) 02/13/24 07:30 Total Bilirubin 0.5 mg/dL (0.15-1.2) 02/22/24 04:20 AST 18 U/L (0-40) 02/22/24 04:20 ALT 15 U/L (0-41) 02/22/24 04:20 Alkaline Phosphatase 76 U/L (40-130) 02/22/24 04:20 Creatine Kinase 47 U/L (39-308) 02/12/24 11:07 Troponin T Baseline 21 ng/L (0-15) H 02/13/24 05:40 Troponin T 120 Minute 13.23 ng/L (0-15) 02/13/24 07:30 Delta Troponin T -7.77 ABS# (0-10) L 02/13/24 07:30 Troponin T Hi Sens 6Hr 11.69 ng/L (0-15) 02/13/24 12:15 Troponin T Hi Sens 6Hr Delta -9.31 ng/L (0-12) L 02/13/24 12:15 C-Reactive Protein 177.9 mg/L (0.0-4.9) H 02/13/24 00:37 NT-Pro-B Natriuret Pep 2515 pg/mL (0-450) H 02/17/24 06:25 Total Protein 4.6 g/dL (6.6-8.7) L 02/22/24 04:20 Albumin 2.4 g/dL (3.5-5.2) L 02/22/24 04:20 Globulin 2.2 g/dL (1.3-4.6) 02/22/24 04:20 Lipase 5 U/L (13-60) L 02/12/24 11:07 Carcinoembryonic Ag 6.0 ng/mL (0.0-4.7) H 02/12/24 11:07 Vitamin B12 943 pg/mL (232-1245) 02/13/24 07:30 Folate 18.0 ng/mL (4.5-32.2) 02/14/24 04:45 Procalcitonin 0.81 ng/mL (0-0.5) H 02/12/24 11:07 TSH 3.24 uIU/mL (0.27-4.20) 02/12/24 13:47 Urine Color Natalia (Yellow) 02/12/24 14:26 Urine Appearance Clear (CLEAR) 02/12/24 14:26 Urine pH 5 (5-7) 02/12/24 14:26 Ur Specific [place] 1.020 (1.005-1.030) 02/12/24 14:26 Urine Protein 1+ (Negative) H 02/12/24 14:26 Urine Glucose (UA) Norm (Normal) 02/12/24 14:26 Urine Ketones 2+ (Negative) H 02/12/24 14:26 Urine Blood Neg (Negative) 02/12/24 14:26 Urine Nitrate Negative (Negative) 02/12/24 14:26 Urine Bilirubin 1+ (Negative) H 02/12/24 14:26 Urine Urobilinogen 4 mg/dL (Negative) H 02/12/24 14:26 Ur Leukocyte Esterase Trace (Negative) H 02/12/24 14:26 Urine RBC None /hpf (0-2) 02/12/24 14:26 Urine WBC Rare /hpf (0-5) 02/12/24 14:26 Ur Squamous Epith Cells 0-4 /hpf (0-5) H 02/12/24 14:26 Amorphous Sediment 1+ /hpf 02/12/24 14:26 Urine Bacteria None /hpf (NONE) 02/12/24 14:26 Hyaline Casts 0-4 /lpf H 02/12/24 14:26 Urine Mucus 1+ /hpf 02/12/24 14:26 Urine Sperm 1+ /hpf 02/12/24 14:26 Vancomycin Trough 10.9 ug/mL (10-15) 02/16/24 08:57 C. difficile (PCR) Negative (Negative) 02/17/24 08:40 SARS-CoV-2 Ag (Rapid) negative (Negative) 02/20/24 09:36 MRSA (PCR) Not detected (NOT DETECTED) 02/14/24 09:40 Mismatch Rep Prtn IHC See report 02/12/24 19:42 Blood Type A Positive 02/12/24 13:47 Rho(D) Type Rh positive 02/12/24 13:47 Antibody Screen Negative 02/12/24 13:47 Crossmatch See Detail 02/12/24 13:47 Vitals Last Vital Signs Temp 98.3 F 02/22/24 07:44 Pulse 95 02/22/24 09:27 Resp 18 02/22/24 09:17 BP 120/64 02/22/24 09:35 Pulse Ox 95 02/22/24 09:17 O2 Del Method Room Air 02/22/24 09:17 O2 Flow Rate 2 02/16/24 02:00 Discharge Plan Discharge Patient Disposition: Xfer SNF Condition: Stable Prescriptions: New losartan 50 mg Tablet 50 mg PO DAILY Qty: 30 0RF Milk of Magnesia 400 mg/5 mL Suspension 30 ml PO BEDTIME Qty: 30 0RF Rx Instructions: Hold for diarrhea tamsulosin 0.4 mg Capsule 0.4 mg PO DAILY Qty: 30 0RF amlodipine 10 mg Tablet 10 mg PO DAILY Qty: 30 0RF cefdinir 300 mg capsule 300 mg PO BID 2 Days Qty: 4 0RF potassium chloride 10 mEq capsule, extended release 10 meq PO DAILY Qty: 7 0RF Continued atorvastatin 40 mg tablet 80 mg PO BEDTIME 30 Days Qty: 180 11RF Senokot-S 8.6-50 mg Tablet 1 tab-cap PO DAILY PRN (Reason: Constipation) acetaminophen 500 mg Tablet 500 mg PO Q6H PRN (Reason: Pain) saw palmetto 450 mg Capsule 450 mg PO BID Rx Instructions: give with food (meal/snack) hydrochlorothiazide 25 mg tablet 12.5 mg PO DAILY aspirin 325 mg tablet 325 mg PO DAILY 30 Days Qty: 30 3RF Discontinued losartan 25 mg tablet 25 mg PO DAILY Qty: 90 3RF Discharge Orders: Discharge Order (Routine); Ordered 02/22/24 Ordered By: Betty Starks Other Ambulatory Orders: Renal Function Panel (Routine) Timeframe: 1 Week Facility: [facility] - Location: Lab - Main Lab Ordered By: Betty Starks Referrals: [facility] [Outside] Marcus Calderon DO [Physician] - 02/29/24 1:15 pm (Call office for appointment We have notified your physician's clinic of the need for a follow-up appointment to be scheduled. If you have not heard from them within the next 2 business days, please call them directly. ) Erik Morgan MD [Primary Care Provider] - Discharge Diet: As Directed Discharge Activity: Resume usual activity Patient Instructions: Opioid Safety Activity Restrictions/Additional Instructions: Dysphagia Lvl 5 diet - minced and moist with moderate thick liquids Discharge Attestations Time Spent in Discharge Care*: greater than 30 min Quality Metrics Clinical Quality Measures [ No reported AMI, CVA or VTE this stay] Coding Level of Care Code Acute Code for Chg Fwd Diagnoses Colonic mass K63.89 Obstruction, colon K56.609 Rectal mass K62.89 S/P right hemicolectomy Z90.49 Umbilical hernia K42.9 Postoperative ileus K91.89; K56.7
[2024-02-22] MEDS: potassium chloride premix 100 ML 50 MEQ IV (11:36)
--- NOTE | 2024-02-22 12:18 | P.PN_ITS ---
Subjective 2 Subjective: Postoperative day 10 status post oratory laparotomy and extended right colectomy for splenic flexure colon cancer. Patient has had a protracted course due to postoperative ileus. In the last 24 hours he has seen an improvement of the ileus, he had 2 large bowel movements this morning, no significant abdominal pain, tolerating diet, no nausea or vomiting. Vitals/I&O/Wt Last Vital Signs Temp 98.9 F 02/22/24 11:44 Pulse 90 02/22/24 11:44 Resp 17 02/22/24 11:44 BP 125/68 02/22/24 11:44 Pulse Ox 94 02/22/24 11:44 O2 Del Method Room Air 02/22/24 09:17 O2 Flow Rate 2 02/16/24 02:00 02/21/24 02/22/24 02/22/24 22:59 06:59 14:59 Intake Total 635 / 1040 50 / 1090 1263.334 / 1263.334 Output Total 1250 / 1250 200 / 1450 Balance -615 / -210 -150 / -360 1263.334 / 1263.334 Weight last 48 hrs Weight 188 lb 3.2 oz Weight 186 lb 1.6 oz Physical Exam 2 GI: OTHER: Abdomen is soft, mildly distended, surgical incision is healing well, minimal tenderness to palpation. Urinary Catheter Management: Dougherty: Cath Placed During This Visit: yes, but has since been removed by the nurse Reason for Continuing Indwelling Catheter: Acute Urinary Retention or Obstruction Urinary Catheter Date of Insertion: 02/17/24 Urinary Catheter Time of Insertion: 14:24 Date Urinary Catheter Removed: 02/16/24 Time Urinary Catheter Discontinued: 17:00 Data 02/22/24 04:20 02/22/24 04:20 A&P Assessment and plan (1) Colonic mass: (2) Obstruction, colon: Plan Is a 88-year-old male with a transverse colon mass who presented with obstruction, he is postoperative day 10 status post exploratory laparotomy and extended right hemicolectomy. Postoperative course have been long due to postoperative ileus. Ileus appears to be resolving, patient is tolerating diet had 2 large bowel movements this morning. No significant additional complaints. All vital signs and laboratory workup are unremarkable except for the potassium that was low and patient is receiving supplementation by the hospitalist team. From the general surgery standpoint patient should continue on a low residue diet upon discharge, he can follow-up in [address] Calderon, he most likely will require additional evaluation with colonoscopy for workup of a possible rectal mass as an outpatient and the patient desires. All other management per hospitalist team. Attestations 2 Medical Necessity Statement*: Per hospitalist Coding Level of Care Code Acute Code for Chg Fwd Diagnoses Colonic mass K63.89 Obstruction, colon K56.609
--- NOTE | 2024-02-22 12:51 | PC.NURSE ---
This nurse contacted Tanvi at [facility] to give report. All questions addressed at this time.
== END 2024-02-22 14:23 | disposition skilled nursing facility (03) | DRG 330 ==
LOC: ER 14:23 → MEDSURG 14:58 → ICU 02-13 04:28 → MEDSURG 02-16 15:17
PROVIDERS: Family Medicine; Internal Medicine; Student in an Organized Health Care Education/Training Program; Admitting Provider Surgery; Emergency Provider Family Medicine; PCP Family Medicine; Visit Provider Student in an Organized Health Care Education/Training Program
PROC: 0DTF0ZZ Resection of Right Large Intestine, Open Approach (ICD-10-PCS; CPT 49000; principal; 2024-02-12 16:20)
DX: C18.4 Malignant neoplasm of transverse colon (principal); D62 Acute posthemorrhagic anemia; N39.0 Urinary tract infection, site not specified; E87.20 Acidosis, unspecified; K91.89 Other postprocedural complications and disorders of digestive system; K56.7 Ileus, unspecified; G93.40 Encephalopathy, unspecified; E87.0 Hyperosmolality and hypernatremia; K42.9 Umbilical hernia without obstruction or gangrene; K66.8 Other specified disorders of peritoneum; E87.5 Hyperkalemia; I10 Essential (primary) hypertension; F17.220 Nicotine dependence, chewing tobacco, uncomplicated; K62.9 Disease of anus and rectum, unspecified; N40.1 Benign prostatic hyperplasia with lower urinary tract symptoms; R33.8 Other retention of urine; E78.5 Hyperlipidemia, unspecified; I95.81 Postprocedural hypotension; Z66 Do not resuscitate; E16.2 Hypoglycemia, unspecified; E87.6 Hypokalemia; Z11.52 Encounter for screening for COVID-19; Z86.73 Personal history of transient ischemic attack (TIA), and cerebral infarction without residual deficits; Z79.82 Long term (current) use of aspirin
CPT/HCPCS: 36415; 36416; 36430; 36600; 51702; 70450; 71045; 74018; 74176; 74230; 80048; 80051; 80053; 80202; 80503; 81001; 82330; 82378; 82550; 82607; 82728; 82746; 82805; 82962; 83540; 83550; 83605; 83690; 83735; 83880; 84100; 84145; 84443; 84484; 85007; 85025; 85045; 85378; 85610; 86140; 86850; 86900; 86920; 87040; 87426; 87493; 87641; 88302; 88309; 88341; 88342; 92610; 92611; 93005; 94640; 96365; 96366; 96367; 96372; 96374; 96375; 96376; 97110; 97116; 97161; 97530; 99285; C9113; J0330; J1100; J1644; J1756; J1940; J2270; J2371; J2405; J2543; J2704; J3010; J3370; J3372; J3480; J3490; J7030; J7042; J7050; J7070; J7799; P9016; P9045; P9046

== ENCOUNTER → 2024-03-01 10:53 | Outpatient (BNVA) | payer MEDICARE, OTHER, SELFPAY | PROVIDERS: PCP Family Medicine; Visit Provider Surgery | DX: K62.89 Other specified diseases of anus and rectum (principal); Z90.49 Acquired absence of other specified parts of digestive tract; C18.9 Malignant neoplasm of colon, unspecified | CPT/HCPCS: 99204 ==

== ENCOUNTER 2024-03-05 07:28 | Oncology outpatient (recurring) (ONCR) | payer MEDICARE, OTHER, SELFPAY ==
[2024-03-05 10:47] LABS: Alanine Aminotransferase 40 U/L (0-41); Albumin Level 2.6 g/dL (3.5-5.2); Alkaline Phosphatase 151 U/L (40-130); Aspartate Amino Transferase 48 U/L (0-40); Blood Urea Nitrogen 15 mg/dL (8-23); Calcium 7.1 mg/dL (8.5-10.5); Carbon Dioxide 27 mmol/L (22-29); Chloride 104 mmol/L (98-107); Creatinine Clr Calc Pharmacy 61.5251; Glucose 98 mg/dL (65-115); Iron 54 ug/dL (59-158); Osmolality Calculated 293 mOsm/kg (285-295); Percent Saturation 36.4 % (20-50); Sodium 141 mmol/L (136-145); Total Bilirubin 0.5 mg/dL (0.15-1.2); Total Iron Binding Capacity 148 mcg/dl; Total Protein 5.6 g/dL (6.6-8.7); Unsaturated Iron Binding 94 ug/dL (112-347); Vitamin B12 867 pg/mL (232-1245)
[2024-03-05 10:51] LABS: Anion Gap 13.1 (5-19); Potassium 3.1 mmol/L (3.5-5.1)
[2024-03-05 11:00] LABS: Ferritin 3463 ng/mL (30-400)
[2024-03-05 13:40] LABS: Carcinoembryonic Antigen 7.6 ng/mL (0.0-4.7)
== END 2024-03-31 23:59 | disposition home or self-care (01) ==
PROVIDERS: Internal Medicine; PCP Family Medicine; Visit Provider Internal Medicine Medical Oncology
DX: C18.4 Malignant neoplasm of transverse colon (principal); F17.220 Nicotine dependence, chewing tobacco, uncomplicated; I10 Essential (primary) hypertension; Z90.49 Acquired absence of other specified parts of digestive tract; R97.20 Elevated prostate specific antigen [PSA]; D64.9 Anemia, unspecified; E87.6 Hypokalemia; N40.0 Benign prostatic hyperplasia without lower urinary tract symptoms; R91.1 Solitary pulmonary nodule; Z79.899 Other long term (current) drug therapy
CPT/HCPCS: 36415; 80053; 82378; 82607; 82728; 83540; 83550; 84153; 99204

== ENCOUNTER 2024-03-06 11:25 | Day surgery (SDC) | payer MEDICARE, OTHER, SELFPAY ==
[2024-03-06 11:49] VITALS: BP 120/61; PULSE 92; RESP 18; TEMP 36.2; O2SAT 91
--- NOTE | 2024-03-06 11:58 | W.PM.OPSUD ---
Surgery/Procedure H&P Update DATE OF PROCEDURE: March 06, 2024 DATE H&P PERFORMED: 03/01/24 H&P UPDATE INFORMATION: I have reviewed H&P completed within last 30 days, I have examined patient prior to procedure and No changes to prior documentation PLANNED PROCEDURE: Operation Date: 03/06/24 12:45 Proposed Procedures p Sigmoidoscopy 39667, G0105, C18.9(Not Applicable) - Marcus Calderon, DO
--- NOTE | 2024-03-06 12:05 | ANES.PREANE2 ---
Pre-Anesthetic Assessment Height/Weight: Height 1.68 m Weight 83.007 kg Temp Pulse Resp BP Pulse Ox O2 Del Method 97.2 F L 92 18 120/61 91 Room Air 03/06/24 11:49 03/06/24 11:49 03/06/24 11:49 03/06/24 11:49 03/06/24 11:49 03/06/24 11:49 Preop Diagnosis: Colon CA Operation Date: 03/06/24 12:45 Proposed Procedures p Sigmoidoscopy 54871, G0105, C18.9(Not Applicable) - Marcus Calderon DO Familial anesthetic complications: none Was Beta Ricardo taken within 24 hours: N/A Was Clonidine taken within 24 hours: N/A Last intake: Intake Last Liquid Date 03/05/24 Last Liquid Time 19:00 Last Solid Date 03/04/24 Last Solid Time 18:00 Last Intake: 19:00 Social No alcohol and No tobacco Exam alert, oriented x 3, clear to auscultation bilaterally and regular rate & rhythm Airway Submandibular: within normal limits Cervical ROM: within normal limits Mallampati: Class II Dentition: false Pulmonary None reported CV/HEM Congestive Heart Failure and Hypertension None reported Hepatic None reported GI Gastroesophageal Reflux Disease Metabolic None reported Musc/skel Lower Back Pain and Osteoarthritis/DJD Neuropsych Cerebrovascular Accident (Right sided weakness, Left CEA) and Transient Ischemic Attack Anesthetic Plan ASA status: 3 Anesthesia: MAC Risk of > 500 ml blood loss (7ml/kg in children): No Medications/Allergies Home Medications Medication Instructions Recorded Confirmed Last Taken Type aspirin 325 mg tablet 325 mg PO DAILY 30 days #30 tabs 01/29/23 03/05/24 03/01/24 Rx atorvastatin 40 mg tablet 80 mg (2 x 40 mg) PO BEDTIME 30 05/04/23 03/05/24 03/05/24 Rx days #180 tabs hydrochlorothiazide 25 mg tablet 12.5 mg PO DAILY 02/12/24 03/05/24 03/05/24 History saw palmetto 450 mg capsule 450 mg PO BID 02/12/24 03/05/24 03/05/24 History sennosides 8.6 mg-docusate sodium 1 tab-cap PO DAILY PRN Constipation 02/12/24 03/05/24 03/05/24 History 50 mg tablet (Senokot-S) amlodipine 10 mg tablet 10 mg PO DAILY #30 tabs 02/22/24 03/05/24 03/05/24 Rx losartan 50 mg tablet 50 mg PO DAILY #30 tabs 02/22/24 03/05/24 03/05/24 Rx potassium chloride 10 mEq 10 meq PO DAILY #7 caps 02/22/24 03/05/24 03/05/24 Rx capsule,extended release tamsulosin 0.4 mg capsule 0.4 mg PO DAILY #30 caps 02/22/24 03/05/24 03/05/24 Rx magnesium hydroxide 400 mg/5 mL 30 ml PO BEDTIME PRN Constipation 03/05/24 03/05/24 03/05/24 History oral suspension (Milk of Magnesia) menthol 0.44 %-zinc oxide 20.6 % 1 applic topical PRN PRN redness 03/05/24 03/05/24 03/05/24 History topical ointment (Calmoseptine) Allergies Allergy/AdvReac Type Severity Reaction Status Date / Time Sulfa (Sulfonamide Allergy Severe Unknown Verified 03/05/24 09:10 Antibiotics) acetaminophen [From Percocet] AdvReac Severe stomach Verified 03/05/24 09:10 pain oxycodone [From Percocet] AdvReac Severe stomach Verified 03/05/24 09:10 pain [facility] Anesthesia Medical History (Updated 03/05/24 @ 08:48 by Shade Lundy MD) Colon adenocarcinoma Hypertension Anemia Hypokalemia Hyperlipidemia DJD (degenerative joint disease) Carotid artery disease 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) Cerebrovascular accident Surgical History S/P right hemicolectomy History of cataract surgery History of left-sided carotid endarterectomy Family History Other Cancer Social History Smoking and tobacco/nicotine status: former use of tobacco/nicotine Alcohol intake: never Data Anesthesia Cardiac Studies: Echocardiogram 01/26/23
[2024-03-06] MEDS: sodium chloride 0.9% 1,000 ML 30 ML IV (12:12)
[2024-03-06 13:17] VITALS: BP 120/84; PULSE 81; RESP 16; TEMP 36.1; O2SAT 98
[2024-03-06 13:31] VITALS: BP 106/63; PULSE 82; RESP 16; O2SAT 95
--- NOTE | 2024-03-06 14:14 | PC.NURSE ---
Report called to nurse Tinajero at [facility]. Passed along to [facility] that son and patient are requesting DPOA paperwork completed. Unable to complete here at this time due to today's anesthesia. Dr Calderon will see patient again in clinic in 2 weeks. Referral sent to colorectal surgeon by [facility]. Son at bedside and received all DC instructions with patient. Verbalized understanding. Denies needs at this time.
--- NOTE | 2024-03-06 14:15 | ANE.PACU2 ---
Inpatient post-anesthesia follow up: Airway intact: Yes Vital signs: Temperature 97.0 F Pulse Rate 82 Respiratory Rate 16 Blood Pressure 106/63 Pulse Oximetry 95 Oxygen Delivery Me thod Room Air Oxygen Flow Rate Fraction of Inspir ed Oxygen Hydration adequate: Yes Nausea and vomiting: No Pain level: 1 Mental status: Baseline
[2024-03-06 14:48] LABS: Carcinoembryonic Antigen 8.2 ng/mL (0.0-4.7)
[2024-03-12 11:39] LABS: Mismatch Repari Proteins-IHC See Report
== END 2024-03-06 14:15 | disposition home or self-care (01) ==
PROVIDERS: PCP Family Medicine; Visit Provider Surgery
PROC: 0DJD8ZZ Inspection of Lower Intestinal Tract, Via Natural or Artificial Opening Endoscopic (ICD-10-PCS; CPT 45330; principal; 2024-03-06 12:45)
DX: C18.9 Malignant neoplasm of colon, unspecified (principal); K64.8 Other hemorrhoids; D12.5 Benign neoplasm of sigmoid colon; C20 Malignant neoplasm of rectum; I11.0 Hypertensive heart disease with heart failure; I50.9 Heart failure, unspecified; Z86.73 Personal history of transient ischemic attack (TIA), and cerebral infarction without residual deficits; Z79.82 Long term (current) use of aspirin; I25.10 Atherosclerotic heart disease of native coronary artery without angina pectoris; Z87.891 Personal history of nicotine dependence
CPT/HCPCS: 36415; 45331; 45338; 82378; 88305; 88341; 88342; J2704; J7030